=== PATIENT | male | born 1965 | race Caucasian/White ===

== ENCOUNTER 2016-04-04 14:46 | Inpatient (IN) | payer MEDICARE, OTHER ==
[2016-04-04 15:16] LABS: Glucose,Whole Blood 53 mg/dL (75-99)
[2016-04-04] MEDS ORDERED: DEXTROSE 50%-WATER 50 ML SYRINGE IVP STA (15:16)
[2016-04-04] MEDS ORDERED: DEXTROSE 5%-0.45% NACL 1,000 ML IV ONE (15:16)
[2016-04-04 15:40] LABS: Basophils # (A) 0.1 k/uL (0-0.2); Basophils % (A) 1 %; CH 33.5; CHCM 33.4; Eosinophils # (A) 0.2 k/uL (0-0.7); Eosinophils % (A) 3 %; HCT 26.3 % (39.0-53.0); HGB 8.4 gm/dL (13.0-17.5); Luc # (Auto) 0.14; Luc % (Auto) 3; Lymphocytes # (A) 0.7 k/uL (1.0-4.8); Lymphocytes % (A) 13 %; MCHC 31.8 g/dL (31.0-37.0); MCV 100.5 fL (80.0-100.0); Macrocytosis Slight; Mean Platelet Volume 9.4; Monocytes # (A) 0.3 k/uL (0-1.0); Monocytes % (A) 6 %; Neutrophils # (A) 4.1 k/uL (1.3-7.7); Neutrophils % (A) 74 %; RBC 2.61 m/uL (4.30-5.90); RDW 14.7 % (11.5-15.5); WBC 5.5 k/uL (3.8-10.6); WBC (Perox) 5.96
--- NOTE | 2016-04-04 15:42 | ED ---
General Adult HPI - General Chief complaint: Altered Mental Status Stated complaint: altered mental status Time Seen by Provider: 04/04/16 15:03 Source: patient, RN notes reviewed, old records reviewed Mode of arrival: EMS Limitations: no limitations - History of Present Illness Initial comments: This is a 50-year-old male here for evaluation. This patient presents here for evaluation of weakness. Debility. Altered mental status. Patient's by EMS to be hypoglycemic, he was treated and upon arrival to the emergency room he is again hypoglycemic. He has served from diabetes as well as chronic renal failure on dialysis no fevers, patient's poor strain secondary to clinical state history obtained from EMS - Related Data Home Medications Medication Instructions Recorded Confirmed Insulin Detemir [Levemir] 10 unit SQ DAILY 09/07/14 04/04/16 hydrALAZINE HCL [Apresoline] 50 mg PO TID 09/07/14 04/04/16 Calcium Acetate [Phoslo] 1,334 mg PO AC-BID 11/09/15 04/04/16 Insulin Aspart [NovoLOG] See Protocol SQ ACHS 11/09/15 04/04/16 Prochlorperazine [Compazine] 10 mg PO Q6H PRN 11/09/15 04/04/16 amLODIPine [Norvasc] 10 mg PO DAILY 11/09/15 04/04/16 Ketoconazole 2% Shampoo [Nizoral] 1 applic TOPICAL Q4D PRN 04/04/16 04/04/16 oxyCODONE HCL 20 mg PO TID 04/04/16 04/04/16 Previous Rx's Medication Instructions Recorded Labetalol [Trandate] 400 mg PO BID 30 Days 08/20/13 Allergies Allergy/AdvReac Type Severity Reaction Status Date / Time codeine AdvReac Mild Itching Verified 11/09/15 12:30 Review of Systems ROS Statement: Those systems with pertinent positive or pertinent negative responses have been documented in the HPI. ROS Other: All systems not noted in ROS Statement are negative. Past Medical History Past Medical History: Diabetes Mellitus, Renal Disease Additional Past Medical History / Comment(s): ESRD on hemodialysis and AV fistula in left arm; gastroparesis with gastritis; diabetic retinopathy with legal blindness; R eye glaucoma, non ishchemic cardiomyopathy; recurrent pericarditis; chronic back pain, diabetic neuropathy, chronic low back pain, metabolic encephalopathy, hyperosmolar nonketotic, neck fracture and neck pain, hyperglycemia, LVH-2-17-15 TO ER WITH FALL,CONFUSION,CRD. left arm fistula. History of Any Multi-Drug Resistant Organisms: MRSA Date of last positivie culture/infection: 11/04/2013 MDRO Source:: Blood, chest dialysis port Additional Past Surgical History / Comment(s): Eye surgery, colonoscopy, egd, av fistula left arm, R port removal due to infection-MRSA in port and blood. Past Anesthesia/Blood Transfusion Reactions: No Reported Reaction Past Psychological History: No Psychological Hx Reported, Anxiety Additional Psychological History / Comment(s): Pt lives with at home. Pt is fairly independent with most ADL's. His helps when needed. Pt has a cane which he uses most of the time. He has a walker when he feels he needs it- he uses it rarely. .MANAGE his meds and checks his blood sugar.(BUT APPARENTLY NOT THERE BECAUSE SHE IS IN ALF CURRENTLY) They have been over 20 yrs. Smoking Status: Current every day smoker Past Alcohol Use History: None Reported Additional Past Alcohol Use History / Comment(s): Pt is quitting smoking - he is down to a pack a week. He started smoking about 35 yrs ago. Past Drug Use History: Marijuana Additional Drug Use History / Comment(s): Pt will use marijuana if he is having a painful day or if B/P is elevated. He does not use on a daily basis. - Past Family History Mother Family Medical History: Hypertension Father Family Medical History: Cancer Additional Family Medical History / Comment(s): Father has prostate cancer. He is 75 yrs old and very active. Daughter(s) Family Medical History: No Reported History General Exam Limitations: no limitations General appearance: alert, obtunded, in distress, cachectic Head exam: Present: atraumatic, normocephalic, normal inspection Eye exam: Present: normal appearance, PERRL, EOMI. Absent: scleral icterus, conjunctival injection, periorbital swelling ENT exam: Present: normal exam, mucous membranes moist Neck exam: Present: normal inspection. Absent: tenderness, meningismus, lymphadenopathy Respiratory exam: Present: normal lung sounds bilaterally. Absent: respiratory distress, wheezes, rales, rhonchi, stridor Cardiovascular Exam: Present: regular rate, normal rhythm, normal heart sounds. Absent: systolic murmur, diastolic murmur, rubs, gallop, clicks GI/Abdominal exam: Present: soft, normal bowel sounds. Absent: distended, tenderness, guarding, rebound, rigid Extremities exam: Present: normal inspection, full ROM, normal capillary refill. Absent: tenderness, pedal edema, joint swelling, calf tenderness Back exam: Present: normal inspection Neurological exam: Present: alert, oriented X3, CN II-XII intact Psychiatric exam: Present: normal affect, normal mood Skin exam: Present: warm, dry, intact, normal color. Absent: rash Course Vital Signs 04/04/16 04/04/16 14:50 15:25 Temperature 96.9 F L Pulse Rate 85 73 Respiratory 18 20 Rate Blood Pressure 151/72 139/69 O2 Sat by Pulse 97 Oximetry - Reevaluation(s) Reevaluation #1: 04/04/16 15:47 Patient having a re-lowering of blood sugar down into the 50s Reevaluation #2: 04/04/16 15:47 Patient remains and decreased level of responsiveness EKG Findings - EKG Comments: EKG Findings:: EKG shows normal sinus rhythm rate of 70, NM 160, QRS I6, QTc 476 Medical Decision Making - Medical Decision Making 50-year-old male here with multiple medical conditions and comorbidities including renal failure and diabetes. Patient currently with hypoglycemia and altered mental status. He has been 2 more episodes of hypoglycemia here in the emergency room, will be placed on D5 half normal saline admitted for further evaluation and treatment - Lab Data Result diagrams: 04/04/16 15:30 Lab Results 04/04/16 04/04/16 04/04/16 Range/Units 15:11 15:30 15:30 WBC 5.5 (3.8-10.6) k/uL RBC 2.61 L (4.30-5.90) m/uL Hgb 8.4 L (13.0-17.5) gm/dL Hct 26.3 L (39.0-53.0) % MCV 100.5 H (80.0-100.0) fL MCH 32.0 (25.0-35.0) pg MCHC 31.8 (31.0-37.0) g/dL RDW 14.7 (11.5-15.5) % Plt Count 115 L (150-450) k/uL Neutrophils % 74 % Lymphocytes % 13 % Monocytes % 6 % Eosinophils % 3 % Basophils % 1 % Neutrophils # 4.1 (1.3-7.7) k/uL Lymphocytes # 0.7 L (1.0-4.8) k/uL Monocytes # 0.3 (0-1.0) k/uL Eosinophils # 0.2 (0-0.7) k/uL Basophils # 0.1 (0-0.2) k/uL Macrocytosis Slight PT 10.6 (9.0-12.0) sec INR 1.0 (<1.1) APTT 25.2 (22.0-30.0) sec POC Glucose (mg/dL) 53 L (75-99) mg/dL POC Glu Head Baker ID Desi Flores - Radiology Data Radiology results: report reviewed (Chest x-ray negative for acute disease), image reviewed Disposition Clinical Impression: Chronic renal failure, Renal failure (ARF), acute on chronic, Altered mental status, Debility, Hypoglycemia associated with diabetes, Pneumonia Disposition: ADMITTED IP TO THIS [facility] Condition: Serious Referrals: Teresa Golden MD [Primary Care Provider] - 1-2 days
[2016-04-04 15:49] LABS: Partial Thromboplastin Time 25.2 sec (22.0-30.0); Prothrombin Time 10.6 sec (9.0-12.0)
--- NOTE | 2016-04-04 15:51 | XR ---
EXAMINATION TYPE: XR chest 2V DATE OF EXAM: 04/04/2016 3:45 PM COMPARISON: Chest x-ray November 09, 2015. HISTORY: Unresponsive TECHNIQUE: Frontal and lateral views of the chest are obtained. FINDINGS: Worsening reticulonodular interstitial changes are present throughout both lungs. No pleur al effusion or pneumothorax is present bilaterally. The cardiac silhouette size is within normal ward its with atherosclerotic thoracic aorta. The osseous structures are demineralized. IMPRESSION: New or significantly worsening reticulonodular changes bilaterally worrisome for edema a nd/or infiltrates, consider atypical infections.
[2016-04-04 15:55] LABS: Calcium 9.3 mg/dL (8.4-10.2); Magnesium 3.3 mg/dL (1.6-2.3); Phosphorous 5.3 mg/dL (2.5-4.5); Total Protein 6.2 g/dL (6.3-8.2)
[2016-04-04] MEDS ORDERED: PIPERACILLIN-TAZOBACTAM 3.375 GM in DEXTROSE/WATER 1 50ML.BAG IVPB STA (15:55)
[2016-04-04] MEDS ORDERED: LEVOFLOXACIN 750MG-D5W PMX 750 MG in DEXTROSE/WATER 1 150ML.BAG IVPB STA (15:55)
[2016-04-04] MEDS ORDERED: IPRATROPIUM-ALBUTEROL 3 ML NEB INHALATION STA (15:55)
[2016-04-04 16:01] LABS: Creatine Kinase 151 U/L (55-170)
[2016-04-04 16:09] LABS: Glucose,Whole Blood 102 mg/dL (75-99)
[2016-04-04 16:14] LABS: Troponin I <0.012 ng/mL (0.000-0.034)
[2016-04-04 16:16] LABS: Creatine Kinase MB 4.1 ng/mL (0.0-2.4)
[2016-04-04] MEDS ORDERED: SODIUM CHLORIDE 0.9% 1,000 ML IV ONE (16:54)
[2016-04-04 17:17] LABS: Glucose,Whole Blood 80 mg/dL (75-99)
[2016-04-04 18:22] LABS: Glucose,Whole Blood 77 mg/dL (75-99)
[2016-04-04] MEDS: INSULIN LISPRO (humaLOG) 300 UNIT/3 ML VIAL SQ SCH (18:37)
[2016-04-04] MEDS ORDERED: IPRATROPIUM-ALBUTEROL 3 ML NEB INHALATION PRN (18:41)
[2016-04-04 19:48] LABS: Hemoglobin A1C 6.9 % (4.2-6.1)
--- NOTE | 2016-04-04 19:57 | P.HPIM ---
History of Present Illness H&P Date: 04/04/16 Chief Complaint: Hypoglycemia/encephalopathy. This is a 50-year-old male with a previous medical history significant for hypertension and hypertensive cardiovascular disease, hyperlipidemia, diabetes mellitus type 1, end-stage renal disease on hemodialysis, patient has not been under my care for the past 2 years apparently he was at [facility] and apparently was released from there after he was assigned a public guardian currently lives in a [facility] and the patient missed his dialysis once according to him because of the transportation and he ended up becoming severely encephalopathic with hypothermia and the EMS was called and patient was found to be hypoglycemic and the he did receive 1 amp of D50 in route to the ER he was found to be low in the emergency department at [facility] subsequently was placed on D5W at 100 mL an hour this was decreased to 50 mL an hour because the patient is a renal patient and subsequently he was admitted to the hospital for evaluation and nephrology consultation was obtained for possible hemodialysis urgently since the patient missed his dialysis, at the same time had a chest x-ray that showed the infiltrate and possible pulmonary congestion versus pneumonia. He was started on IV anabiotic in the form of Levaquin as well as Zosyn and he was admitted to the hospital for evaluation. He was placed on nebulized treatment in the form of DuoNeb as well patient temperature was a bit low and he was placed on a bear hugger and the instruction was given to the nurse to admit the patient to the monitor bed specifically selective care this time Review of Systems Constitutional: Reports anorexia, Reports chronic headaches, Reports chronic pain, Reports fatigue, Reports sweats, Reports weakness, Reports weight loss Eyes: bilateral loss of vision Ears: deny: decreased hearing Ears, nose, mouth and throat: Denies dysphagia, Denies neck lump, Denies sore throat Cardiovascular: Reports dyspnea on exertion, Reports high blood pressure, Denies chest pain, Denies decreased exercise tolerance, Denies rapid heart beat , Denies shortness of breath, Denies syncope Respiratory: Reports cough, Reports cough with sputum, Reports dyspnea, Denies congestion, Denies sleep apnea, Denies snoring, Denies wheezing Gastrointestinal: Denies abdominal pain, Denies bloating, Denies BRBPR, Denies heartburn, Denies hematemesis, Denies hematochezia, Denies melena, Denies nausea , Denies vomiting Genitourinary: Denies dysuria Musculoskeletal: Reports gait dysfunction, Reports low back pain, Denies myalgias Musculoskeletal: absent: ankle pain, ankle stiffness, ankle swelling, elbow pain , elbow stiffness, elbow swelling, foot pain, foot stiffness, foot swelling, hand pain, hand stiffness, hand swelling, hip pain, hip stiffness, hip swelling , knee pain, knee stiffness, knee swelling, shoulder pain, shoulder stiffness, shoulder swelling, wrist pain, wrist stiffness, wrist swelling Integumentary: Denies pruritus, Denies rash Neurological: Reports confusion, Reports weakness, Denies numbness Psychiatric: Reports anxiety, Reports depression, Reports sadness/tearfulness, Denies suicidal ideation Endocrine: Denies fatigue, Denies weight change Past Medical History Past Medical History: Diabetes Mellitus, GERD/Reflux, Hyperlipidemia, Hypertension, Osteoarthritis (OA), Prostate Disorder, Renal Disease Additional Past Medical History / Comment(s): ESRD on hemodialysis and AV fistula in left arm; gastroparesis with gastritis; diabetic retinopathy with legal blindness; R eye glaucoma, non ishchemic cardiomyopathy; recurrent pericarditis; chronic back pain, diabetic neuropathy, chronic low back pain, metabolic encephalopathy, hyperosmolar nonketotic, neck fracture and neck pain, hyperglycemia, LVH-2-17-15 TO ER WITH FALL,CONFUSION,CRD. left arm fistula. History of Any Multi-Drug Resistant Organisms: MRSA Date of last positivie culture/infection: 11/04/2013 MDRO Source:: Blood, chest dialysis port Additional Past Surgical History / Comment(s): Eye surgery, colonoscopy, egd, av fistula left arm, R port removal due to infection-MRSA in port and blood. Past Anesthesia/Blood Transfusion Reactions: No Reported Reaction Past Psychological History: No Psychological Hx Reported, Anxiety Additional Psychological History / Comment(s): Pt lives with at home. Pt is fairly independent with most ADL's. His helps when needed. Pt has a cane which he uses most of the time. He has a walker when he feels he needs it- he uses it rarely. .MANAGE his meds and checks his blood sugar.(BUT APPARENTLY NOT THERE BECAUSE SHE IS IN HALF-WAY CURRENTLY) They have been over 20 yrs. Smoking Status: Current every day smoker Past Alcohol Use History: None Reported Additional Past Alcohol Use History / Comment(s): Pt is quitting smoking - he is down to a pack a week. He started smoking about 35 yrs ago. Past Drug Use History: Marijuana Additional Drug Use History / Comment(s): Pt will use marijuana if he is having a painful day or if B/P is elevated. He does not use on a daily basis. - Past Family History Mother Family Medical History: Hypertension Father Family Medical History: Cancer Additional Family Medical History / Comment(s): Father has prostate cancer. He is 75 yrs old and very active. Daughter(s) Family Medical History: No Reported History Medications and Allergies Home Medications Medication Instructions Recorded Confirmed Type Insulin Detemir [Levemir] 10 unit SQ DAILY 09/07/14 04/04/16 History hydrALAZINE HCL [Apresoline] 50 mg PO TID 09/07/14 04/04/16 History Calcium Acetate [Phoslo] 1,334 mg PO AC-BID 11/09/15 04/04/16 History Insulin Aspart [NovoLOG] See Protocol SQ ACHS 11/09/15 04/04/16 History Prochlorperazine [Compazine] 10 mg PO Q6H PRN 11/09/15 04/04/16 History amLODIPine [Norvasc] 10 mg PO DAILY 11/09/15 04/04/16 History Ketoconazole 2% Shampoo [Nizoral] 1 applic TOPICAL Q4D PRN 04/04/16 04/04/16 History oxyCODONE HCL 20 mg PO TID 04/04/16 04/04/16 History Allergies Allergy/AdvReac Type Severity Reaction Status Date / Time codeine AdvReac Mild Itching Verified 11/09/15 12:30 Physical Exam Vitals: Vital Signs Temp Pulse Pulse Resp BP BP Pulse Ox 04/04/16 18:51 94.2 F L 04/04/16 18:49 70 19 132/74 97 04/04/16 17:11 64 18 112/60 97 - Constitutional General appearance: mild distress, thin - EENT Eyes: abnormal pupil, no ptosis ENT: normal oropharynx, no thrush Ears: bilateral: normal - Neck Neck: no lymphadenopathy, normal ROM, no rigidity, no stridor, no thyromegaly Carotids: bilateral: upstroke normal Thyroid: bilateral: normal size - Respiratory Respiratory: bilateral: diminished, negative: dullness, rales, rhonchi, wheezing , prolonged expiration, prolonged inspiration - Cardiovascular Rhythm: regular Heart sounds: normal: S1, S2 Abnormal Heart Sounds: no rub, no S3 Gallop, no S4 Gallop, no click - Gastrointestinal General gastrointestinal: normal bowel sounds, soft, no splenomegaly, no tenderness, no umbilical hernia, no ventral hernia - Integumentary Integumentary: normal, normal turgor - Musculoskeletal Musculoskeletal: generalized weakness - Psychiatric Psychiatric: A&O x's 3, no appropriate affect, no intact judgment & insight Results CBC & Chem 7: 04/04/16 15:30 04/04/16 15:30 Thrombosis Risk Factor Assmnt - DVT/VTE Prophylaxis DVT/VTE Prophylaxis: Pharmacologic Prophylaxis ordered, Mechanical Prophylaxis ordered Assessment and Plan Plan: Assessment and plan: 1. Metabolic encephalopathy due to hypoglycemia and worsening uremia due to missed hemodialysis. Admit the patient to the hospital, start the patient on D5W at 50 mL an hour, place the patient in a bear hugger, monitor the patient blood glucose level every hour for the next few hours, and then after that every few hours. 2. Bilateral reticulonodular changes suggestive of atypical infiltrate. Start the patient on Levaquin 500 mg IV piggyback every 48 hours, Zosyn 2.25 g IV piggyback every 8 hours, obtain sputum culture, continue nebulized treatment DuoNeb 3 mL nebulization 4 times every day, oxygen support. 3. Hypertension and hypertensive cardiovascular disease . Continue labetalol 400 mg orally twice every day, hydralazine 50 mg orally 3 times every day, and amlodipine 10 g orally once every day per 4. Diabetes mellitus type 1. Hold off insulin for now because of the hypoglycemia. 5. History of TIA/CVA. Stable. 6. End-stage renal disease on hemodialysis. Consult nephrology for urgent hemodialysis. 7. Chronic low back pain with chronic pain syndrome. Continue oxycodone 20 mg orally 3 times every day. 8. DVT prophylaxis. Continue Lovenox 40 mg subcutaneously every 24 hours. 9. GI prophylaxis. Continue Protonix 40 mg orally once every day. 10. Anemia of renal disease. Monitor CBC. 11. Admitted to inpatient. 12. Estimated length of stay 2 midnights.
[2016-04-04] MEDS ORDERED: IPRATROPIUM-ALBUTEROL 3 ML NEB INHALATION SCH (20:00)
[2016-04-04 20:57] LABS: Glucose,Whole Blood 70 mg/dL (75-99)
[2016-04-04] MEDS ORDERED: INSULIN ASPART 4 UNIT SQ SCH (21:00)
[2016-04-04 21:56] LABS: Glucose,Whole Blood 89 mg/dL (75-99)
[2016-04-04] MEDS: LABETALOL 200 MG TAB PO SCH (22:51)
[2016-04-04] MEDS: hydrALAZINE HCL 50 MG TAB PO SCH (22:51)
[2016-04-04 23:22] LABS: Glucose,Whole Blood 182 mg/dL (75-99)
[2016-04-04] MEDS: PIPERACILLIN-TAZOBACTAM 3.375 GM in DEXTROSE/WATER 1 50ML.BAG IVPB SCH (23:32)
[2016-04-05 00:43] LABS: Glucose,Whole Blood 163 mg/dL (75-99)
[2016-04-05 01:52] LABS: Glucose,Whole Blood 149 mg/dL (75-99)
[2016-04-05 02:53] LABS: Glucose,Whole Blood 156 mg/dL (75-99)
[2016-04-05 04:01] LABS: Hepatitis C Virus IgG Index 0.47
[2016-04-05 04:03] LABS: Hepatitis B Core IgM Index 0.02; Hepatitis B Surface Ag Index 0.05; Hepatitis C Virus IgG Ab Negative (Negative)
[2016-04-05 04:33] LABS: Glucose,Whole Blood 164 mg/dL (75-99)
[2016-04-05 06:24] LABS: Glucose,Whole Blood 166 mg/dL (75-99)
[2016-04-05 06:58] LABS: Basophils % (A) 1 %; CH 32.9; CHCM 31.8; Eosinophils # (A) 0.2 k/uL (0-0.7); Eosinophils % (A) 4 %; HCT 24.5 % (39.0-53.0); HDW 2.27; HGB 7.7 gm/dL (13.0-17.5); Luc # (Auto) 0.14; Luc % (Auto) 3; Lymphocytes % (A) 23 %; MCHC 31.7 g/dL (31.0-37.0); MCV 104.1 fL (80.0-100.0); Macrocytosis Slight; Mean Platelet Volume 8.1; Monocytes # (A) 0.3 k/uL (0-1.0); Monocytes % (A) 8 %; Neutrophils # (A) 2.6 k/uL (1.3-7.7); Neutrophils % (A) 61 %; RBC 2.35 m/uL (4.30-5.90); RDW 14.6 % (11.5-15.5); WBC 4.3 k/uL (3.8-10.6); WBC (Perox) 4.44
[2016-04-05] MEDS: CALCIUM ACETATE 667 MG CAP PO SCH ×2 (07:14→17:00)
[2016-04-05 07:18] LABS: Calcium 8.5 mg/dL (8.4-10.2); Magnesium 2.6 mg/dL (1.6-2.3); Potassium 4.5 mmol/L (3.5-5.1); Total Protein 5.9 g/dL (6.3-8.2)
[2016-04-05] MEDS: INSULIN LISPRO (humaLOG) 300 UNIT/3 ML VIAL SQ SCH ×3 (07:18→16:58)
[2016-04-05 07:45] LABS: Glucose,Whole Blood 176 mg/dL (75-99)
[2016-04-05 08:41] LABS: Glucose,Whole Blood 139 mg/dL (75-99)
[2016-04-05] MEDS ORDERED: INSULIN DETEMIR 100 UNIT/ML 10 ML VIAL SQ SCH (09:00)
[2016-04-05] MEDS ORDERED: ENOXAPARIN 40 MG/0.4 ML SYRINGE SQ SCH (09:00)
[2016-04-05] MEDS ORDERED: LEVOFLOXACIN 750MG-D5W PMX 750 MG in DEXTROSE/WATER 1 150ML.BAG IVPB SCH (09:00)
[2016-04-05] MEDS: amLODIPine 10 MG TAB PO SCH (09:32)
[2016-04-05] MEDS: LABETALOL 200 MG TAB PO SCH ×2 (09:33→20:24)
[2016-04-05] MEDS: hydrALAZINE HCL 50 MG TAB PO SCH ×3 (09:33→23:07)
[2016-04-05] MEDS: PIPERACILLIN-TAZOBACTAM 3.375 GM in DEXTROSE/WATER 1 50ML.BAG IVPB SCH ×3 (09:49→23:08)
[2016-04-05 09:53] LABS: Glucose,Whole Blood 164 mg/dL (75-99)
--- NOTE | 2016-04-05 11:17 | CONS ---
DATE OF CONSULTATION: 04/05/2016 REASON FOR CONSULTATION: End-stage renal disease. HISTORY OF PRESENT ILLNESS: Patient is a 50-year-old white male with a history of end-stage renal disease on hemodialysis on a Thursday, Thursday, Thursday schedule via left arm AV fistula. Patient was admitted to the hospital with complaints of weakness and altered mentation. He has not been to dialysis for more than a week. His last treatment was on the 26 of March. He came in with a BUN of 130 and a creatinine of 11. Patient was dialyzed last night and he will be dialyzed again today. I asked him why he did not show up at the unit and he said he was not feeling well. Patient does have a prior history of noncompliance with his treatments. PAST MEDICAL HISTORY: End-stage renal disease, anemia of chronic disease, CKD bone mineral disorder, blindness, type 1 diabetes, diabetic gastroparesis, diabetic neuropathy and retinopathy. PAST SURGICAL HISTORY: Eye surgery, colonoscopy, left arm AV fistula, EGD. Social history is positive for smoking. No history of drug abuse, but there is history of marijuana use. No other drug abuse. Medications prior to admission included insulin, hydralazine, PhosLo, Norvasc, labetalol. Allergies include CODEINE. REVIEW OF SYSTEMS: As per HPI. Other systems negative for fever, chills, chest pain, cough. Patient did have some nausea and vomiting. No diarrhea. No significant abdominal pain. On examination, currently the patient is awake. He is not in any acute distress. Blood pressure is 157/86, heart rate 76 per minute. He is afebrile. EXAMINATION OF THE HEART: S1 and S2. EXAMINATION OF THE LUNGS: Bilateral breath sounds are heard. ABDOMEN: Soft, nontender. Examination of lower extremities shows edema 2+ bilaterally. INSTRUCTION[employer]CH[employer] SPECIALIST exam is grossly intact. Patient is moving all 4 extremities. Labs show potassium 4.5, sodium 137, BUN down to 70, creatinine 6.9. Hemoglobin 7.7 g/dL. ASSESSMENT: 1. End-stage renal disease on hemodialysis on a Thursday, Thursday, Thursday schedule via left arm AV fistula. Patient did not come for dialysis for about more than a week. His last treatment was March 26 and he came in with significantly elevated BUN and creatinine, which most likely contributed to his altered mentation as well. He was dialyzed last night. We will dialyze him again today and then on Thursday if he is still here. 2. Anemia of chronic disease with significant drop in hemoglobin possibly related to him not being on erythrocyte stimulating agents. Patient is normally maintained on ( ) at the outpatient clinic. No active bleeding is noted at this time. 3. Chronic kidney disease bone mineral disorder. Phosphorus is 4.0. 4. Lower extremity edema and volume overload, expect improvement with hemodialysis today. PLAN: Repeat dialysis today. Patient is advised regarding importance of compliance with his dialysis treatments. May continue empiric antibiotics. Hep-Lock IV fluids. Thank you for this consultation. Will continue to follow the patient with you during his hospitalization.
[2016-04-05 11:35] LABS: Glucose,Whole Blood 264 mg/dL (75-99)
[2016-04-05 12:09] LABS: Glucose,Whole Blood 274 mg/dL (75-99)
[2016-04-05] MEDS ORDERED: ALPRAZolam 0.5 MG TAB PO PRN (13:53)
[2016-04-05] MEDS: PANTOPRAZOLE 40 MG/10 ML VIAL IVP SCH (15:01)
[2016-04-05] MEDS: HYDROmorphone 1 MG/ML 1 ML SYRINGE IVP PRN ×2 (15:02→20:23)
--- NOTE | 2016-04-05 16:37 | P.PN ---
Subjective This is a 50-year-old male with a previous medical history significant for hypertension and hypertensive cardiovascular disease, hyperlipidemia, diabetes mellitus type 1, end-stage renal disease on hemodialysis, patient has not been under my care for the past 2 years apparently he was at medical [place] [facility] [place] and apparently was released from there after he was assigned a public guardian currently lives in a [facility] area [facility] and the patient missed his dialysis once according to him because of the transportation and he ended up becoming severely encephalopathic with hypothermia and the EMS was called and patient was found to be hypoglycemic and the he did receive 1 amp of D50 in route to the ER he was found to be low in the emergency department at [facility] subsequently was placed on D5W at 100 mL an hour this was decreased to 50 mL an hour because the patient is a renal patient and subsequently he was admitted to the hospital for evaluation and nephrology consultation was obtained for possible hemodialysis urgently since the patient missed his dialysis, at the same time had a chest x-ray that showed the infiltrate and possible pulmonary congestion versus pneumonia. He was started on IV anabiotic in the form of Levaquin as well as Zosyn and he was admitted to the hospital for evaluation. He was placed on nebulized treatment in the form of DuoNeb as well patient temperature was a bit low and he was placed on a bear hugger and the instruction was given to the nurse to admit the patient to the monitor bed specifically selective care this time Patient did receive an hour of hemodialysis yesterday, he suffered from severe pain and pressure in the hypogastric area patient was not able to urinate tried to put a catheter in him and was not successful, we'll consult urology for Villeda catheter placement at this time as the patient has significant urine retention, also patient will be placed on Xanax 1 mg orally twice every day as the patient was taken off it abruptly and this is grating hypertensive urgency. Patient also complaining of increased abdominal pain and there is a drop in his able to 7.7. The monitor the patient very closely after putting the Villeda catheter in. Objective - Vital Signs Vital signs: Vital Signs Temp 97.9 F 04/05/16 04:00 Pulse 84 04/05/16 04:00 Resp 16 04/05/16 04:00 BP 164/90 04/05/16 04:00 Pulse Ox 100 04/05/16 04:00 Intake & Output 04/04/16 04/05/16 04/05/16 18:59 06:59 18:59 Intake Total 600 Balance 600 Weight 63 kg Intake: Oral 600 Other: Voiding Method Urinal - Exam - Constitutional General appearance: mild distress, thin - EENT Eyes: abnormal pupil, no ptosis ENT: normal oropharynx, no thrush Ears: bilateral: normal - Neck Neck: no lymphadenopathy, normal ROM, no rigidity, no stridor, no thyromegaly Carotids: bilateral: upstroke normal Thyroid: bilateral: normal size - Respiratory Respiratory: bilateral: diminished, negative: dullness, rales, rhonchi, wheezing , prolonged expiration, prolonged inspiration - Cardiovascular Rhythm: regular Heart sounds: normal: S1, S2 Abnormal Heart Sounds: no rub, no S3 Gallop, no S4 Gallop, no click - Gastrointestinal General gastrointestinal: normal bowel sounds, soft, no splenomegaly, no tenderness, no umbilical hernia, no ventral hernia - Integumentary Integumentary: normal, normal turgor - Musculoskeletal Musculoskeletal: generalized weakness - Psychiatric Psychiatric: A&O x's 3, no appropriate affect, no intact judgment & insight - Labs CBC & Chem 7: 04/05/16 06:20 04/05/16 06:20 Labs: Abnormal Lab Results - Last 24 Hours (Table) 04/04/16 04/04/16 04/05/16 Range/Units 20:55 23:21 00:42 RBC (4.30-5.90) m/uL Hgb (13.0-17.5) gm/dL Hct (39.0-53.0) % MCV (80.0-100.0) fL Plt Count (150-450) k/uL Carbon Dioxide (22-30) mmol/L BUN (9-20) mg/dL Creatinine (0.66-1.25) mg/dL Glucose (74-99) mg/dL POC Glucose (mg/dL) 70 L 182 H 163 H (75-99) mg/dL Magnesium (1.6-2.3) mg/dL Total Protein (6.3-8.2) g/dL 04/05/16 04/05/16 04/05/16 Range/Units 01:50 02:52 04:31 RBC (4.30-5.90) m/uL Hgb (13.0-17.5) gm/dL Hct (39.0-53.0) % MCV (80.0-100.0) fL Plt Count (150-450) k/uL Carbon Dioxide (22-30) mmol/L BUN (9-20) mg/dL Creatinine (0.66-1.25) mg/dL Glucose (74-99) mg/dL POC Glucose (mg/dL) 149 H 156 H 164 H (75-99) mg/dL Magnesium (1.6-2.3) mg/dL Total Protein (6.3-8.2) g/dL 04/05/16 04/05/16 04/05/16 Range/Units 06:20 06:20 06:21 RBC 2.35 L (4.30-5.90) m/uL Hgb 7.7 L (13.0-17.5) gm/dL Hct 24.5 L (39.0-53.0) % MCV 104.1 H (80.0-100.0) fL Plt Count 121 L (150-450) k/uL Carbon Dioxide 17 L (22-30) mmol/L BUN 70 H (9-20) mg/dL Creatinine 6.90 H* (0.66-1.25) mg/dL Glucose 158 H (74-99) mg/dL POC Glucose (mg/dL) 166 H (75-99) mg/dL Magnesium 2.6 H (1.6-2.3) mg/dL Total Protein 5.9 L (6.3-8.2) g/dL 04/05/16 04/05/16 04/05/16 Range/Units 07:31 08:28 09:50 RBC (4.30-5.90) m/uL Hgb (13.0-17.5) gm/dL Hct (39.0-53.0) % MCV (80.0-100.0) fL Plt Count (150-450) k/uL Carbon Dioxide (22-30) mmol/L BUN (9-20) mg/dL Creatinine (0.66-1.25) mg/dL Glucose (74-99) mg/dL POC Glucose (mg/dL) 176 H 139 H 164 H (75-99) mg/dL Magnesium (1.6-2.3) mg/dL Total Protein (6.3-8.2) g/dL 04/05/16 04/05/16 Range/Units 11:15 12:07 RBC (4.30-5.90) m/uL Hgb (13.0-17.5) gm/dL Hct (39.0-53.0) % MCV (80.0-100.0) fL Plt Count (150-450) k/uL Carbon Dioxide (22-30) mmol/L BUN (9-20) mg/dL Creatinine (0.66-1.25) mg/dL Glucose (74-99) mg/dL POC Glucose (mg/dL) 264 H 274 H (75-99) mg/dL Magnesium (1.6-2.3) mg/dL Total Protein (6.3-8.2) g/dL Assessment and Plan Plan: Assessment and plan: 1. Metabolic encephalopathy due to hypoglycemia and worsening uremia due to missed hemodialysis. Admit the patient to the hospital, start the patient on D5W at 50 mL an hour, place the patient in a bear hugger, monitor the patient blood glucose level every hour for the next few hours, and then after that every few hours. 2. Bilateral reticulonodular changes suggestive of atypical infiltrate. Start the patient on Levaquin 500 mg IV piggyback every 48 hours, Zosyn 2.25 g IV piggyback every 8 hours, obtain sputum culture, continue nebulized treatment DuoNeb 3 mL nebulization 4 times every day, oxygen support. 3. Hypertension and hypertensive cardiovascular disease . Continue labetalol 400 mg orally twice every day, hydralazine 50 mg orally 3 times every day, and amlodipine 10 g orally once every day per 4. Diabetes mellitus type 1. Hold off insulin for now because of the hypoglycemia. 5. History of TIA/CVA. Stable. 6. End-stage renal disease on hemodialysis. Consult nephrology for urgent hemodialysis. 7. Chronic low back pain with chronic pain syndrome. Continue oxycodone 20 mg orally 3 times every day. 8. DVT prophylaxis. Continue Lovenox 40 mg subcutaneously every 24 hours. 9. GI prophylaxis. Continue Protonix 40 mg orally once every day. 10. Anemia of renal disease. Monitor CBC. 11. Urinary retention. Urology consultation for Villeda catheter placement. 12. Acute anemia. Start the patient on Protonix 40 mg IV push every 24 hours, CBC to be repeated in the next 24 hours. 13. Anxiety. Start the patient on Xanax 0.5 mg orally twice every day. 14. Chronic pain syndrome. Add Dilaudid 0.5 mg IV push every 4 hours as needed. 15. Prognosis is very guarded.
[2016-04-05 16:55] LABS: Glucose,Whole Blood 208 mg/dL (75-99)
[2016-04-05 20:40] LABS: Glucose,Whole Blood 147 mg/dL (75-99)
[2016-04-05] MEDS: PROCHLORPERAZINE 10 MG TAB PO PRN (23:39)
[2016-04-06 02:21] LABS: Glucose,Whole Blood 205 mg/dL (75-99)
[2016-04-06 06:19] LABS: Glucose,Whole Blood 198 mg/dL (75-99)
[2016-04-06] MEDS: HYDROmorphone 1 MG/ML 1 ML SYRINGE IVP PRN ×2 (06:25→10:49)
[2016-04-06] MEDS: CALCIUM ACETATE 667 MG CAP PO SCH ×2 (06:27→17:17)
[2016-04-06 06:39] LABS: Calcium 8.7 mg/dL (8.4-10.2); Potassium 4.7 mmol/L (3.5-5.1); Total Bilirubin 1.4 mg/dL (0.2-1.3); Total Protein 6.1 g/dL (6.3-8.2)
[2016-04-06] MEDS: INSULIN LISPRO (humaLOG) 300 UNIT/3 ML VIAL SQ SCH ×3 (06:42→17:16)
[2016-04-06 06:44] LABS: Basophils # (A) 0.1 k/uL (0-0.2); Basophils % (A) 1 %; CH 33.2; CHCM 31.9; Eosinophils # (A) 0.1 k/uL (0-0.7); Eosinophils % (A) 2 %; HCT 29.1 % (39.0-53.0); HDW 2.32; HGB 9.1 gm/dL (13.0-17.5); Luc # (Auto) 0.15; Luc % (Auto) 3; Lymphocytes # (A) 1.1 k/uL (1.0-4.8); Lymphocytes % (A) 20 %; MCH 32.8 pg (25.0-35.0); MCHC 31.4 g/dL (31.0-37.0); MCV 104.5 fL (80.0-100.0); Macrocytosis Moderate; Mean Platelet Volume 8.6; Monocytes # (A) 0.3 k/uL (0-1.0); Monocytes % (A) 5 %; Neutrophils % (A) 70 %; RBC 2.78 m/uL (4.30-5.90); RDW 14.5 % (11.5-15.5); WBC 5.7 k/uL (3.8-10.6); WBC (Perox) 5.87
[2016-04-06 08:47] LABS: % Iron Saturation 62.4 % (20-50)
[2016-04-06] MEDS: PIPERACILLIN-TAZOBACTAM 3.375 GM in DEXTROSE/WATER 1 50ML.BAG IVPB SCH ×2 (09:01→15:21)
[2016-04-06] MEDS: hydrALAZINE HCL 50 MG TAB PO SCH ×2 (09:04→15:23)
[2016-04-06] MEDS: amLODIPine 10 MG TAB PO SCH (09:05)
[2016-04-06] MEDS: LABETALOL 200 MG TAB PO SCH ×2 (09:05→20:43)
[2016-04-06] MEDS: ENOXAPARIN 30 MG/0.3 ML SYRINGE SQ SCH (09:08)
[2016-04-06] MEDS: PANTOPRAZOLE 40 MG/10 ML VIAL IVP SCH (09:09)
[2016-04-06] MEDS ORDERED: DARBEPOETIN ALFA 40 MCG/0.4 ML SYRINGE SQ SCH (10:00)
--- NOTE | 2016-04-06 10:01 | P.PN ---
Subjective This is a 50-year-old male with a previous medical history significant for hypertension and hypertensive cardiovascular disease, hyperlipidemia, diabetes mellitus type 1, end-stage renal disease on hemodialysis, patient has not been under my care for the past 2 years apparently he was at medical [facility] [place] and apparently was released from there after he was assigned a public guardian currently lives in a [facility] [place] and the patient missed his dialysis once according to him because of the transportation and he ended up becoming severely encephalopathic with hypothermia and the EMS was called and patient was found to be hypoglycemic and the he did receive 1 amp of D50 in route to the ER he was found to be low in the emergency department at [facility] subsequently was placed on D5W at 100 mL an hour this was decreased to 50 mL an hour because the patient is a renal patient and subsequently he was admitted to the hospital for evaluation and nephrology consultation was obtained for possible hemodialysis urgently since the patient missed his dialysis, at the same time had a chest x-ray that showed the infiltrate and possible pulmonary congestion versus pneumonia. He was started on IV anabiotic in the form of Levaquin as well as Zosyn and he was admitted to the hospital for evaluation. He was placed on nebulized treatment in the form of DuoNeb as well patient temperature was a bit low and he was placed on a bear hugger and the instruction was given to the nurse to admit the patient to the monitor bed specifically selective care this time Patient did receive an hour of hemodialysis yesterday, he suffered from severe pain and pressure in the hypogastric area patient was not able to urinate tried to put a catheter in him and was not successful, we'll consult urology for Villeda catheter placement at this time as the patient has significant urine retention, also patient will be placed on Xanax 1 mg orally twice every day as the patient was taken off it abruptly and this is grating hypertensive urgency. Patient also complaining of increased abdominal pain and there is a drop in his able to 7.7. The monitor the patient very closely after putting the Villeda catheter in. 04/06: Patient is sitting up in bed feeling a bit better today less pain, urology placed a Villeda catheter yesterday, continue current management, monitor the patient very closely for another 24 hours. He'll probably be done as again Thursday and subsequently can be discharged home. Objective - Vital Signs Vital signs: Vital Signs Temp 99.0 F 04/06/16 04:00 Pulse 81 04/06/16 04:00 Resp 16 04/06/16 04:00 BP 168/79 04/06/16 04:00 Pulse Ox 99 04/06/16 04:00 Intake & Output 04/05/16 04/06/16 04/06/16 18:59 06:59 18:59 Intake Total 350 Output Total 500 Balance 350 -500 Weight 62 kg Intake: IV 150 Dextrose 5%-0.45% NaCl 1, 150 000 ml @ 100 mls/hr IV . Q10H ONE Rx#:[id number] Intake, IV Titration 200 Amount Levofloxacin 750Mg-D5w 150 Pmx 750 mg In Dextrose/ Water 1 150ml.bag @ 100 mls/hr IVPB Q24HR [facility] Rx# :[id number] Piperacillin-Tazobactam 3 50 .375 gm In Dextrose/Water 1 50ml.bag @ 12.5 mls/hr IVPB Q8HR [facility] Rx#: [id number] Output: Urine 500 Other: Voiding Method Urinal Indwelling Catheter # Voids 50 # Bowel Movements 1 - Exam - Constitutional General appearance: mild distress, thin - EENT Eyes: abnormal pupil, no ptosis ENT: normal oropharynx, no thrush Ears: bilateral: normal - Neck Neck: no lymphadenopathy, normal ROM, no rigidity, no stridor, no thyromegaly Carotids: bilateral: upstroke normal Thyroid: bilateral: normal size - Respiratory Respiratory: bilateral: diminished, negative: dullness, rales, rhonchi, wheezing , prolonged expiration, prolonged inspiration - Cardiovascular Rhythm: regular Heart sounds: normal: S1, S2 Abnormal Heart Sounds: no rub, no S3 Gallop, no S4 Gallop, no click - Gastrointestinal General gastrointestinal: normal bowel sounds, soft, no splenomegaly, no tenderness, no umbilical hernia, no ventral hernia - Integumentary Integumentary: normal, normal turgor - Musculoskeletal Musculoskeletal: generalized weakness - Psychiatric Psychiatric: A&O x's 3, no appropriate affect, no intact judgment & insight - Labs CBC & Chem 7: 04/06/16 05:51 04/06/16 05:51 Labs: Abnormal Lab Results - Last 24 Hours (Table) 04/05/16 04/05/16 04/05/16 Range/Units 06:20 08:28 09:50 RBC (4.30-5.90) m/uL Hgb (13.0-17.5) gm/dL Hct (39.0-53.0) % MCV (80.0-100.0) fL Plt Count (150-450) k/uL Carbon Dioxide 17 L (22-30) mmol/L BUN 70 H (9-20) mg/dL Creatinine 6.90 H* (0.66-1.25) mg/dL Glucose 158 H (74-99) mg/dL POC Glucose (mg/dL) 139 H 164 H (75-99) mg/dL Magnesium 2.6 H (1.6-2.3) mg/dL Total Bilirubin (0.2-1.3) mg/dL Total Protein 5.9 L (6.3-8.2) g/dL 04/05/16 04/05/16 04/05/16 Range/Units 11:15 12:07 16:51 RBC (4.30-5.90) m/uL Hgb (13.0-17.5) gm/dL Hct (39.0-53.0) % MCV (80.0-100.0) fL Plt Count (150-450) k/uL Carbon Dioxide (22-30) mmol/L BUN (9-20) mg/dL Creatinine (0.66-1.25) mg/dL Glucose (74-99) mg/dL POC Glucose (mg/dL) 264 H 274 H 208 H (75-99) mg/dL Magnesium (1.6-2.3) mg/dL Total Bilirubin (0.2-1.3) mg/dL Total Protein (6.3-8.2) g/dL 04/05/16 04/06/16 04/06/16 Range/Units 20:39 02:19 05:51 RBC 2.78 L (4.30-5.90) m/uL Hgb 9.1 L (13.0-17.5) gm/dL Hct 29.1 L (39.0-53.0) % MCV 104.5 H (80.0-100.0) fL Plt Count 135 L (150-450) k/uL Carbon Dioxide (22-30) mmol/L BUN (9-20) mg/dL Creatinine (0.66-1.25) mg/dL Glucose (74-99) mg/dL POC Glucose (mg/dL) 147 H 205 H (75-99) mg/dL Magnesium (1.6-2.3) mg/dL Total Bilirubin (0.2-1.3) mg/dL Total Protein (6.3-8.2) g/dL 04/06/16 04/06/16 Range/Units 05:51 06:18 RBC (4.30-5.90) m/uL Hgb (13.0-17.5) gm/dL Hct (39.0-53.0) % MCV (80.0-100.0) fL Plt Count (150-450) k/uL Carbon Dioxide 18 L (22-30) mmol/L BUN 45 H (9-20) mg/dL Creatinine 5.29 H* (0.66-1.25) mg/dL Glucose 196 H (74-99) mg/dL POC Glucose (mg/dL) 198 H (75-99) mg/dL Magnesium (1.6-2.3) mg/dL Total Bilirubin 1.4 H (0.2-1.3) mg/dL Total Protein 6.1 L (6.3-8.2) g/dL Microbiology - Last 24 Hours (Table) 04/05/16 18:08 Urine Culture - Preliminary Urine,Catheterized Assessment and Plan Plan: Assessment and plan: 1. Metabolic encephalopathy due to hypoglycemia and worsening uremia due to missed hemodialysis. Admit the patient to the hospital, start the patient on D5W at 50 mL an hour, place the patient in a bear hugger, monitor the patient blood glucose level every hour for the next few hours, and then after that every few hours. 2. Bilateral reticulonodular changes suggestive of atypical infiltrate. Start the patient on Levaquin 500 mg IV piggyback every 48 hours, Zosyn 2.25 g IV piggyback every 8 hours, obtain sputum culture, continue nebulized treatment DuoNeb 3 mL nebulization 4 times every day, oxygen support. 3. Hypertension and hypertensive cardiovascular disease . Continue labetalol 400 mg orally twice every day, hydralazine 50 mg orally 3 times every day, and amlodipine 10 g orally once every day per 4. Diabetes mellitus type 1. Hold off insulin for now because of the hypoglycemia. 5. History of TIA/CVA. Stable. 6. End-stage renal disease on hemodialysis. Consult nephrology for urgent hemodialysis. 7. Chronic low back pain with chronic pain syndrome. Continue oxycodone 20 mg orally 3 times every day. 8. DVT prophylaxis. Continue Lovenox 40 mg subcutaneously every 24 hours. 9. GI prophylaxis. Continue Protonix 40 mg orally once every day. 10. Anemia of renal disease. Monitor CBC. 11. Urinary retention. Urology consultation for Villeda catheter placement. Was done yesterday. 12. Acute anemia. Start the patient on Protonix 40 mg IV push every 24 hours, CBC to be repeated in the next 24 hours. 13. Anxiety. Start the patient on Xanax 0.5 mg orally twice every day. 14. Chronic pain syndrome. Add Dilaudid 0.5 mg IV push every 4 hours as needed. 15. Prognosis is very guarded. 16. Home tomorrow morning.
--- NOTE | 2016-04-06 10:12 | PN ---
Patient is seen for follow-up for end-stage renal disease. He was admitted to the hospital with this severely elevated BUN and creatinine after having missed more than a week off dialysis as outpatient. Patient also had some degree of urine retention and Urology was consulted and Villeda catheter was placed. He was dialyzed yesterday and Thursday night. Patient will be scheduled for routine dialysis tomorrow. On examination, currently blood pressure is 168/79, heart rate 81 per minute. He is afebrile. He is currently sleeping and arousable, not in any acute distress. Heart sounds are heard. Lungs are clear. Examination of lower extremities shows 1+ edema bilaterally. Labs show sodium 140, potassium 4.7. Hemoglobin 9.1 g/dL. ASSESSMENT: 1. End-stage renal disease on hemodialysis on a Thursday, Thursday, Thursday schedule with history of noncompliance having missed dialysis for about a week prior to this admission. Patient will be dialyzed tomorrow. 2. Anemia of chronic disease. Will maintain patient on Aranesp. 3. Urine retention, status post Villeda catheter placement. 4. Fluid overload on initial admission, currently improved. 5. Chronic kidney disease bone mineral disorder. 6. Hypertension, partly volume sensitive, continue current oral medications. PLAN: Hemodialysis in a.m.
[2016-04-06 11:56] LABS: Glucose,Whole Blood 236 mg/dL (75-99)
--- NOTE | 2016-04-06 13:39 | P.GSCN ---
History of Present Illness Consult date: 04/06/16 Reason for Consult: Urinary Retention Requesting physician: Teresa Golden History of present illness: The patient is a 50-year-old white male with end-stage renal disease. He has been on hemodialysis for many years. He was admitted with metabolic encephalopathy related to hypoglycemia and the fact that he missed a hemodialysis appointment. He developed urinary retention. Initial attempts by the nursing staff to place a Villeda catheter were unsuccessful. Ultimately, a coud-tip Villeda catheter was placed yesterday, with a return of 600 mL of urine. The patient denies any prior episodes of urinary retention. He has recently experienced constipation, and states that he had a large bowel movement this morning. Review of Systems - Gastrointestinal Reports constipation - Genitourinary Denies dysuria, Denies hematuria - Neurological Reports confusion Past Medical History Past Medical History: Diabetes Mellitus, GERD/Reflux, Hyperlipidemia, Hypertension, Osteoarthritis (OA), Prostate Disorder, Renal Disease Additional Past Medical History / Comment(s): ESRD on hemodialysis and AV fistula in left arm; gastroparesis with gastritis; diabetic retinopathy with legal blindness; R eye glaucoma, non ishchemic cardiomyopathy; recurrent pericarditis; chronic back pain, diabetic neuropathy, chronic low back pain, metabolic encephalopathy, hyperosmolar nonketotic, neck fracture and neck pain, stated fell and fx vertebra in back. hyperglycemia,. left arm fistula. History of Any Multi-Drug Resistant Organisms: MRSA Year Discovered:: 11/04/2013 MDRO Source:: Blood, chest dialysis port Additional Past Surgical History / Comment(s): Eye surgery, colonoscopy, egd, av fistula left arm, R port removal due to infection-MRSA in port and blood. Past Anesthesia/Blood Transfusion Reactions: No Reported Reaction Past Psychological History: No Psychological Hx Reported, Anxiety Additional Psychological History / Comment(s): SPOKE WITH PT'S PUBLIC LEGAL GUARDIAN CATE-AT TIME OF THIS ADMIT PT IS A FULL CODE .SHE STATED IF PT BECOMES MORE ALERT AND ORIENTATED AND WISHES LATER TO CHANGE CODE STATUS-GIVE HER A CALL AT [phone]. HE STATED THAT SINCE 2014 HE HAD MORENA LIVING AT [facility] AND OF THURSDAY MOVED INTO INDEPENDANT LIVING APT(PT WAS CONFUSED ABOUT THIS WHEN ASKED) Pt has a cane which he uses most of the time. He has a walker when he feels he needs it- pt stated he has been for 25 years but aprt because he was at [facility] since 2014 Smoking Status: Current every day smoker Past Alcohol Use History: None Reported Additional Past Alcohol Use History / Comment(s): Pt is quitting smoking - he is down to a pack a week-WHICH IS DOWN FROM 2-3 PPD He started smoking about 35 yrs ago. Past Drug Use History: Marijuana Additional Drug Use History / Comment(s): Pt will use marijuana if he is having a painful day or if B/P is elevated. He does not use on a daily basis. - Past Family History Mother Family Medical History: Hypertension Father Family Medical History: Cancer Additional Family Medical History / Comment(s): Father has prostate cancer. He is 75 yrs old and very active. Daughter(s) Family Medical History: No Reported History Medications and Allergies Home Medications Medication Instructions Recorded Confirmed Type Insulin Detemir [Levemir] 10 unit SQ DAILY 09/07/14 04/04/16 History hydrALAZINE HCL [Apresoline] 50 mg PO TID 09/07/14 04/04/16 History Calcium Acetate [Phoslo] 1,334 mg PO AC-BID 11/09/15 04/04/16 History Insulin Aspart [NovoLOG] See Protocol SQ ACHS 11/09/15 04/04/16 History Prochlorperazine [Compazine] 10 mg PO Q6H PRN 11/09/15 04/04/16 History amLODIPine [Norvasc] 10 mg PO DAILY 11/09/15 04/04/16 History Ketoconazole 2% Shampoo [Nizoral] 1 applic TOPICAL Q4D PRN 04/04/16 04/04/16 History oxyCODONE HCL 20 mg PO TID 04/04/16 04/04/16 History Allergies Allergy/AdvReac Type Severity Reaction Status Date / Time codeine AdvReac Mild Itching Verified 11/09/15 12:30 Surgical - Exam Vital Signs Pulse Resp BP Pulse Ox 85 18 151/72 97 04/04/16 14:50 04/04/16 14:50 04/04/16 14:50 04/04/16 14:50 - General well developed, well nourished, no distress - Abdomen Abdomen: soft, tender (mild suprapubic tenderness), no guarding, no rigid, no rebound - Genitourinary normal penis with no external lesions, testicles non-tender - Rectum Rectum: normal sphincter tone, no masses, other (prostate mildly enlarged and smooth) Results - Labs 04/06/16 05:51 04/06/16 05:51 Abnormal Lab Results - Last 24 Hours (Table) 04/05/16 04/05/16 04/05/16 Range/Units 09:50 11:15 12:07 RBC (4.30-5.90) m/uL Hgb (13.0-17.5) gm/dL Hct (39.0-53.0) % MCV (80.0-100.0) fL Plt Count (150-450) k/uL Carbon Dioxide (22-30) mmol/L BUN (9-20) mg/dL Creatinine (0.66-1.25) mg/dL Glucose (74-99) mg/dL POC Glucose (mg/dL) 164 H 264 H 274 H (75-99) mg/dL TIBC (261-462) ug/dL % Saturation (20-50) % Ferritin (18-464) ng/mL Total Bilirubin (0.2-1.3) mg/dL Total Protein (6.3-8.2) g/dL 04/05/16 04/05/16 04/06/16 Range/Units 16:51 20:39 02:19 RBC (4.30-5.90) m/uL Hgb (13.0-17.5) gm/dL Hct (39.0-53.0) % MCV (80.0-100.0) fL Plt Count (150-450) k/uL Carbon Dioxide (22-30) mmol/L BUN (9-20) mg/dL Creatinine (0.66-1.25) mg/dL Glucose (74-99) mg/dL POC Glucose (mg/dL) 208 H 147 H 205 H (75-99) mg/dL TIBC (261-462) ug/dL % Saturation (20-50) % Ferritin (18-464) ng/mL Total Bilirubin (0.2-1.3) mg/dL Total Protein (6.3-8.2) g/dL 04/06/16 04/06/16 04/06/16 Range/Units 05:51 05:51 06:18 RBC 2.78 L (4.30-5.90) m/uL Hgb 9.1 L (13.0-17.5) gm/dL Hct 29.1 L (39.0-53.0) % MCV 104.5 H (80.0-100.0) fL Plt Count 135 L (150-450) k/uL Carbon Dioxide 18 L (22-30) mmol/L BUN 45 H (9-20) mg/dL Creatinine 5.29 H* (0.66-1.25) mg/dL Glucose 196 H (74-99) mg/dL POC Glucose (mg/dL) 198 H (75-99) mg/dL TIBC 210 L (261-462) ug/dL % Saturation 62.4 H (20-50) % Ferritin 799 H (18-464) ng/mL Total Bilirubin 1.4 H (0.2-1.3) mg/dL Total Protein 6.1 L (6.3-8.2) g/dL Microbiology - Last 24 Hours (Table) 04/05/16 18:08 Urine Culture - Preliminary Urine,Catheterized Diabetes panel 04/06/16 Range/Units 05:51 Sodium 140 (137-145) mmol/L Potassium 4.7 (3.5-5.1) mmol/L Chloride 98 (98-107) mmol/L Carbon Dioxide 18 L (22-30) mmol/L BUN 45 H (9-20) mg/dL Creatinine 5.29 H* (0.66-1.25) mg/dL Glucose 196 H (74-99) mg/dL Calcium 8.7 (8.4-10.2) mg/dL AST 18 (17-59) U/L ALT 34 (21-72) U/L Alkaline Phosphatase 89 (38-126) U/L Total Protein 6.1 L (6.3-8.2) g/dL Albumin 4.2 (3.5-5.0) g/dL Calcium panel 04/06/16 Range/Units 05:51 Calcium 8.7 (8.4-10.2) mg/dL Albumin 4.2 (3.5-5.0) g/dL Pituitary panel 04/06/16 Range/Units 05:51 Sodium 140 (137-145) mmol/L Potassium 4.7 (3.5-5.1) mmol/L Chloride 98 (98-107) mmol/L Carbon Dioxide 18 L (22-30) mmol/L BUN 45 H (9-20) mg/dL Creatinine 5.29 H* (0.66-1.25) mg/dL Glucose 196 H (74-99) mg/dL Calcium 8.7 (8.4-10.2) mg/dL Adrenal panel 04/06/16 Range/Units 05:51 Sodium 140 (137-145) mmol/L Potassium 4.7 (3.5-5.1) mmol/L Chloride 98 (98-107) mmol/L Carbon Dioxide 18 L (22-30) mmol/L BUN 45 H (9-20) mg/dL Creatinine 5.29 H* (0.66-1.25) mg/dL Glucose 196 H (74-99) mg/dL Calcium 8.7 (8.4-10.2) mg/dL Total Bilirubin 1.4 H (0.2-1.3) mg/dL AST 18 (17-59) U/L ALT 34 (21-72) U/L Alkaline Phosphatase 89 (38-126) U/L Total Protein 6.1 L (6.3-8.2) g/dL Albumin 4.2 (3.5-5.0) g/dL Assessment and Plan (1) Urinary retention Status: Acute Plan: The patient is a 50-year-old white male with urinary retention. Metabolic encephalopathy and constipation may have been contributing factors. He currently has an indwelling Villeda catheter in place, and he had a large bowel movement this morning. I would suggest the catheter remain in place for an additional 2 days to allow bladder recompensation to occur. The catheter may then be removed for a voiding trial. This can be performed as an inpatient, or as an outpatient if the patient's condition improves such that he is stable for discharge. It would be reasonable to initiate treatment with tamsulosin to improve the likelihood that he will void successfully. Please notify me if I can be of any further assistance. Time with Patient: Greater than 30
[2016-04-06] MEDS ORDERED: LEVOFLOXACIN 500MG-D5W PMX 500 MG in DEXTROSE/WATER 1 100ML.BAG IVPB SCH (16:00)
[2016-04-06 17:09] LABS: Glucose,Whole Blood 383 mg/dL (75-99)
[2016-04-06] MEDS: PROCHLORPERAZINE 10 MG TAB PO PRN (20:43)
[2016-04-06] MEDS: SENNOSIDES-DOCUSATE SODIUM 1 EACH TAB PO SCH (20:43)
[2016-04-06 20:58] LABS: Glucose,Whole Blood 251 mg/dL (75-99)
[2016-04-07] MEDS: hydrALAZINE HCL 50 MG TAB PO SCH ×3 (00:17→16:24)
[2016-04-07] MEDS: PIPERACILLIN-TAZOBACTAM 3.375 GM in DEXTROSE/WATER 1 50ML.BAG IVPB SCH ×2 (00:17→08:27)
[2016-04-07] MEDS: CALCIUM ACETATE 667 MG CAP PO SCH (06:40)
[2016-04-07] MEDS: HYDROmorphone 1 MG/ML 1 ML SYRINGE IVP PRN ×2 (06:41→13:34)
[2016-04-07] MEDS: INSULIN LISPRO (humaLOG) 300 UNIT/3 ML VIAL SQ SCH ×2 (06:41→12:23)
[2016-04-07 06:59] LABS: Glucose,Whole Blood 286 mg/dL (75-99)
[2016-04-07] MEDS: amLODIPine 10 MG TAB PO SCH (08:35)
[2016-04-07] MEDS: ENOXAPARIN 30 MG/0.3 ML SYRINGE SQ SCH (08:35)
[2016-04-07] MEDS: LABETALOL 200 MG TAB PO SCH (08:36)
[2016-04-07] MEDS: PANTOPRAZOLE 40 MG/10 ML VIAL IVP SCH (08:36)
[2016-04-07] MEDS: SENNOSIDES-DOCUSATE SODIUM 1 EACH TAB PO SCH (08:47)
[2016-04-07] MEDS ORDERED: INSULIN DETEMIR 100 UNIT/ML 10 ML VIAL SQ SCH (09:00)
[2016-04-07 09:13] VITALS: RESP 18
--- NOTE | 2016-04-07 12:03 | PN ---
Patient is seen for followup for end-stage renal disease. He was admitted to the hospital with weakness, hyperkalemia, fluid overload and uremia. Patient had not been to dialysis for more than a week. He was also having a lot of urine retention and significant pain and currently has an indwelling Villeda catheter. On examination, blood pressure is 141/67, heart rate 76 per minute. He is afebrile. Examination of the heart, S1 and S2. Examination of the lungs, bilateral breath sounds are heard. Abdomen is soft, nontender. Examination of the lower extremities shows no evidence of edema. Left arm AV fistula is intact. Labs are not available from today. Yesterday potassium was 4.7, hemoglobin 9.1 g/dL. ASSESSMENT: 1. End-stage renal disease on hemodialysis on a Thursday, Thursday, Thursday schedule. The patient will be dialyzed today. 2. Anemia of chronic disease with significant anemia at the time of admission secondary to patient not receiving the Procrit as he was noncompliant with his dialysis. Currently this has improved. 3. Urine retention, currently now with an indwelling Villeda catheter. 4. Uremia, currently resolved. 5. Type 1 diabetes. PLAN: Hemodialysis today. Possible discharge post dialysis. Patient will need to follow up with Urology as outpatient.
[2016-04-07 12:10] LABS: Glucose,Whole Blood 183 mg/dL (75-99)
--- NOTE | 2016-04-07 13:26 | P.DS ---
Providers Date of admission: 04/04/16 16:55 Expected date of discharge: 04/07/16 Attending physician: Teresa Golden Consults: 04/05/16 13:55 Consult Physician Routine Consulting Provider: Sumeet Umanzor Consult Reason/Comments: Silverman catheter/urinary retention Do you want consulting provider notified?: Yes Primary care physician: Teresa Golden [facility] Course: This is a 50-year-old male with a previous medical history significant for hypertension and hypertensive cardiovascular disease, hyperlipidemia, diabetes mellitus type 1, end-stage renal disease on hemodialysis, patient has not been under my care for the past 2 years apparently he was at [facility] and apparently was released from there after he was assigned a public guardian currently lives in a [place] area and the patient missed his dialysis once according to him because of the transportation and he ended up becoming severely encephalopathic with hypothermia and the EMS was called and patient was found to be hypoglycemic and the he did receive 1 amp of D50 in route to the ER he was found to be low in the emergency department at [facility] subsequently was placed on D5W at 100 mL an hour this was decreased to 50 mL an hour because the patient is a renal patient and subsequently he was admitted to the hospital for evaluation and nephrology consultation was obtained for possible hemodialysis urgently since the patient missed his dialysis, at the same time had a chest x-ray that showed the infiltrate and possible pulmonary congestion versus pneumonia. He was started on IV anabiotic in the form of Levaquin as well as Zosyn and he was admitted to the hospital for evaluation. He was placed on nebulized treatment in the form of DuoNeb as well patient temperature was a bit low and he was placed on a bear hugger and the instruction was given to the nurse to admit the patient to the monitor bed specifically selective care this time Patient did receive an hour of hemodialysis yesterday, he suffered from severe pain and pressure in the hypogastric area patient was not able to urinate tried to put a catheter in him and was not successful, we'll consult urology for Silverman catheter placement at this time as the patient has significant urine retention, also patient will be placed on Xanax 1 mg orally twice every day as the patient was taken off it abruptly and this is grating hypertensive urgency. Patient also complaining of increased abdominal pain and there is a drop in his able to 7.7. The monitor the patient very closely after putting the Silverman catheter in. 04/06: Patient is sitting up in bed feeling a bit better today less pain, urology placed a Silverman catheter yesterday, continue current management, monitor the patient very closely for another 24 hours. He'll probably be done as again Thursday and subsequently can be discharged home. 04/07: Patient is scheduled for hemodialysis today. He has been seen in consultation by Dr. Fernández with recommendations to maintain the Silverman catheter for 2 additional days and then be removed for a voiding trial and continue Flomax. Patient will have home care set up to remove silverman. He will follow up with HD on Thursday. Patient will be discharged home today in stable condition. Discharge diagnoses: 1. Metabolic encephalopathy due to hypoglycemia and worsening uremia due to missed hemodialysis. 2. Bilateral reticulonodular changes suggestive of atypical infiltrate. 3. Hypertension and hypertensive cardiovascular disease 4. Diabetes mellitus type 1. 5. History of TIA/CVA. Stable. 6. End-stage renal disease on hemodialysis. 7. Chronic low back pain with chronic pain syndrome. 8. DVT prophylaxis. 9. GI prophylaxis. 10. Anemia of renal disease. 11. Urinary retention. 12. Acute anemia. 13. Anxiety generalized disorder 14. Chronic pain syndrome. . Discharge plan: To be determined Impression and plan of care have been directed as dictated by the signing physician. Erlinda Vidales nurse practitioner acting as scribe for signing physician. Patient Condition at Discharge: Stable Plan - Discharge Summary New Discharge Prescriptions: Levofloxacin [Levaquin] 500 mg PO Q48H #3 tab Tamsulosin [Flomax] 0.4 mg PO DAILY #30 cap Discharge Medication List Labetalol [Trandate] 400 mg PO BID 30 Days 08/20/13 [Rx] Insulin Detemir [Levemir] 10 unit SQ DAILY 09/07/14 [History] hydrALAZINE HCL [Apresoline] 50 mg PO TID 09/07/14 [History] Calcium Acetate [PhosLo] 1,334 mg PO AC-BID 11/09/15 [History] Insulin Aspart [NovoLOG] See Protocol SQ ACHS 11/09/15 [History] Prochlorperazine [Compazine] 10 mg PO Q6H PRN 11/09/15 [History] amLODIPine [Norvasc] 10 mg PO DAILY 11/09/15 [History] Ketoconazole 2% Shampoo [Nizoral] 1 applic TOPICAL Q4D PRN 04/04/16 [History] oxyCODONE HCL 20 mg PO TID 04/04/16 [History] Levofloxacin [Levaquin] 500 mg PO Q48H #3 tab 04/07/16 [Rx] Tamsulosin [Flomax] 0.4 mg PO DAILY #30 cap 04/07/16 [Rx] Follow up Appointment(s)/Referral(s): Teresa Golden MD [Primary Care Provider] - 1 Week Discharge Disposition: HOME WITH HOME HEALTH SERVICES
[2016-04-07 16:29] VITALS: BP 144/70; PULSE 74; TEMP 98.5
[2016-04-07] MEDS ORDERED: PIPERACILLIN-TAZOBACTAM 3.375 GM in DEXTROSE/WATER 1 50ML.BAG IVPB SCH (21:00)
[2016-04-08] MEDS ORDERED: PANTOPRAZOLE 40 MG TABLET PO SCH (09:00)
[2016-04-08] MEDS ORDERED: LEVOFLOXACIN 500 MG TAB PO SCH (16:00)
== END 2016-04-07 16:40 | disposition home health service (06) | DRG 637 ==
LOC: EC 14:46 → 4MS4W 16:55 → 6SEL 20:38
PROVIDERS: ADMIT Internal Medicine; ATTEND Internal Medicine
PROC: 5A1D00Z (ICD-10-PCS; principal; 2016-04-05)
DX: E10.649 Type 1 diabetes mellitus with hypoglycemia without coma (principal); G93.41 Metabolic encephalopathy; N17.9 Acute kidney failure, unspecified; I42.9 Cardiomyopathy, unspecified; I13.11 Hypertensive heart and chronic kidney disease without heart failure, with stage 5 chronic kidney disease, or end stage renal disease; N18.6 End stage renal disease; E87.70 Fluid overload, unspecified; K31.84 Gastroparesis; E10.43 Type 1 diabetes mellitus with diabetic autonomic (poly)neuropathy; E10.22 Type 1 diabetes mellitus with diabetic chronic kidney disease; E10.319 Type 1 diabetes mellitus with unspecified diabetic retinopathy without macular edema; D63.1 Anemia in chronic kidney disease; G89.4 Chronic pain syndrome; M54.5 Low back pain; E78.5 Hyperlipidemia, unspecified; K21.9 Gastro-esophageal reflux disease without esophagitis; M19.90 Unspecified osteoarthritis, unspecified site; H54.8 Legal blindness, as defined in USA; H40.9 Unspecified glaucoma; Z99.2 Dependence on renal dialysis; Z91.19 Patient's noncompliance with other medical treatment and regimen; Z86.14 Personal history of Methicillin resistant Staphylococcus aureus infection; F17.200 Nicotine dependence, unspecified, uncomplicated; E87.5 Hyperkalemia; R91.8 Other nonspecific abnormal finding of lung field; R33.9 Retention of urine, unspecified; F41.1 Generalized anxiety disorder; K59.00 Constipation, unspecified; F12.90 Cannabis use, unspecified, uncomplicated; Z79.4 Long term (current) use of insulin; Z88.5 Allergy status to narcotic agent; Z86.73 Personal history of transient ischemic attack (TIA), and cerebral infarction without residual deficits; Z79.899 Other long term (current) drug therapy
CPT/HCPCS: 36415; 71020; 80053; 80074; 82550; 82553; 82728; 83036; 83540; 83550; 83605; 83735; 84100; 84484; 85025; 85610; 85730; 87040; 87077; 87086; 87186; 90935; 93005; 96361; 96365; 96375; 99285

== ENCOUNTER 2016-05-11 06:56 | Emergency (ER) | payer MEDICARE, OTHER ==
[2016-05-11] MEDS ORDERED: SODIUM CHLORIDE 0.9% 1,000 ML IV STA ×2 (07:19)
--- NOTE | 2016-05-11 07:23 | ED ---
General Adult HPI - General Chief complaint: Altered Mental Status Stated complaint: alter mental status Time Seen by Provider: 05/11/16 07:00 Source: patient, EMS, RN notes reviewed Mode of arrival: EMS - History of Present Illness Initial comments: This is a 50-year-old male history of insulin-dependent diabetes and chronic pain syndrome who came in this morning by EMS for complaints of elevated blood sugar and abdominal pain. Per EMS he was also altered as far as his mental status. He denies any fevers chills sweats he does have a slight cough he has had chronic pain to his abdomen. He says this is nothing new on the ordinary. - Related Data Home Medications Medication Instructions Recorded Confirmed Insulin Detemir [Levemir] 10 unit SQ DAILY 09/07/14 04/04/16 hydrALAZINE HCL [Apresoline] 50 mg PO TID 09/07/14 04/04/16 Calcium Acetate [PhosLo] 1,334 mg PO AC-BID 11/09/15 04/04/16 Insulin Aspart [NovoLOG] See Protocol SQ ACHS 11/09/15 04/04/16 Prochlorperazine [Compazine] 10 mg PO Q6H PRN 11/09/15 04/04/16 amLODIPine [Norvasc] 10 mg PO DAILY 11/09/15 04/04/16 Ketoconazole 2% Shampoo [Nizoral] 1 applic TOPICAL Q4D PRN 04/04/16 04/04/16 oxyCODONE HCL 20 mg PO TID 04/04/16 04/04/16 Previous Rx's Medication Instructions Recorded Labetalol [Trandate] 400 mg PO BID 30 Days 08/20/13 Levofloxacin [Levaquin] 500 mg PO Q48H #3 tab 04/07/16 Tamsulosin [Flomax] 0.4 mg PO DAILY #30 cap 04/07/16 Allergies Allergy/AdvReac Type Severity Reaction Status Date / Time codeine AdvReac Mild Itching Verified 11/09/15 12:30 Review of Systems ROS Statement: Those systems with pertinent positive or pertinent negative responses have been documented in the HPI. ROS Other: All systems not noted in ROS Statement are negative. Past Medical History Past Medical History: Diabetes Mellitus, GERD/Reflux, Hyperlipidemia, Hypertension, Osteoarthritis (OA), Prostate Disorder, Renal Disease Additional Past Medical History / Comment(s): ESRD on hemodialysis and AV fistula in left arm; gastroparesis with gastritis; diabetic retinopathy with legal blindness; R eye glaucoma, non ishchemic cardiomyopathy; recurrent pericarditis; chronic back pain, diabetic neuropathy, chronic low back pain, metabolic encephalopathy, hyperosmolar nonketotic, neck fracture and neck pain, stated fell and fx vertebra in back. hyperglycemia,. left arm fistula. History of Any Multi-Drug Resistant Organisms: MRSA Date of last positivie culture/infection: 11/04/13 MDRO Source:: Blood Additional Past Surgical History / Comment(s): Eye surgery, colonoscopy, egd, av fistula left arm, R port removal due to infection-MRSA in port and blood. Past Anesthesia/Blood Transfusion Reactions: No Reported Reaction Past Psychological History: No Psychological Hx Reported, Anxiety Additional Psychological History / Comment(s): SPOKE WITH PT'S PUBLIC LEGAL GUARDIAN CATE-AT TIME OF THIS ADMIT PT IS A FULL CODE .SHE STATED IF PT BECOMES MORE ALERT AND ORIENTATED AND WISHES LATER TO CHANGE CODE STATUS-GIVE HER A CALL AT [phone]. HE STATED THAT SINCE 2014 HE HAD [facility]NA LIVING AT [facility] AND OF THURSDAY MOVED INTO INDEPENDANT LIVING APT(PT WAS CONFUSED ABOUT THIS WHEN ASKED) Pt has a cane which he uses most of the time. He has a walker when he feels he needs it- pt stated he has been for 25 years but aprt because he was at [facility] since 2014 Smoking Status: Current every day smoker Past Alcohol Use History: None Reported Additional Past Alcohol Use History / Comment(s): Pt is quitting smoking - he is down to a pack a week-WHICH IS DOWN FROM 2-3 PPD He started smoking about 35 yrs ago. Past Drug Use History: Marijuana Additional Drug Use History / Comment(s): Pt will use marijuana if he is having a painful day or if B/P is elevated. He does not use on a daily basis. - Past Family History Mother Family Medical History: Hypertension Father Family Medical History: Cancer Additional Family Medical History / Comment(s): Father has prostate cancer. He is 75 yrs old and very active. Daughter(s) Family Medical History: No Reported History General Exam - General Exam Comments Initial Comments: This is a well-developed well-nourished awake alert oriented times 3 male General appearance: alert, in no apparent distress Head exam: Present: atraumatic, normocephalic, normal inspection Eye exam: Present: normal appearance, PERRL, EOMI. Absent: scleral icterus, conjunctival injection, periorbital swelling ENT exam: Present: normal exam, mucous membranes moist Neck exam: Present: normal inspection. Absent: tenderness, meningismus, lymphadenopathy Respiratory exam: Present: normal lung sounds bilaterally. Absent: respiratory distress, wheezes, rales, rhonchi, stridor Cardiovascular Exam: Present: regular rate, normal rhythm, normal heart sounds. Absent: systolic murmur, diastolic murmur, rubs, gallop, clicks GI/Abdominal exam: Present: soft, tenderness, normal bowel sounds. Absent: distended, guarding, rebound, rigid Rectal exam: Present: deferred Extremities exam: Present: normal inspection, full ROM, normal capillary refill. Absent: tenderness, pedal edema, joint swelling, calf tenderness Back exam: Present: normal inspection Neurological exam: Present: alert, oriented X3, CN II-XII intact Psychiatric exam: Present: normal affect, normal mood Skin exam: Present: warm, dry, intact, normal color. Absent: rash Course Vital Signs 05/11/16 05/11/16 05/11/16 06:59 09:00 10:00 Temperature 97.1 F L Pulse Rate 76 78 81 Respiratory 16 20 20 Rate Blood Pressure 203/96 186/91 180/88 O2 Sat by Pulse 98 100 Oximetry - Reevaluation(s) Reevaluation #1: 05/11/16 07:57 The patient later complained of back pain he does have a history of lumbar fractures apparently. X-rays will be obtained. Medical Decision Making - Medical Decision Making Patient showing much improved he will be discharged - Lab Data Result diagrams: 05/11/16 07:37 05/11/16 07:37 Lab Results 05/11/16 05/11/16 05/11/16 Range/Units 07:37 07:37 07:48 WBC 3.8 (3.8-10.6) k/uL RBC 4.02 L (4.30-5.90) m/uL Hgb 13.5 D (13.0-17.5) gm/dL Hct 41.1 (39.0-53.0) % MCV 102.3 H (80.0-100.0) fL MCH 33.5 (25.0-35.0) pg MCHC 32.8 (31.0-37.0) g/dL RDW 13.6 (11.5-15.5) % Plt Count 136 L (150-450) k/uL Neutrophils % 61 % Lymphocytes % 23 % Monocytes % 6 % Eosinophils % 5 % Basophils % 1 % Neutrophils # 2.3 (1.3-7.7) k/uL Lymphocytes # 0.9 L (1.0-4.8) k/uL Monocytes # 0.2 (0-1.0) k/uL Eosinophils # 0.2 (0-0.7) k/uL Basophils # 0.0 (0-0.2) k/uL Macrocytosis Slight Sodium 135 L (137-145) mmol/L Potassium 5.3 H (3.5-5.1) mmol/L Chloride 95 L (98-107) mmol/L Carbon Dioxide 24 (22-30) mmol/L Anion Gap 16 mmol/L BUN 46 H (9-20) mg/dL Creatinine 4.96 H (0.66-1.25) mg/dL Est GFR (MDRD) Af Amer 15 (>60 ml/min/1.73 sqM) Est GFR (MDRD) Non-Af 12 (>60 ml/min/1.73 sqM) Glucose 256 H (74-99) mg/dL POC Glucose (mg/dL) 257 H (75-99) mg/dL POC Glu Skate Boarder ID Ifeanyi Bright Calcium 9.1 (8.4-10.2) mg/dL Magnesium 2.2 (1.6-2.3) mg/dL Total Bilirubin 0.8 (0.2-1.3) mg/dL AST 27 (17-59) U/L ALT 35 (21-72) U/L Alkaline Phosphatase 103 (38-126) U/L Total Protein 6.4 (6.3-8.2) g/dL Albumin 4.4 (3.5-5.0) g/dL Amylase 53 (30-110) U/L Lipase 169 (23-300) U/L - Radiology Data Radiology results: report reviewed (Review the imaging reveals no acute findings.), image reviewed Disposition Clinical Impression: Chronic abdominal pain, Hyperglycemia, Chronic renal failure Disposition: HOME SELF-CARE Condition: Good Instructions: Abdominal Pain (ED), Type 1 Diabetes in Adults (ED), Diabetic Hyperglycemia (ED)
[2016-05-11 07:46] LABS: Basophils % (A) 1 %; CH 34.3; CHCM 33.6; Eosinophils # (A) 0.2 k/uL (0-0.7); Eosinophils % (A) 5 %; HCT 41.1 % (39.0-53.0); Luc # (Auto) 0.14; Luc % (Auto) 4; Lymphocytes # (A) 0.9 k/uL (1.0-4.8); Lymphocytes % (A) 23 %; MCH 33.5 pg (25.0-35.0); MCHC 32.8 g/dL (31.0-37.0); MCV 102.3 fL (80.0-100.0); Macrocytosis Slight; Mean Platelet Volume 7.7; Monocytes # (A) 0.2 k/uL (0-1.0); Monocytes % (A) 6 %; Neutrophils # (A) 2.3 k/uL (1.3-7.7); Neutrophils % (A) 61 %; RBC 4.02 m/uL (4.30-5.90); RDW 13.6 % (11.5-15.5); WBC 3.8 k/uL (3.8-10.6); WBC (Perox) 3.62
[2016-05-11] MEDS ORDERED: HYDROmorphone 1 MG/ML 1 ML SYRINGE IVP STA (07:56)
[2016-05-11 07:57] LABS: Calcium 9.1 mg/dL (8.4-10.2); Magnesium 2.2 mg/dL (1.6-2.3); Potassium 5.3 mmol/L (3.5-5.1); Total Bilirubin 0.8 mg/dL (0.2-1.3); Total Protein 6.4 g/dL (6.3-8.2)
[2016-05-11] MEDS ORDERED: DICYCLOMINE 10 MG/ML 2 ML AMP IM STA (07:57)
[2016-05-11 07:58] LABS: HGB 13.5 gm/dL (13.0-17.5)
[2016-05-11 08:03] LABS: Glucose,Whole Blood 257 mg/dL (75-99)
--- NOTE | 2016-05-11 08:58 | XR ---
EXAMINATION TYPE: XR abdomen 1V DATE OF EXAM: 05/11/2016 8:45 AM COMPARISON: NONE HISTORY: Pain TECHNIQUE: One view abdominal series FINDINGS: The osseous structures are intact. The bowel gas pattern is nonspecific. Lung bases are clear. Vasc ular calcifications noted. Arthropathy of the hips. Degenerative change of the spine. IMPRESSION: 1. Nonspecific abdomen.
--- NOTE | 2016-05-11 08:59 | XR ---
EXAMINATION TYPE: XR chest 2V DATE OF EXAM: 05/11/2016 8:45 AM COMPARISON: 04/04/2016 TECHNIQUE: PA and lateral views submitted. HISTORY: Pain and cough FINDINGS: The lungs are clear and there is no pneumothorax, pleural effusion, or focal pneumonia. Rib deformi ties in the right appears chronic. Degenerative change of the spine. IMPRESSION: 1. No acute process.
--- NOTE | 2016-05-11 09:01 | XR ---
EXAM TYPE: LUMBAR SPINE X RAY SERIES COMPARISON: NONE HISTORY: Lower back pain TECHNIQUE: 4 views are submitted. FINDINGS: Alignment is anatomic. The pedicles are intact. The transverse processes are intact. There is no s pondylolysis or spondylolisthesis. Vascular calcifications are noted. Degenerative change involving levels L3-S1. IMPRESSION: 1. Multilevel degenerative disc disease.
[2016-05-11] MEDS ORDERED: INSULIN REGULAR 100 UNIT/ML VIAL SQ ONE (09:44)
[2016-05-11 10:48] LABS: Glucose,Whole Blood 204 mg/dL (75-99)
[2016-05-11 11:02] LABS: Appearance,Urine Clear (Clear); Bilirubin,Urine Negative (Negative); Glucose,Urine (UA) 4+ (Negative); Protein,Urine 2+ (Negative); Urobilinogen,Urine <2.0 mg/dL (<2.0)
[2016-05-11 11:03] LABS: Leukocyte Esterase,Urine Negative (Negative); Nitrite,Urine Negative (Negative); Specific Gravity,Urine 1.005 (1.001-1.035); UA Billing (MACRO vs. MICRO) MICRO
[2016-05-11 11:04] VITALS: BP 162/84; PULSE 88; RESP 18; TEMP 98
[2016-05-11 11:07] LABS: Particle Count 192; WBC,Urine 1 /hpf (0-5)
[2016-05-11 11:08] LABS: Ketones,Urine Negative (Negative)
== END 2016-05-11 11:53 | disposition home or self-care (01) ==
LOC: EC 06:56
DX: E10.65 Type 1 diabetes mellitus with hyperglycemia (principal); E10.22 Type 1 diabetes mellitus with diabetic chronic kidney disease; R10.9 Unspecified abdominal pain; G89.29 Other chronic pain; I12.0 Hypertensive chronic kidney disease with stage 5 chronic kidney disease or end stage renal disease; N18.6 End stage renal disease; M51.36 Other intervertebral disc degeneration, lumbar region; F17.200 Nicotine dependence, unspecified, uncomplicated; E10.319 Type 1 diabetes mellitus with unspecified diabetic retinopathy without macular edema; H54.0 Blindness, both eyes; E10.40 Type 1 diabetes mellitus with diabetic neuropathy, unspecified; Z79.891 Long term (current) use of opiate analgesic; Z88.5 Allergy status to narcotic agent; Z99.2 Dependence on renal dialysis; Z82.49 Family history of ischemic heart disease and other diseases of the circulatory system; Z79.4 Long term (current) use of insulin; Z79.899 Other long term (current) drug therapy
CPT/HCPCS: 99285 ×2; 96374 ×2; 96361 ×4; 96372 ×2; 36415; 80053; 82150; 83690; 83735; 85025; 81001; 71020; 72100; 74000; J0500; J1170

== ENCOUNTER 2016-07-06 23:05 | Emergency (ER) | payer MEDICARE, OTHER ==
[2016-07-06 23:14] VITALS: RESP 16; TEMP 98.4
[2016-07-06] MEDS ORDERED: SODIUM CHLORIDE 0.9% 1,000 ML IV SCH (23:45)
[2016-07-06] MEDS ORDERED: cloNIDine HCL 0.1 MG TAB PO STA (23:53)
[2016-07-06] MEDS ORDERED: SODIUM CHLORIDE 0.9% 1,000 ML IV ONE (23:55)
[2016-07-07] MEDS ORDERED: hydrALAZINE HCL 20 MG/ML 1 ML VIAL IVP STA (00:24)
[2016-07-07 00:58] LABS: ALT 31 U/L (21-72); AST 14 U/L (17-59); Alkaline Phosphatase 95 U/L (38-126); Anion Gap 13 mmol/L; Blood Urea Nitrogen 44 mg/dL (9-20); Calcium 8.7 mg/dL (8.4-10.2); Carbon Dioxide 24 mmol/L (22-30); Chloride 90 mmol/L (98-107); Magnesium 2.2 mg/dL (1.6-2.3); Potassium 5.5 mmol/L (3.5-5.1); Sodium 127 mmol/L (137-145); Total Bilirubin 1.1 mg/dL (0.2-1.3); Total Protein 5.8 g/dL (6.3-8.2)
[2016-07-07 01:02] LABS: Basophils # (A) 0.1 k/uL (0-0.2); Basophils % (A) 1 %; CH 31.8; CHCM 32.3; Eosinophils # (A) 0.2 k/uL (0-0.7); Eosinophils % (A) 5 %; HDW 2.76; HGB 11.3 gm/dL (13.0-17.5); INR 1.1 (<1.1); Luc # (Auto) 0.06; Luc % (Auto) 1; Lymphocytes # (A) 0.7 k/uL (1.0-4.8); Lymphocytes % (A) 16 %; MCHC 31.4 g/dL (31.0-37.0); MCV 98.7 fL (80.0-100.0); Mean Platelet Volume 8.2; Monocytes # (A) 0.2 k/uL (0-1.0); Monocytes % (A) 6 %; Neutrophils # (A) 2.9 k/uL (1.3-7.7); Neutrophils % (A) 71 %; Partial Thromboplastin Time 22.7 sec (22.0-30.0); Prothrombin Time 10.9 sec (9.0-12.0); RBC 3.65 m/uL (4.30-5.90); RDW 13.1 % (11.5-15.5); WBC 4.2 k/uL (3.8-10.6); WBC (Perox) 4.26
[2016-07-07 01:14] LABS: Glucose,Whole Blood >600 mg/dL (75-99)
[2016-07-07 01:14] LABS: Glucose 864 mg/dL (74-99)
[2016-07-07 01:15] LABS: Non-African American GFR(MDRD) 11 (>60 ml/min/1.73 sqM)
--- NOTE | 2016-07-07 01:26 | CT ---
History: Reason: Pain Exam: CT HEAD Without Contrast Technique more: CTDI is 57.40 mGy and DLP is 1047.10 mGy-cm Technique more: This CT exam was performed using one or more of the following dose reduction techniques: automated exposure control, adjustment of the mA and/or kV according to patient size, and/or use of iterative reconstruction technique. Comparison: 07/07/2014 FINDINGS: No mass effect. Small amount of intraventricular hemorrhage seen at the bilateral occipital horns for example axial 24. Mildly larger appearing lateral and third ventricles may be due to early changes of hydrocephalus or interval central volume loss. No midline shift. Periventricular white matter low attenuation likely chronic small vessel ischemic change. 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 Visualized paranasal sinuses, mastoids and orbits appear unchanged with again note of displaced right globe lens. Parasellar carotid vascular calcification again seen. IMPRESSION: Small amount of intraventricular hemorrhage seen at the bilateral occipital horns for example axial 24. Mildly larger appearing lateral and third ventricles may be due to early changes of hydrocephalus or interval central volume loss. No midline shift. Chronic and involutional changes [employer] 07/07/16 01:27 Call Doctor Regarding Intracranial Hemorrhage, called Dr. Maurice on 07/07 01:25 (-04:00)
[2016-07-07] MEDS ORDERED: SODIUM CHLORIDE 0.9% 1,000 ML IV SCH (01:30)
[2016-07-07] MEDS ORDERED: INSULIN REGULAR 100 UNIT in SODIUM CHLORIDE 0.9% 100 ML IV SCH (01:30)
--- NOTE | 2016-07-07 01:35 | ED ---
Headache HPI <Wilson Araujo - Last Filed: 07/07/16 02:23> - General Source: RN notes reviewed, old records reviewed Mode of arrival: EMS Limitations: no limitations <Michelle Stock - Last Filed: 07/07/16 02:27> - General Chief Complaint: Headache Stated Complaint: headache Time Seen by Provider: 07/06/16 23:46 - History of Present Illness Initial Comments: This is a 50-year-old male presenting to the emergency department with chief complaint of a headache. Patient arrives to the emergency department via EMS. Patient reports that he had a severe headache and he became dizzy and fell in his bathroom. Patient reports that he could not get up and had a call the EMS. Patient states that his headache is a 10 out of 10. She reports that he's had a history of migraines in the past. He reports that he's had this headache for approximately a week. He states that he has a history of hypertension. He is a dialysis patient. He reports he has dialysis tomorrow. Patient states that he has a hard time managing his blood pressure with medications. Patient reports that he is blind. He denies any chest pain or shortness of breath. He denies any abdominal pain. He reports that he did vomit earlier today. Patient also complains of high blood sugars.Patient denies any recent fever, chills, shortness of breath, chest pain, back pain, abdominal pain, nausea vomiting, numbness or tingling, dysuria or hematuria, constipation or diarrhea, or any other current symptoms (Michelle Stock) - Related Data Home Medications Medication Instructions Recorded Confirmed Insulin Detemir [Levemir] 10 unit SQ DAILY 09/07/14 04/04/16 hydrALAZINE HCL [Apresoline] 50 mg PO TID 09/07/14 04/04/16 Calcium Acetate [PhosLo] 1,334 mg PO AC-BID 11/09/15 04/04/16 Insulin Aspart [NovoLOG] See Protocol SQ ACHS 11/09/15 04/04/16 Prochlorperazine [Compazine] 10 mg PO Q6H PRN 11/09/15 04/04/16 amLODIPine [Norvasc] 10 mg PO DAILY 11/09/15 04/04/16 Ketoconazole 2% Shampoo [Nizoral] 1 applic TOPICAL Q4D PRN 04/04/16 04/04/16 oxyCODONE HCL 20 mg PO TID 04/04/16 04/04/16 Previous Rx's Medication Instructions Recorded Labetalol [Trandate] 400 mg PO BID 30 Days 08/20/13 Levofloxacin [Levaquin] 500 mg PO Q48H #3 tab 04/07/16 Tamsulosin [Flomax] 0.4 mg PO DAILY #30 cap 04/07/16 Allergies Allergy/AdvReac Type Severity Reaction Status Date / Time codeine AdvReac Mild Itching Verified 11/09/15 12:30 Review of Systems ROS Other: All systems not noted in ROS Statement are negative. <Wilson Araujo - Last Filed: 07/07/16 02:23> ROS Other: All systems not noted in ROS Statement are negative. <Michelle Stock - Last Filed: 07/07/16 02:27> ROS Statement: Those systems with pertinent positive or pertinent negative responses have been documented in the HPI. Past Medical History Past Medical History: Diabetes Mellitus, GERD/Reflux, Hyperlipidemia, Hypertension, Osteoarthritis (OA), Prostate Disorder, Renal Disease Additional Past Medical History / Comment(s): ESRD on hemodialysis and AV fistula in left arm; gastroparesis with gastritis; diabetic retinopathy with legal blindness; R eye glaucoma, non ishchemic cardiomyopathy; recurrent pericarditis; chronic back pain, diabetic neuropathy, chronic low back pain, metabolic encephalopathy, hyperosmolar nonketotic, neck fracture and neck pain, stated fell and fx vertebra in back. hyperglycemia,. left arm fistula. History of Any Multi-Drug Resistant Organisms: MRSA Date of last positivie culture/infection: 11/04/13 MDRO Source:: Blood Additional Past Surgical History / Comment(s): Eye surgery, colonoscopy, egd, av fistula left arm, R port removal due to infection-MRSA in port and blood. Past Anesthesia/Blood Transfusion Reactions: No Reported Reaction Past Psychological History: No Psychological Hx Reported, Anxiety Additional Psychological History / Comment(s): SPOKE WITH PT'S PUBLIC LEGAL GUARDIAN CATE-AT TIME OF THIS ADMIT PT IS A FULL CODE .SHE STATED IF PT BECOMES MORE ALERT AND ORIENTATED AND WISHES LATER TO CHANGE CODE STATUS-GIVE HER A CALL AT [phone]. HE STATED THAT SINCE 2014 HE HAD [facility]IVING AT [facility] AND OF THURSDAY MOVED INTO [facility]DEP[facility]IV[facility] APT(PT WAS CONFUSED ABOUT THIS WHEN ASKED) Pt has a cane which he uses most of the time. He has a walker when he feels he needs it- pt stated he has been for 25 years but aprt because he was at [facility] since 2014 Smoking Status: Current every day smoker Past Alcohol Use History: None Reported Additional Past Alcohol Use History / Comment(s): Pt is quitting smoking - he is down to a pack a week-WHICH IS DOWN FROM 2-3 PPD He started smoking about 35 yrs ago. Past Drug Use History: Marijuana Additional Drug Use History / Comment(s): Pt will use marijuana if he is having a painful day or if B/P is elevated. He does not use on a daily basis. - Past Family History Mother Family Medical History: Hypertension Father Family Medical History: Cancer Additional Family Medical History / Comment(s): Father has prostate cancer. He is 75 yrs old and very active. Daughter(s) Family Medical History: No Reported History <Michelle Stock - Last Filed: 07/07/16 02:27> General Exam <Wilson Araujo - Last Filed: 07/07/16 02:23> Limitations: no limitations General appearance: alert, in no apparent distress Head exam: Present: atraumatic, normocephalic, normal inspection Eye exam: Present: normal appearance. Absent: PERRL, EOMI (Patient is blind.), scleral icterus, conjunctival injection, periorbital swelling ENT exam: Present: normal exam, mucous membranes moist. Absent: normal oropharynx Neck exam: Present: normal inspection. Absent: tenderness, meningismus, lymphadenopathy Respiratory exam: Present: normal lung sounds bilaterally. Absent: respiratory distress, wheezes, rales, rhonchi, stridor Cardiovascular Exam: Present: regular rate, normal rhythm, normal heart sounds. Absent: systolic murmur, diastolic murmur, rubs, gallop, clicks GI/Abdominal exam: Present: soft, normal bowel sounds. Absent: distended, tenderness, guarding, rebound, rigid Extremities exam: Present: normal inspection, full ROM, normal capillary refill. Absent: tenderness, pedal edema, joint swelling, calf tenderness Back exam: Present: normal inspection, full ROM Neurological exam: Present: alert, oriented X3. Absent: CN II-XII intact Expanded Cranial nerves: EOM's Intact: Abnormal Left, Abnormal Right (Patient is blind.) , Gag Reflex: Normal, Facial Sensation: Normal, Facial Palsy with Forehead Movement: Normal Upper motor neuron: Pronator Drift: Normal Sensory exam: Upper Extremity Light Touch: Normal, Lower Extremity Light Touch: Normal Motor strength exam: RUE: 5, LUE: 5, RLE: 5, LLE: 5 Eye Response: (4) open spontaneously Motor Response: (6) obeys commands Verbal Response: (5) oriented Ketan Total: 15 Psychiatric exam: Present: normal affect, normal mood Skin exam: Present: warm, dry, intact, normal color. Absent: rash <Michelle Stock - Last Filed: 07/07/16 02:27> - General Exam Comments Initial Comments: This is a chronically ill-appearing 50-year-old male. (Michelle Stock) Medical Decision Making - Lab Data Result diagrams: 07/07/16 00:10 07/07/16 00:10 <Wilson Araujo - Last Filed: 07/07/16 02:23> - Lab Data Result diagrams: 07/07/16 00:10 07/07/16 00:10 - Radiology Data Radiology results: report reviewed <Michelle Stock - Last Filed: 07/07/16 02:27> - Medical Decision Making This patient is a 50-year-old man with headache, found to be in DKA. He did describe having a low mechanism fall at home. His CT does show small amount of intraventricular hemorrhage. Case discussed with Dr. Helton at [facility] who will accept transfer there. (Wilson Araujo) This is a 50-year-old male with chief complaint of migraine-like headache for approximately. Patient arrives emergency department with a blood pressure 216/ 120. Patient reports he is a dialysis patient is scheduled tomorrow. Patient appears to be chronically ill. Patient did go to CT brain for his 12/09 headache. The findings were cussed with Dr. Maurice. Stat read did call and stated that there is a small amount of intraventricular hemorrhage seen a bilateral occipital horns. Mildly larger than lateral third ventricles may be due to early changes of hydrocephalus or interval central volume loss. Patient is blind. Patient is uncooperative with majority of the physical exam. Patient is alert and oriented 3. Glascow coma score of 15. Discussed these findings with the patient. Also discussed additional findings the patient is currently in DKA. Blood sugar of 860. Patient started on an insulin drip. Patient was given 4 mg of morphine for his headache. Given patient's computed tomography scan he'll be transferred to [facility]. Dr. Maurice took over the patient after CT results were read. (Michelle Stock) - Lab Data Lab Results 07/07/16 07/07/16 07/07/16 Range/Units 00:10 00:10 00:10 WBC 4.2 (3.8-10.6) k/uL RBC 3.65 L (4.30-5.90) m/uL Hgb 11.3 L (13.0-17.5) gm/dL Hct 36.0 L (39.0-53.0) % MCV 98.7 (80.0-100.0) fL MCH 31.0 (25.0-35.0) pg MCHC 31.4 (31.0-37.0) g/dL RDW 13.1 (11.5-15.5) % Plt Count 118 L (150-450) k/uL Neutrophils % 71 % Lymphocytes % 16 % Monocytes % 6 % Eosinophils % 5 % Basophils % 1 % Neutrophils # 2.9 (1.3-7.7) k/uL Lymphocytes # 0.7 L (1.0-4.8) k/uL Monocytes # 0.2 (0-1.0) k/uL Eosinophils # 0.2 (0-0.7) k/uL Basophils # 0.1 (0-0.2) k/uL PT 10.9 (9.0-12.0) sec INR 1.1 (<1.1) APTT 22.7 (22.0-30.0) sec Sodium 127 L (137-145) mmol/L Potassium 5.5 H (3.5-5.1) mmol/L Chloride 90 L (98-107) mmol/L Carbon Dioxide 24 (22-30) mmol/L Anion Gap 13 mmol/L BUN 44 H (9-20) mg/dL Creatinine 5.70 H* (0.66-1.25) mg/dL Est GFR (MDRD) Af Amer 13 (>60 ml/min/1.73 sqM) Est GFR (MDRD) Non-Af 11 (>60 ml/min/1.73 sqM) Glucose 864 H* (74-99) mg/dL POC Glucose (mg/dL) (75-99) mg/dL POC Glu Shoe Worker ID Calcium 8.7 (8.4-10.2) mg/dL Magnesium 2.2 (1.6-2.3) mg/dL Total Bilirubin 1.1 (0.2-1.3) mg/dL AST 14 L (17-59) U/L ALT 31 (21-72) U/L Alkaline Phosphatase 95 (38-126) U/L Total Protein 5.8 L (6.3-8.2) g/dL Albumin 4.1 (3.5-5.0) g/dL Acetone, Qual Positive (Negative) 07/07/16 Range/Units 01:12 WBC (3.8-10.6) k/uL RBC (4.30-5.90) m/uL Hgb (13.0-17.5) gm/dL Hct (39.0-53.0) % MCV (80.0-100.0) fL MCH (25.0-35.0) pg MCHC (31.0-37.0) g/dL RDW (11.5-15.5) % Plt Count (150-450) k/uL Neutrophils % % Lymphocytes % % Monocytes % % Eosinophils % % Basophils % % Neutrophils # (1.3-7.7) k/uL Lymphocytes # (1.0-4.8) k/uL Monocytes # (0-1.0) k/uL Eosinophils # (0-0.7) k/uL Basophils # (0-0.2) k/uL PT (9.0-12.0) sec INR (<1.1) APTT (22.0-30.0) sec Sodium (137-145) mmol/L Potassium (3.5-5.1) mmol/L Chloride (98-107) mmol/L Carbon Dioxide (22-30) mmol/L Anion Gap mmol/L BUN (9-20) mg/dL Creatinine (0.66-1.25) mg/dL Est GFR (MDRD) Af Amer (>60 ml/min/1.73 sqM) Est GFR (MDRD) Non-Af (>60 ml/min/1.73 sqM) Glucose (74-99) mg/dL POC Glucose (mg/dL) >600 H (75-99) mg/dL POC Glu Shoe Worker ID Mily Ortega Calcium (8.4-10.2) mg/dL Magnesium (1.6-2.3) mg/dL Total Bilirubin (0.2-1.3) mg/dL AST (17-59) U/L ALT (21-72) U/L Alkaline Phosphatase (38-126) U/L Total Protein (6.3-8.2) g/dL Albumin (3.5-5.0) g/dL Acetone, Qual (Negative) - Radiology Data CT brain shows a small amount of intraventricular hemorrhage seen at the bilateral occipital horns for example axial 24. Mildly larger appearing lateral and third ventricles may be due to early changes of hydrocephalus or interval central volume loss. No midline shift. Chronic involutional changes. (Michelle Stock) Disposition <Wilson Araujo - Last Filed: 07/07/16 02:23> Time of Disposition: 02:27 - Out of Hospital Transfer - Req. Specs Out of Hospital Transfer - Requested Specifics: Other Emergency Center ([facility]) <Michelle Stock - Last Filed: 07/07/16 02:27> Clinical Impression: Intracranial hemorrhage, DKA (diabetic ketoacidoses) Disposition: DISCH/TRANS TO A [facility] Condition: Stable Referrals: Teresa Golden MD [Primary Care Provider] - 1-2 days
[2016-07-07] MEDS ORDERED: MORPHINE SULFATE 4 MG/ML SYRINGE IVP STA (01:50)
[2016-07-07] MEDS ORDERED: LABETALOL 5 MG/ML VIAL MDV IVP STA (02:29)
[2016-07-07 02:45] VITALS: BP 172/92; PULSE 83
[2016-07-07 07:25] LABS: Glucose,Whole Blood >600 mg/dL (75-99)
== END 2016-07-07 02:54 ==
LOC: EC 23:05
DX: S06.9X0A Unspecified intracranial injury without loss of consciousness, initial encounter (principal); E13.10 Other specified diabetes mellitus with ketoacidosis without coma; I12.0 Hypertensive chronic kidney disease with stage 5 chronic kidney disease or end stage renal disease; N18.6 End stage renal disease; E78.5 Hyperlipidemia, unspecified; M19.90 Unspecified osteoarthritis, unspecified site; H54.8 Legal blindness, as defined in USA; F17.200 Nicotine dependence, unspecified, uncomplicated; Z86.69 Personal history of other diseases of the nervous system and sense organs; Z99.2 Dependence on renal dialysis; Z88.5 Allergy status to narcotic agent; Z79.4 Long term (current) use of insulin; Z79.891 Long term (current) use of opiate analgesic; Z79.899 Other long term (current) drug therapy; W19.XXXA Unspecified fall, initial encounter; Y92.009 Unspecified place in unspecified non-institutional (private) residence as the place of occurrence of the external cause
CPT/HCPCS: 99285; 96374; 96361 ×2; 36415 ×2; 80053; 82009; 83735; 85025; 85610; 85730; 70450; J0360

== ENCOUNTER 2016-07-30 20:43 | Inpatient (IN) | payer MEDICARE, OTHER ==
[2016-07-30] MEDS ORDERED: SODIUM CHLORIDE 0.9% 1,000 ML IV STA (20:45)
--- NOTE | 2016-07-30 20:51 | ED ---
CPR HPI - General Stated Complaint: Arrest Time Seen by Provider: 07/30/16 20:43 Source: EMS, RN notes reviewed, old records reviewed Mode of arrival: EMS - History of Present Illness Initial Comments: This is a 50-year-old male history of renal failure diabetes who apparently was eating a bologna sandwich when he aspirated. He became unresponsive and CPR was started by family members. EMS was called patient was down for about 5-7 minutes of CPR he was pulseless and abdomen during this time. Patient was intubated by paramedics. Efforts were continued a pulse and blood pressure were obtained. Patient remained unresponsive but was transported to the hospital for further evaluation. MD Complaint: collapsed during activity - Related Data Home Medications Medication Instructions Recorded Confirmed Insulin Detemir [Levemir] 10 unit SQ DAILY 09/07/14 04/04/16 hydrALAZINE HCL [Apresoline] 50 mg PO TID 09/07/14 04/04/16 Calcium Acetate [PhosLo] 1,334 mg PO AC-BID 11/09/15 04/04/16 Insulin Aspart [NovoLOG] See Protocol SQ ACHS 11/09/15 04/04/16 Prochlorperazine [Compazine] 10 mg PO Q6H PRN 11/09/15 04/04/16 amLODIPine [Norvasc] 10 mg PO DAILY 11/09/15 04/04/16 Ketoconazole 2% Shampoo [Nizoral] 1 applic TOPICAL Q4D PRN 04/04/16 04/04/16 oxyCODONE HCL 20 mg PO TID 04/04/16 04/04/16 Previous Rx's Medication Instructions Recorded Labetalol [Trandate] 400 mg PO BID 30 Days 08/20/13 Levofloxacin [Levaquin] 500 mg PO Q48H #3 tab 04/07/16 Tamsulosin [Flomax] 0.4 mg PO DAILY #30 cap 04/07/16 Allergies Allergy/AdvReac Type Severity Reaction Status Date / Time codeine AdvReac Mild Itching Verified 07/30/16 20:55 Review of Systems ROS Statement: Those systems with pertinent positive or pertinent negative responses have been documented in the HPI. ROS Other: All systems not noted in ROS Statement are negative. Limitations: ROS unobtainable due to patients medical condition Past Medical History Past Medical History: Diabetes Mellitus, GERD/Reflux, Hyperlipidemia, Hypertension, Osteoarthritis (OA), Prostate Disorder, Renal Disease Additional Past Medical History / Comment(s): ESRD on hemodialysis and AV fistula in left arm; gastroparesis with gastritis; diabetic retinopathy with legal blindness; R eye glaucoma, non ishchemic cardiomyopathy; recurrent pericarditis; chronic back pain, diabetic neuropathy, chronic low back pain, metabolic encephalopathy, hyperosmolar nonketotic, neck fracture and neck pain, stated fell and fx vertebra in back. hyperglycemia,. left arm fistula. History of Any Multi-Drug Resistant Organisms: MRSA Date of last positivie culture/infection: 11/04/13 MDRO Source:: Blood Additional Past Surgical History / Comment(s): Eye surgery, colonoscopy, egd, av fistula left arm, R port removal due to infection-MRSA in port and blood. Past Anesthesia/Blood Transfusion Reactions: No Reported Reaction Past Psychological History: No Psychological Hx Reported, Anxiety Additional Psychological History / Comment(s): SPOKE WITH PT'S PUBLIC LEGAL GUARDIAN CATE-AT TIME OF THIS ADMIT PT IS A FULL CODE .SHE STATED IF PT BECOMES MORE ALERT AND ORIENTATED AND WISHES LATER TO CHANGE CODE STATUS-GIVE HER A CALL AT [phone]. HE STATED THAT SINCE 2014 HE HAD [facility] LIVING AT [facility] AND OF THURSDAY MOVED INTO [facility] APT(PT WAS CONFUSED ABOUT THIS WHEN ASKED) Pt has a cane which he uses most of the time. He has a walker when he feels he needs it- pt stated he has been for 25 years but aprt because he was at [facility] since 2014 Smoking Status: Current every day smoker Past Alcohol Use History: None Reported Additional Past Alcohol Use History / Comment(s): Pt is quitting smoking - he is down to a pack a week-WHICH IS DOWN FROM 2-3 PPD He started smoking about 35 yrs ago. Past Drug Use History: Marijuana Additional Drug Use History / Comment(s): Pt will use marijuana if he is having a painful day or if B/P is elevated. He does not use on a daily basis. - Past Family History Mother Family Medical History: Hypertension Father Family Medical History: Cancer Additional Family Medical History / Comment(s): Father has prostate cancer. He is 75 yrs old and very active. Daughter(s) Family Medical History: No Reported History Course Vital Signs 07/30/16 07/30/16 07/30/16 20:44 20:52 21:01 Temperature 94.7 F L Pulse Rate 48 L 77 77 Respiratory 16 16 16 Rate Blood Pressure 169/87 160/84 155/86 O2 Sat by Pulse 100 100 100 Oximetry 07/30/16 07/30/16 07/30/16 21:06 21:11 21:16 Temperature 93.2 F L Pulse Rate 77 76 80 Respiratory 16 16 16 Rate Blood Pressure 155/87 153/87 163/92 O2 Sat by Pulse 99 100 100 Oximetry 07/30/16 07/30/16 07/30/16 21:21 21:32 22:08 Temperature 94.0 F L Pulse Rate 80 79 73 Respiratory 16 16 14 Rate Blood Pressure 157/91 158/90 134/75 O2 Sat by Pulse 100 100 100 Oximetry - Reevaluation(s) Reevaluation #1: 07/30/16 22:11 Patient does show some evidence of posturing. The initial x-ray showed evidence of aspiration the ET tube was withdrawn slightly. Procedures - Restraint - Face to Face Restraint Occurrence 1 Patient's Immediate Situation: Endangers self safety Patient's Reaction to the Intervention: Restless Patient's Medical & Behavioral Condition: Other (see comment) (Postarrest obtunded) Need to Continue or Terminate Restraint or Seclusion: Continue Face to Face Eval of Restraint Date: 07/30/16 Face to Face Eval of Restraint Time: 21:30 Medical Decision Making - Medical Decision Making I did discuss case with Dr. Golden and with Dr. Woods. Initially admitted to ICU - Lab Data Result diagrams: 07/30/16 20:56 07/30/16 20:56 Lab Results 07/30/16 07/30/16 07/30/16 Range/Units 20:56 20:56 20:56 WBC 3.6 L (3.8-10.6) k/uL RBC 2.74 L (4.30-5.90) m/uL Hgb 8.7 L D (13.0-17.5) gm/dL Hct 26.2 L (39.0-53.0) % MCV 95.3 (80.0-100.0) fL MCH 31.8 (25.0-35.0) pg MCHC 33.3 (31.0-37.0) g/dL RDW 15.5 (11.5-15.5) % Plt Count 153 (150-450) k/uL Neutrophils % (Manual) 57.0 % Lymphocytes % (Manual) 29.0 % Monocytes % (Manual) 6.0 % Eosinophils % (Manual) 8.0 % Neutrophils # (Manual) 2.1 (1.3-7.7) k/uL Lymphocytes # (Manual) 1.0 (1.0-4.8) k/uL Monocytes # (Manual) 0.2 (0-1.0) k/uL Eosinophils # (Manual) 0.3 (0-0.7) k/uL Nucleated RBCs 0 (0-0) /100 WBC Polychromasia Present PT (9.0-12.0) sec INR (<1.1) APTT (22.0-30.0) sec Sample Site ABG pH (7.35-7.45) ABG pCO2 (35-45) mmHg ABG pO2 (83-108) mmHg ABG HCO3 (21-25) mmol/L ABG Total CO2 (19-24) mmol/L ABG O2 Saturation (94-97) % ABG Base Excess mmol/L FiO2 % Sodium 134 L (137-145) mmol/L Potassium 5.5 H (3.5-5.1) mmol/L Chloride 97 L (98-107) mmol/L Carbon Dioxide 21 L (22-30) mmol/L Anion Gap 16 mmol/L BUN 59 H (9-20) mg/dL Creatinine 4.85 H (0.66-1.25) mg/dL Est GFR (MDRD) Af Amer 15 (>60 ml/min/1.73 sqM) Est GFR (MDRD) Non-Af 13 (>60 ml/min/1.73 sqM) Glucose 484 H* (74-99) mg/dL Calcium 8.3 L (8.4-10.2) mg/dL Magnesium 2.2 (1.6-2.3) mg/dL Total Bilirubin 1.0 (0.2-1.3) mg/dL AST 30 (17-59) U/L ALT 32 (21-72) U/L Alkaline Phosphatase 89 (38-126) U/L Total Creatine Kinase 129 (55-170) U/L CK-MB (CK-2) 2.8 H* (0.0-2.4) ng/mL CK-MB (CK-2) Rel Index 2.2 Troponin I 0.173 H* (0.000-0.034) ng/mL NT-Pro-B Natriuret Pep pg/mL Total Protein 5.7 L (6.3-8.2) g/dL Albumin 3.9 (3.5-5.0) g/dL Urine Color Urine Appearance (Clear) Urine pH (5.0-8.0) Ur Specific Sunbright (1.001-1.035) Urine Protein (Negative) Urine Glucose (UA) (Negative) Urine Ketones (Negative) Urine Blood (Negative) Urine Nitrite (Negative) Urine Bilirubin (Negative) Urine Urobilinogen (<2.0) mg/dL Ur Leukocyte Esterase (Negative) Urine RBC (0-5) /hpf Urine WBC (0-5) /hpf Urine Bacteria (None) /hpf Urine Sperm (None) /hpf Urine Opiates Screen (NotDetected) Ur Oxycodone Screen (NotDetected) Urine Methadone Screen (NotDetected) Ur Propoxyphene Screen (NotDetected) Ur Barbiturates Screen (NotDetected) U Tricyclic Antidepress (NotDetected) Ur Phencyclidine Scrn (NotDetected) Ur Amphetamines Screen (NotDetected) U Methamphetamines Scrn (NotDetected) U Benzodiazepines Scrn (NotDetected) Urine Cocaine Screen (NotDetected) U Marijuana (THC) Screen (NotDetected) Acetone, Qual (Negative) 07/30/16 07/30/16 07/30/16 Range/Units 20:56 20:56 20:56 WBC (3.8-10.6) k/uL RBC (4.30-5.90) m/uL Hgb (13.0-17.5) gm/dL Hct (39.0-53.0) % MCV (80.0-100.0) fL MCH (25.0-35.0) pg MCHC (31.0-37.0) g/dL RDW (11.5-15.5) % Plt Count (150-450) k/uL Neutrophils % (Manual) % Lymphocytes % (Manual) % Monocytes % (Manual) % Eosinophils % (Manual) % Neutrophils # (Manual) (1.3-7.7) k/uL Lymphocytes # (Manual) (1.0-4.8) k/uL Monocytes # (Manual) (0-1.0) k/uL Eosinophils # (Manual) (0-0.7) k/uL Nucleated RBCs (0-0) /100 WBC Polychromasia PT 10.8 (9.0-12.0) sec INR 1.1 (<1.1) APTT 22.6 (22.0-30.0) sec Sample Site ABG pH (7.35-7.45) ABG pCO2 (35-45) mmHg ABG pO2 (83-108) mmHg ABG HCO3 (21-25) mmol/L ABG Total CO2 (19-24) mmol/L ABG O2 Saturation (94-97) % ABG Base Excess mmol/L FiO2 % Sodium (137-145) mmol/L Potassium (3.5-5.1) mmol/L Chloride (98-107) mmol/L Carbon Dioxide (22-30) mmol/L Anion Gap mmol/L BUN (9-20) mg/dL Creatinine (0.66-1.25) mg/dL Est GFR (MDRD) Af Amer (>60 ml/min/1.73 sqM) Est GFR (MDRD) Non-Af (>60 ml/min/1.73 sqM) Glucose (74-99) mg/dL Calcium (8.4-10.2) mg/dL Magnesium (1.6-2.3) mg/dL Total Bilirubin (0.2-1.3) mg/dL AST (17-59) U/L ALT (21-72) U/L Alkaline Phosphatase (38-126) U/L Total Creatine Kinase (55-170) U/L CK-MB (CK-2) (0.0-2.4) ng/mL CK-MB (CK-2) Rel Index Troponin I (0.000-0.034) ng/mL NT-Pro-B Natriuret Pep 94885 pg/mL Total Protein (6.3-8.2) g/dL Albumin (3.5-5.0) g/dL Urine Color Yellow Urine Appearance Clear (Clear) Urine pH 8.0 (5.0-8.0) Ur Specific Sunbright 1.008 (1.001-1.035) Urine Protein 2+ H (Negative) Urine Glucose (UA) 4+ H (Negative) Urine Ketones Negative (Negative) Urine Blood Negative (Negative) Urine Nitrite Negative (Negative) Urine Bilirubin Negative (Negative) Urine Urobilinogen <2.0 (<2.0) mg/dL Ur Leukocyte Esterase Negative (Negative) Urine RBC 1 (0-5) /hpf Urine WBC <1 (0-5) /hpf Urine Bacteria Rare H (None) /hpf Urine Sperm Rare (None) /hpf Urine Opiates Screen Detected H (NotDetected) Ur Oxycodone Screen Not Detected (NotDetected) Urine Methadone Screen Not Detected (NotDetected) Ur Propoxyphene Screen Not Detected (NotDetected) Ur Barbiturates Screen Not Detected (NotDetected) U Tricyclic Antidepress Not Detected (NotDetected) Ur Phencyclidine Scrn Not Detected (NotDetected) Ur Amphetamines Screen Not Detected (NotDetected) U Methamphetamines Scrn Not Detected (NotDetected) U Benzodiazepines Scrn Detected H (NotDetected) Urine Cocaine Screen Not Detected (NotDetected) U Marijuana (THC) Screen Not Detected (NotDetected) Acetone, Qual (Negative) 07/30/16 07/30/16 Range/Units 20:56 21:28 WBC (3.8-10.6) k/uL RBC (4.30-5.90) m/uL Hgb (13.0-17.5) gm/dL Hct (39.0-53.0) % MCV (80.0-100.0) fL MCH (25.0-35.0) pg MCHC (31.0-37.0) g/dL RDW (11.5-15.5) % Plt Count (150-450) k/uL Neutrophils % (Manual) % Lymphocytes % (Manual) % Monocytes % (Manual) % Eosinophils % (Manual) % Neutrophils # (Manual) (1.3-7.7) k/uL Lymphocytes # (Manual) (1.0-4.8) k/uL Monocytes # (Manual) (0-1.0) k/uL Eosinophils # (Manual) (0-0.7) k/uL Nucleated RBCs (0-0) /100 WBC Polychromasia PT (9.0-12.0) sec INR (<1.1) APTT (22.0-30.0) sec Sample Site r rad ABG pH 7.36 (7.35-7.45) ABG pCO2 42 (35-45) mmHg ABG pO2 83 (83-108) mmHg ABG HCO3 24 (21-25) mmol/L ABG Total CO2 25 H (19-24) mmol/L ABG O2 Saturation 96.0 (94-97) % ABG Base Excess -1.1 mmol/L FiO2 100 % Sodium (137-145) mmol/L Potassium (3.5-5.1) mmol/L Chloride (98-107) mmol/L Carbon Dioxide (22-30) mmol/L Anion Gap mmol/L BUN (9-20) mg/dL Creatinine (0.66-1.25) mg/dL Est GFR (MDRD) Af Amer (>60 ml/min/1.73 sqM) Est GFR (MDRD) Non-Af (>60 ml/min/1.73 sqM) Glucose (74-99) mg/dL Calcium (8.4-10.2) mg/dL Magnesium (1.6-2.3) mg/dL Total Bilirubin (0.2-1.3) mg/dL AST (17-59) U/L ALT (21-72) U/L Alkaline Phosphatase (38-126) U/L Total Creatine Kinase (55-170) U/L CK-MB (CK-2) (0.0-2.4) ng/mL CK-MB (CK-2) Rel Index Troponin I (0.000-0.034) ng/mL NT-Pro-B Natriuret Pep pg/mL Total Protein (6.3-8.2) g/dL Albumin (3.5-5.0) g/dL Urine Color Urine Appearance (Clear) Urine pH (5.0-8.0) Ur Specific Sunbright (1.001-1.035) Urine Protein (Negative) Urine Glucose (UA) (Negative) Urine Ketones (Negative) Urine Blood (Negative) Urine Nitrite (Negative) Urine Bilirubin (Negative) Urine Urobilinogen (<2.0) mg/dL Ur Leukocyte Esterase (Negative) Urine RBC (0-5) /hpf Urine WBC (0-5) /hpf Urine Bacteria (None) /hpf Urine Sperm (None) /hpf Urine Opiates Screen (NotDetected) Ur Oxycodone Screen (NotDetected) Urine Methadone Screen (NotDetected) Ur Propoxyphene Screen (NotDetected) Ur Barbiturates Screen (NotDetected) U Tricyclic Antidepress (NotDetected) Ur Phencyclidine Scrn (NotDetected) Ur Amphetamines Screen (NotDetected) U Methamphetamines Scrn (NotDetected) U Benzodiazepines Scrn (NotDetected) Urine Cocaine Screen (NotDetected) U Marijuana (THC) Screen (NotDetected) Acetone, Qual Negative (Negative) - EKG Data -: EKG Interpreted by Ri EKG shows normal: sinus rhythm (Sinus rhythm rate 77 appear of 22 QRS 100 QT/ QTC of 442/[address]-t wave changes.) - Radiology Data Radiology results: image reviewed Critical Care Time Critical Care Time: Yes Critical Care Time: 53 minutes of critical care time which includes monitoring initially a bolus call and discussed with paramedics. Assessment of the patient with history physical labs and x-ray review of old charting. Multiple re-evaluations the patient response to therapy. Discussion with the admitting physician and with the trouble clerk. Admission orders. Documentation of the above. Disposition Clinical Impression: Acute respiratory failure, Cardiac arrest, Aspiration pneumonia due to food ( regurgitated), Chronic renal failure, Cerebral anoxia, Coma, Hyperglycemia due to type 1 diabetes mellitus Disposition: ADMITTED IP TO THIS HOSP Condition: Critical Referrals: Teresa Golden MD [Primary Care Provider] - 1-2 days
[2016-07-30] MEDS ORDERED: PROPOFOL 500 MG in EMPTY BAG 1 BAG IV ONE (21:03)
--- NOTE | 2016-07-30 21:07 | XR ---
EXAMINATION TYPE: XR chest 1V portable DATE OF EXAM: 07/30/2016 HISTORY: Shortness of breath. COMPARISON: 05/11/2016 TECHNIQUE: Single view of the chest is submitted. FINDINGS: Endotracheal tube is approximately 2.8 cm from the claudy. NG tube is seen coursing into the stomach. Large area of airspace consolidation left upper lobe and left perihilar region as well as the right p erihilar region are new findings. The heart does not appear to be enlarged at this time. IMPRESSION: 1. Endotracheal and NG tubes are well placed. 2. Areas of airspace consolidation as discussed above may reflect pneumonia or aspiration pneumonia. Infiltrates of other etiology not excluded.
[2016-07-30 21:14] LABS: Appearance,Urine Clear (Clear); Bacteria,Urine Rare /hpf; Bilirubin,Urine Negative (Negative); Glucose,Urine (UA) 4+ (Negative); Ketones,Urine Negative (Negative); Leukocyte Esterase,Urine Negative (Negative); Nitrite,Urine Negative (Negative); Particle Count 373; Protein,Urine 2+ (Negative); RBC,Urine 1 /hpf (0-5); Specific Gravity,Urine 1.008 (1.001-1.035); Sperm,Urine Rare /hpf; UA Billing (MACRO vs. MICRO) MICRO; Urobilinogen,Urine <2.0 mg/dL (<2.0); WBC,Urine <1 /hpf (0-5)
[2016-07-30 21:17] LABS: Aty Lym Flag Slight; CH 32.1; CHCM 33.8; HCT 26.2 % (39.0-53.0); HDW 2.93; MCH 31.8 pg (25.0-35.0); MCHC 33.3 g/dL (31.0-37.0); MCV 95.3 fL (80.0-100.0); RBC 2.74 m/uL (4.30-5.90); RDW 15.5 % (11.5-15.5); WBC 3.6 k/uL (3.8-10.6); WBC (Perox) 3.55
[2016-07-30 21:19] LABS: HGB 8.7 gm/dL (13.0-17.5)
[2016-07-30 21:20] LABS: Calcium 8.3 mg/dL (8.4-10.2); Magnesium 2.2 mg/dL (1.6-2.3); Potassium 5.5 mmol/L (3.5-5.1); Total Protein 5.7 g/dL (6.3-8.2)
[2016-07-30 21:21] LABS: INR 1.1 (<1.1); Partial Thromboplastin Time 22.6 sec (22.0-30.0); Prothrombin Time 10.8 sec (9.0-12.0)
[2016-07-30 21:29] LABS: Add Differential Manual Differential
[2016-07-30 21:31] LABS: Nucleated Red Blood Cells 0 /100 WBC (0-0); Polychromasia Present; Total Cells Counted 100
[2016-07-30 21:55] LABS: Creatine Kinase MB 2.8 ng/mL (0.0-2.4); Troponin I 0.173 ng/mL (0.000-0.034)
[2016-07-30 22:09] LABS: ABG Base Excess -1.1 mmol/L; ABG HCO3 24 mmol/L (21-25); ABG PCO2 42 mmHg (35-45); ABG PH 7.36 (7.35-7.45); ABG PO2 83 mmHg (83-108); ABG TCO2 25 mmol/L (19-24)
[2016-07-30] MEDS ORDERED: NALOXONE 0.4 MG/ML 1 ML VIAL IV PRN (22:17)
[2016-07-30] MEDS ORDERED: LEVOFLOXACIN 750MG-D5W PMX 750 MG in DEXTROSE/WATER 1 150ML.BAG IVPB STA (22:22)
[2016-07-30] MEDS ORDERED: PIPERACILLIN-TAZOBACTAM 3.375 GM in DEXTROSE/WATER 1 50ML.BAG IVPB STA (22:22)
[2016-07-30] MEDS ORDERED: INSULIN REGULAR 100 UNIT/ML VIAL IV ONE (22:25)
--- NOTE | 2016-07-30 22:34 | CT ---
EXAM: CT Head Without Intravenous Contrast CLINICAL HISTORY: Reason: Pain TECHNIQUE: Axial computed tomography images of the head/brain without intravenous contrast. CTDI is 57.4 mGy and DLP is 1116 mGy-cm. This CT exam was performed using one or more of the following dose reduction techniques: automated exposure control, adjustment of the mA and/or kV according to patient size, and/or use of iterative reconstruction technique. Coronal and sagittal reformatted images were created and reviewed. COMPARISON: CT 07/07/16 FINDINGS: Brain: Severe white matter hypodensities suggestive chronic small vessel ischemic change. Global volume loss. 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 No evolving territorial infarction. No hemorrhage. Ventricles: Unremarkable. No ventriculomegaly. Bones/joints: Unremarkable. No acute fracture. Soft tissues: Unremarkable. Vasculature: Extensive atherosclerosis of the carotid siphons. Sinuses: Fluid level within the right maxillary sinus, correlate for acute sinusitis. Mild opacification of the ethmoid air cells. Mastoid air cells: Unremarkable as visualized. No mastoid effusion. IMPRESSION: 1. Severe white matter hypodensities suggestive chronic small vessel ischemic change. Global volume loss. 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 No evolving territorial infarction. 2. Fluid level within the right maxillary sinus, correlate for acute sinusitis.
[2016-07-30] MEDS: IPRATROPIUM-ALBUTEROL 3 ML NEB INHALATION SCH (22:54)
[2016-07-30 23:12] LABS: Glucose,Whole Blood 488 mg/dL (75-99)
[2016-07-31 00:27] LABS: Glucose,Whole Blood 424 mg/dL (75-99)
[2016-07-31] MEDS: SODIUM CHLORIDE 0.9% 1,000 ML IV SCH ×2 (00:59→12:17)
[2016-07-31] MEDS: PROPOFOL 500 MG in EMPTY BAG 1 BAG IV SCH ×2 (02:36→05:57)
[2016-07-31] MEDS: IPRATROPIUM-ALBUTEROL 3 ML NEB INHALATION SCH ×5 (03:35→20:26)
[2016-07-31 05:35] LABS: ABG Base Excess -3.3 mmol/L; ABG HCO3 21 mmol/L (21-25); ABG PCO2 37 mmHg (35-45); ABG PH 7.38 (7.35-7.45); ABG PO2 104 mmHg (83-108); ABG TCO2 22 mmol/L (19-24)
[2016-07-31 05:49] LABS: Basophils % (A) 1 %; CH 31.7; CHCM 32.2; Eosinophils # (A) 0.2 k/uL (0-0.7); Eosinophils % (A) 3 %; HCT 27.3 % (39.0-53.0); HDW 2.72; HGB 8.6 gm/dL (13.0-17.5); Luc # (Auto) 0.08; Luc % (Auto) 2; Lymphocytes # (A) 0.3 k/uL (1.0-4.8); Lymphocytes % (A) 6 %; MCH 31.3 pg (25.0-35.0); MCHC 31.6 g/dL (31.0-37.0); Macrocytosis Slight; Mean Platelet Volume 7.5; Monocytes # (A) 0.3 k/uL (0-1.0); Monocytes % (A) 5 %; Neutrophils # (A) 4.4 k/uL (1.3-7.7); Neutrophils % (A) 84 %; RBC 2.76 m/uL (4.30-5.90); RDW 15.7 % (11.5-15.5); WBC 5.2 k/uL (3.8-10.6); WBC (Perox) 5.31
[2016-07-31 06:05] LABS: Calcium 8.3 mg/dL (8.4-10.2); Magnesium 2.1 mg/dL (1.6-2.3); Phosphorous 5.1 mg/dL (2.5-4.5); Potassium 4.9 mmol/L (3.5-5.1); Total Protein 5.6 g/dL (6.3-8.2)
[2016-07-31 07:00] LABS: Glucose,Whole Blood 320 mg/dL (75-99)
[2016-07-31] MEDS ORDERED: INSULIN LISPRO (humaLOG) 300 UNIT/3 ML VIAL SQ SCH (07:30)
--- NOTE | 2016-07-31 07:35 | XR ---
EXAMINATION TYPE: XR chest 1V DATE OF EXAM: 07/31/2016 HISTORY: Aspiration. REFERENCE: Previous study dated 07/30/2016. FINDINGS: The patient is ET tube and NG tube remain in place, unchanged in appearance. Defibrillator pads project over the right hemithorax. There is a worsening left effusion. There is worsening left basilar airspace disease. Aeration to the left upper lobe has improved. The heart is upper limits of normal in size. IMPRESSION: 1. IMPROVED AERATION, LEFT UPPER LOBE. 2. WORSENING AIRSPACE DISEASE, LEFT LOWER LOBE. 3. WORSENING LEFT EFFUSION.
[2016-07-31] MEDS ORDERED: PIPERACILLIN-TAZOBACTAM 3.375 GM in DEXTROSE/WATER 1 50ML.BAG IVPB SCH (08:00)
[2016-07-31 08:43] LABS: Glucose,Whole Blood 337 mg/dL (75-99)
[2016-07-31] MEDS: INSULIN LISPRO (humaLOG) 300 UNIT/3 ML VIAL SQ SCH ×3 (08:48→19:32)
[2016-07-31] MEDS: HEPARIN SODIUM,PORCINE 5,000 UNIT/ML 1 ML VIAL SQ SCH ×2 (08:51→17:18)
[2016-07-31] MEDS ORDERED: LABETALOL 200 MG TAB PO SCH (09:00)
[2016-07-31] MEDS ORDERED: amLODIPine 10 MG TAB PO SCH (09:00)
[2016-07-31] MEDS: hydrALAZINE HCL 50 MG TAB PO SCH ×2 (09:06→17:17)
[2016-07-31] MEDS: CHLORHEXIDINE GLUCONATE 15 ML CUP MUCOUS MEM SCH ×2 (09:07→19:33)
[2016-07-31 09:23] LABS: Hemoglobin A1C 11.1 % (4.2-6.1)
[2016-07-31 11:55] LABS: ABG HCO3 22 mmol/L (21-25); ABG PCO2 32 mmHg (35-45); ABG PH 7.45 (7.35-7.45); ABG PO2 64 mmHg (83-108); ABG TCO2 23 mmol/L (19-24)
[2016-07-31 11:56] LABS: ABG Base Excess -1.3 mmol/L; ABG Oxygen Saturation 93.5 % (94-97)
[2016-07-31] MEDS: PANTOPRAZOLE 40 MG/10 ML VIAL IV SCH ×2 (12:07→21:01)
[2016-07-31 12:10] LABS: Glucose,Whole Blood 217 mg/dL (75-99)
[2016-07-31] MEDS: INSULIN DETEMIR 100 UNIT/ML 10 ML VIAL SQ SCH (12:15)
--- NOTE | 2016-07-31 12:52 | CONS ---
DATE OF CONSULTATION: A 50-year-old male with a history of renal failure, diabetes. The patient apparently was eating a bologna sandwich and aspirated. He became unresponsive and CPR was started by the family members. Apparently, CPR continued for about 5 to 7 minutes. EMS arrived. The patient was brought to the ER where he was further evaluated and treated and resuscitated. He was apparently intubated in the field by EMS. It is not clear how long CPR went on for. The patient was transferred to the ICU. The patient is currently on the ventilator. We held his propofol, we are seeing whether or not he will wake up and he whether or not he might be a candidate for weaning and extubation. Hence, we are giving him a spontaneous breathing trial. The patient is currently off of sedation but is not really responding appropriately. Currently, he is on Diprivan which has been held. He is on a normal saline IV at 80 mL an hour. His vent settings include the assist control mode rate of 14, tidal volume 500, FiO2 of 50%, PEEP of 5. Blood gases show pO2 of 104, pCO2 of 37, pH of 7.38. Current home medications include insulin, hydralazine, PhosLo, NovoLog, insulin, Compazine, Norvasc, Nizoral shampoo, oxycodone, labetalol, levofloxacin and Flomax. Allergies are CODEINE. Medical history includes diabetes, GERD, hyperlipidemia, hypertension, osteoarthritis, chronic kidney disease currently on hemodialysis, diabetic retinopathy, diabetic neuropathy, chronic low back pain, cardiomyopathy, recurrent pericarditis. Surgical history includes, among other things, AV fistula on his left arm, eye surgery, colonoscopy, EGD, port removal secondary to MRSA infection and other surgical procedures as noted. Social history is positive for ongoing tobacco use. Alcohol is apparently denied. No apparent illicit drug use, although he apparently has a history of marijuana use in the past. Family history is positive for hypertension and cancer. Review of systems cannot be obtained as the patient is currently on the mechanical breathing machine. Currently, vital signs include temperature 98.9, a heart rate of 90, respiratory rate 15, blood pressure 181/93, mean 122, saturations is 99% on 50% FiO2 and 5 of PEEP. Apparently, appears in no acute distress. Really not waking up at this point though the patient's Diprivan was turned off a while back. HEENT examination is grossly unremarkable. Mucous membranes are moist. Orally placed endotracheal tube and NG tube was noted. Neck is supple. No adenopathy or thyromegaly. Neck veins are not distended. Cardiovascular examination reveals regular rhythm and rate. Heart rate in the 90s. S1, S2 normal. No clear-cut murmur. No rub. No S3, S4. Lungs reveal a few scattered coarse rhonchi. Breath sounds are diminished. No crackles or wheezes. Abdomen is soft. Bowel sounds are diminished. Extremities are intact. No cyanosis, clubbing. Slight edema. Skin without rash. Neurologic examination cannot be performed. As mentioned earlier, he was on the Diprivan which is currently on hold and 0.9 IV at 80 mL an hour. Chest x-ray shows a consolidated process in the left lower lobe, possibly where the patient aspirated a bologna sandwich. Labs are reviewed. White count 5.2, hemoglobin 8.6, hematocrit 27.3, platelet count 156,000. Sodium 134, potassium 4.9, chloride is 100, CO2 is 19. Anion gap is 15, BUN and creatinine were 62 and 5.06. These electrolytes are consistent with an anion gap metabolic acidosis consistent with the patient's history of renal failure. The patient's hemoglobin A1c was 11.1 suggesting poor diabetes control. Calcium 8.3, phosphorus 5.1, total protein 5.6. Chest x-ray is reviewed. Microbiology is thus far negative, that includes a sputum sample. Medications will be reviewed. ASSESSMENT: 1. Hypoxemic respiratory failure with aspiration cardiopulmonary arrest, status post cardiopulmonary resuscitation with return of spontaneous circulation. 2. History of end-stage renal disease, currently on 3 time a week hemodialysis. 3. History of diabetes with diabetic end organ involvement. 4. Gastroesophageal reflux disease. 5. History of essential hypertension. 6. Hyperlipidemia. 7. Degenerative joint disease. 8. Legal blindness secondary to diabetic retinopathy. 9. Diabetic neuropathy. 10. Previous methicillin-resistant Staphylococcus aureus infection with removal of a port. 11. Multiple other medical problems and comorbidities as listed in the note as produced by the ER physician. PLAN: His overall prognosis is very poor. The patient does not appear to be waking up after the holding of the Diprivan. Will continue to monitor closely. His medications will be reviewed. He should be on updrafts q.4h. around the clock. He is currently on antibiotics. Chest x-ray is reviewed. He may benefit from bronchoscopy down the road. Additional recommendations and suggestions are forthcoming. He is currently not requiring any pressors. Again hoping that the patient's neurologic status improves so that we can work towards a spontaneous breathing trial and possible extubation. Again, prognosis is very guarded.
--- NOTE | 2016-07-31 14:01 | CONS ---
DATE OF CONSULTATION: CHIEF COMPLAINT: Cardiac arrest. This is a 50-year-old gentleman who came to the hospital following a respiratory arrest. Patient was eating a sandwich and aspirated, became unresponsive and hence had CPR for the same. He is intubated on vent and this morning, he is in the ICU and Cardiology had been consulted because of the cardiorespiratory arrest. At the time of my evaluation, he is intubated on vent, oxygenating well and is sedated. He is allergic to CODEINE. Past medical history is significant for diabetes, GERD, dyslipidemia, hypertension, chronic renal failure on hemodialysis, diabetic retinopathy, chronic back pain, cardiomyopathy, and recurrent pancreatitis. Family history is significant for hypertension and cancer. SOCIAL HISTORY: Significant for smoking. There is no history of EtOH abuse. REVIEW OF SYSTEMS: I am unable to obtain from the patient who is intubated, but pertinent information had been obtained by reviewing the chart. On exam, heart rate is 90 beats per minute, blood pressure is 179/80, respiratory rate is 18. Chest exam reveals diminished air entry at the bases. Heart exam reveals first and second heart sounds. No gallop. Exam of the extremities did not reveal any edema. Peripheral pulses are felt. Labs have been reviewed. Hemoglobin is 8.6, BUN is 62. Creatinine is 5. Potassium is 4.9. EKG shows sinus rhythm. ASSESSMENT: 1. Status post respiratory arrest secondary to aspiration. 2. History of renal failure, on hemodialysis. PLAN: I will obtain a 2-D echo to assess his LV function. Prognosis is guarded. Continue with supportive care.
--- NOTE | 2016-07-31 14:58 | P.HPIM ---
History of Present Illness H&P Date: 07/30/16 Chief Complaint: VDRF due to aspiration pneumonia and cardiac arrest. This is a 50-year-old male with a previous medical history significant for hypertension and hypertensive cardiovascular disease, hyperlipidemia, diabetes mellitus type 1, end-stage renal disease on hemodialysis, patient has not been under my care for the past 2 years apparently he was at medical [place] [facility] [place] and apparently was released from there after he was assigned a public guardian currently lives in a [facility] area with his , apparently patient was just released from [facility] few days ago after he was admitted to [facility] due to Intraventricular hemorrhage of both occipital horns and was seen at [facility] then. Patient apparently was eating a Bologna sandwich at home when he chocked on on it and he became unresponsive and went into cardiac and respiratory arrest that was witnessed for 5-7 mins and CPR was staerted and he was intubated on the scene and was transported to the ER at [facility] and had Ct scan that showed ischemic changes without IVH or intracranial bleed, CXR showed aspiration pneumonia, not sure if patient went for dialysis today and patient will be seen by Pulmonary . Review of Systems ROS unobtainable: due to endotracheal tube, due to mental status Past Medical History Past Medical History: Diabetes Mellitus, GERD/Reflux, Hyperlipidemia, Hypertension, Osteoarthritis (OA), Prostate Disorder, Renal Disease Additional Past Medical History / Comment(s): ESRD on hemodialysis and AV fistula in left arm; gastroparesis with gastritis; diabetic retinopathy with legal blindness; R eye glaucoma, non ishchemic cardiomyopathy; recurrent pericarditis; chronic back pain, diabetic neuropathy, chronic low back pain, metabolic encephalopathy, hyperosmolar nonketotic, neck fracture and neck pain, stated fell and fx vertebra in back. hyperglycemia,. left arm fistula. History of Any Multi-Drug Resistant Organisms: MRSA Date of last positivie culture/infection: 11/04/13 MDRO Source:: Blood Additional Past Surgical History / Comment(s): Eye surgery, colonoscopy, egd, av fistula left arm, R port removal due to infection-MRSA in port and blood. Past Anesthesia/Blood Transfusion Reactions: No Reported Reaction Past Psychological History: No Psychological Hx Reported, Anxiety Additional Psychological History / Comment(s): SPOKE WITH PT'S PUBLIC LEGAL GUARDIAN CATE-AT TIME OF THIS ADMIT PT IS A FULL CODE .SHE STATED IF PT BECOMES MORE ALERT AND ORIENTATED AND WISHES LATER TO CHANGE CODE STATUS-GIVE HER A CALL AT [phone]. HE STATED THAT SINCE 2014 HE HAD [facility] LIVING AT [facility] AND OF THURSDAY MOVED INTO [facility]DEP[facility] LIVING APT(PT WAS CONFUSED ABOUT THIS WHEN ASKED) Pt has a cane which he uses most of the time. He has a walker when he feels he needs it- pt stated he has been for 25 years but aprt because he was at [facility] since 2014 Smoking Status: Current every day smoker Past Alcohol Use History: None Reported Additional Past Alcohol Use History / Comment(s): Pt is quitting smoking - he is down to a pack a week-WHICH IS DOWN FROM 2-3 PPD He started smoking about 35 yrs ago. Past Drug Use History: Marijuana Additional Drug Use History / Comment(s): Pt will use marijuana if he is having a painful day or if B/P is elevated. He does not use on a daily basis. - Past Family History Mother Family Medical History: Hypertension Father Family Medical History: Cancer Additional Family Medical History / Comment(s): Father has prostate cancer. He is 75 yrs old and very active. Daughter(s) Family Medical History: No Reported History Medications and Allergies Home Medications Medication Instructions Recorded Confirmed Type Insulin Detemir [Levemir] 10 unit SQ DAILY 09/07/14 04/04/16 History hydrALAZINE HCL [Apresoline] 50 mg PO TID 09/07/14 04/04/16 History Calcium Acetate [PhosLo] 1,334 mg PO AC-BID 11/09/15 04/04/16 History Insulin Aspart [NovoLOG] See Protocol SQ ACHS 11/09/15 04/04/16 History Prochlorperazine [Compazine] 10 mg PO Q6H PRN 11/09/15 04/04/16 History amLODIPine [Norvasc] 10 mg PO DAILY 11/09/15 04/04/16 History Ketoconazole 2% Shampoo [Nizoral] 1 applic TOPICAL Q4D PRN 04/04/16 04/04/16 History oxyCODONE HCL 20 mg PO TID 04/04/16 04/04/16 History Allergies Allergy/AdvReac Type Severity Reaction Status Date / Time codeine AdvReac Mild Itching Verified 07/30/16 20:55 Physical Exam Vitals: Vital Signs Temp Pulse Resp BP Pulse Ox 07/30/16 23:42 98.9 F 90 14 136/72 100 07/30/16 22:51 78 07/30/16 22:42 76 07/30/16 22:25 94.7 F L 75 16 128/73 100 07/30/16 22:08 94.0 F L 73 14 134/75 100 07/30/16 21:32 79 16 158/90 100 07/30/16 21:27 78 17 156/90 100 07/30/16 21:21 80 16 157/91 100 07/30/16 21:16 80 16 163/92 100 07/30/16 21:11 93.2 F L 76 16 153/87 100 07/30/16 21:06 77 16 155/87 99 07/30/16 21:01 77 16 155/86 100 07/30/16 20:52 77 16 160/84 100 07/30/16 20:44 94.7 F L 48 L 16 169/87 100 Intake and Output 07/30/16 07/30/16 07/31/16 14:59 22:59 06:59 Intake Total 2.03 Balance 2.03 Intake: Intake, IV Titration 2.03 Amount Propofol 500 mg In Empty 2.03 Bag 1 bag @ Titrate IV . Q0M ONE Rx#:[id number] Other: Weight 69.763 kg Patient Weight 07/31/16 06:59 Weight 69.763 kg - Constitutional General appearance: average body habitus, severe distress - EENT Eyes: abnormal pupil, poor dentition, ptosis ENT: NA/AT, no thrush Ears: bilateral: normal - Neck Neck: no lymphadenopathy, normal ROM, no rigidity, no stridor, no thyromegaly Carotids: bilateral: upstroke delayed Thyroid: bilateral: normal size - Respiratory Respiratory: bilateral: diminished, dullness, rales, rhonchi, wheezing, prolonged expiration - Cardiovascular Rhythm: regular Heart sounds: normal: S1, S2 Abnormal Heart Sounds: systolic murmur, no diastolic murmur, no rub, S3 Gallop, no click - Gastrointestinal General gastrointestinal: decreased bowel sounds, soft, no tenderness, no ventral hernia - Integumentary Integumentary: normal, normal turgor - Neurologic Neurologic: CNII-XII intact - Musculoskeletal Musculoskeletal: generalized weakness - Psychiatric Psychiatric: no A&O x's 3, no appropriate affect, no intact judgment & insight Results CBC & Chem 7: 07/30/16 20:56 07/30/16 20:56 Labs: Abnormal Lab Results - Last 24 Hours (Table) 07/30/16 07/30/16 07/30/16 Range/Units 20:56 20:56 20:56 WBC 3.6 L (3.8-10.6) k/uL RBC 2.74 L (4.30-5.90) m/uL Hgb 8.7 L D (13.0-17.5) gm/dL Hct 26.2 L (39.0-53.0) % ABG Total CO2 (19-24) mmol/L Sodium 134 L (137-145) mmol/L Potassium 5.5 H (3.5-5.1) mmol/L Chloride 97 L (98-107) mmol/L Carbon Dioxide 21 L (22-30) mmol/L BUN 59 H (9-20) mg/dL Creatinine 4.85 H (0.66-1.25) mg/dL Glucose 484 H* (74-99) mg/dL POC Glucose (mg/dL) (75-99) mg/dL Calcium 8.3 L (8.4-10.2) mg/dL CK-MB (CK-2) 2.8 H* (0.0-2.4) ng/mL Troponin I 0.173 H* (0.000-0.034) ng/mL Total Protein 5.7 L (6.3-8.2) g/dL Urine Protein (Negative) Urine Glucose (UA) (Negative) Urine Bacteria (None) /hpf Urine Opiates Screen (NotDetected) U Benzodiazepines Scrn (NotDetected) 07/30/16 07/30/16 07/30/16 Range/Units 20:56 21:28 23:10 WBC (3.8-10.6) k/uL RBC (4.30-5.90) m/uL Hgb (13.0-17.5) gm/dL Hct (39.0-53.0) % ABG Total CO2 25 H (19-24) mmol/L Sodium (137-145) mmol/L Potassium (3.5-5.1) mmol/L Chloride (98-107) mmol/L Carbon Dioxide (22-30) mmol/L BUN (9-20) mg/dL Creatinine (0.66-1.25) mg/dL Glucose (74-99) mg/dL POC Glucose (mg/dL) 488 H (75-99) mg/dL Calcium (8.4-10.2) mg/dL CK-MB (CK-2) (0.0-2.4) ng/mL Troponin I (0.000-0.034) ng/mL Total Protein (6.3-8.2) g/dL Urine Protein 2+ H (Negative) Urine Glucose (UA) 4+ H (Negative) Urine Bacteria Rare H (None) /hpf Urine Opiates Screen Detected H (NotDetected) U Benzodiazepines Scrn Detected H (NotDetected) Thrombosis Risk Factor Assmnt - DVT/VTE Prophylaxis DVT/VTE Prophylaxis: Pharmacologic Prophylaxis ordered, Mechanical Prophylaxis ordered Assessment and Plan Plan: Assessment and plan: 1. Acute Hypoxemic vent-Dependent respiratory failure with respiratory and cardiac arrest due to aspiration pneumonia.Vent management per , aggresive pulmonary toileting with Albuterol 2.5 mg nebulization QID and Pulmicort 1 ng Nebulization BID, will continue with Levaquin and Zosyn ,blood cultures and sputum cultures,monitor ABGs and lactic acid.monitor CXR. 2. Lingular Pneumonia. Start the patient on Levaquin 500 mg IV piggyback every 48 hours, Zosyn 2.25 g IV piggyback every 8 hours, obtain sputum culture, continue nebulized treatment Duoneb 3 ml QID and pulmicort 1 mg nebulization BID. 3. Hypertension and hypertensive cardiovascular disease . Continue labetalol 400 mg orally twice every day, hydralazine 50 mg orally 3 times every day, and amlodipine 10 g orally once every day per 4. Diabetes mellitus type 1. resume Levemir and Humalog pe SSI. 5. History of TIA/CVA. Stable. 6. End-stage renal disease on hemodialysis. Consult nephrology for urgent hemodialysis. 7. Chronic low back pain with chronic pain syndrome. Continue Homer 10/325 mg orally QID prn. 8. DVT prophylaxis. Continue Lovenox 40 mg subcutaneously every 24 hours. 9. GI prophylaxis. Continue Protonix 40 mg orally once every day. 10. Anemia of renal disease. Monitor CBC. 11. Admitted to inpatient. 12. Estimated length of stay 2 midnights.
[2016-07-31 17:22] LABS: Glucose,Whole Blood 32 mg/dL (75-99)
[2016-07-31 17:25] LABS: Glucose,Whole Blood 32 mg/dL (75-99)
[2016-07-31] MEDS ORDERED: DEXTROSE 10 % IN WATER 250 ML IV STA ×3 (17:33→20:47)
--- NOTE | 2016-07-31 17:43 | CONS ---
DATE OF CONSULTATION: 07/31/2016 REASON FOR CONSULTATION: End-stage renal disease. HISTORY OF PRESENT ILLNESS: Patient is a 50-year-old male with history of end-stage renal disease, on hemodialysis on a Thursday, Thursday, Thursday schedule. Patient presented to the hospital as a cardiac arrest. He was intubated en route. Family called, as patient was choking while he was eating a sandwich. He was intubated. He became unresponsive and currently there continues to be pieces of the sandwich being suctioned out of his lungs. Patient extubated himself this morning. He is currently on BiPAP. He appears to be volume-overloaded. No fever, chills. No nausea, vomiting. No bleeding noted. No abdominal pain. No chest pain. PAST MEDICAL HISTORY: 1. End-stage renal disease. 2. Diabetes mellitus. 3. Hyperlipidemia. 4. Hypertension. 5. Osteoarthritis. 6. Diabetic retinopathy. 7. Non-ischemic cardiomyopathy. 8. Anemia of chronic disease. 9. CKD bone mineral disorder. PAST SURGICAL HISTORY: 1. Left arm AV fistula. 2. Cataract surgery. 3. EGD. SOCIAL HISTORY: Patient currently smokes. He does have a history of marijuana use. He currently resides at [facility]. Medications prior to admission included: 1. Insulin. 2. Hydralazine. 3. PhosLo. 4. Compazine. 5. Norvasc. 6. Labetalol. 7. Levaquin. 8. Flomax. ALLERGIES include CODEINE. REVIEW OF SYSTEMS: As per HPI. Other systems negative. On examination, currently patient is on BiPAP. He is not arousable. Blood pressure is 149/78, heart rate 112 per minute. He is afebrile. EXAMINATION OF THE HEART: S1 and S2. EXAMINATION OF THE LUNGS: Bilateral breath sounds are heard. ABDOMEN: Soft, nontender. Examination of lower extremities shows edema 2+ bilaterally. RN ACUTE CARE exam cannot be performed; patient is not following instructions. Labs show sodium 134, potassium 4.9; hemoglobin 8.6 grams/dL. Phosphorus 5.1. ASSESSMENT: 1. End-stage renal disease, on hemodialysis on a Thursday, Thursday, Thursday schedule. Will arrange for hemodialysis today secondary to some degree of volume overload. Patient extubated himself. Hopefully we can get at least a couple of liters. That will help his respiratory status. 2. Status post cardiac arrest from choking on a sandwich. 3. Aspiration pneumonia. 4. History of cardiomyopathy. PLAN: Hemodialysis today as well as in a.m. Continue empiric antibiotics. Thank you for this consultation. Will continue to follow the patient with you during his hospitalization.
[2016-07-31 17:48] LABS: Glucose,Whole Blood 113 mg/dL (75-99)
[2016-07-31] MEDS ORDERED: GELATIN SPONGE,ABSORB (SMALL) 1 EACH SPONGE ONE (18:10)
[2016-07-31 18:54] LABS: Glucose,Whole Blood 33 mg/dL (75-99)
[2016-07-31 19:15] LABS: Glucose,Whole Blood 116 mg/dL (75-99)
[2016-07-31 19:52] LABS: Glucose,Whole Blood 54 mg/dL (75-99)
[2016-07-31] MEDS ORDERED: DEXTROSE 5% IN WATER 1,000 ML IV SCH (20:10)
[2016-07-31 20:24] LABS: ABG Base Excess 6.3 mmol/L; ABG HCO3 29 mmol/L (21-25); ABG PCO2 31 mmHg (35-45); ABG PH 7.58 (7.35-7.45); ABG PO2 95 mmHg (83-108); ABG TCO2 30 mmol/L (19-24)
[2016-07-31] MEDS ORDERED: FUROSEMIDE 10 MG/ML 4 ML VIAL IV STA (20:46)
[2016-07-31 20:49] LABS: Glucose,Whole Blood 44 mg/dL (75-99)
[2016-07-31] MEDS ORDERED: LABETALOL 5 MG/ML VIAL MDV IVP PRN (20:52)
[2016-07-31] MEDS ORDERED: LEVOFLOXACIN 500MG-D5W PMX 500 MG in DEXTROSE/WATER 1 100ML.BAG IVPB SCH (21:00)
[2016-07-31] MEDS ORDERED: cloNIDine 0.2 MG/24HR PATCH 1 PATCH PATCH TRANSDERM SCH (21:00)
[2016-07-31 21:01] LABS: Glucose,Whole Blood 163 mg/dL (75-99)
[2016-07-31] MEDS: DEXTROSE 5%-0.9% NACL 1,000 ML IV SCH (21:01)
[2016-07-31] MEDS: PIPERACILLIN-TAZOBACTAM 3.375 GM in DEXTROSE/WATER 1 50ML.BAG IVPB SCH (21:03)
--- NOTE | 2016-07-31 21:37 | P.CNNES ---
History of Present Illness Consult date: 07/31/16 Reason for Consult: Patient intubated in the intensive care unit following cardiac arrest. History of Present Illness: This patient is a 50-year-old right-handed white male who has a history of end- stage renal disease. He is on hemodialysis 3 days a week. Patient was brought to the emergency room with cardiopulmonary arrest. Apparently he was at home and was eating a sandwich and had choked on the food and possibly had aspiration. The patient became unresponsive and went into full cardiac arrest. CPR was started by EMS. He was intubated in route to the emergency room to [facility] and apparently continued to be unresponsive. His estimated downtime was suggested by his as being about 7 minutes in duration. EMS did resuscitate him at the scene. He was seen in the ER by Dr. Townsend and was sent for a computed tomography scan of the brain. A CAT scan of the brain revealed severe white matter hypodensities suggestive of small vessel ischemic change. 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 Fluid level was noted in the right maxillary sinus. No evidence of acute stroke or hemorrhage. Patient was intubated and transferred to the intensive care unit where he was initially placed on Diprivan. Patient has been off of Diprivan since this morning and has not shown any improvement in his neurological status. Patient apparently has a history of ischemic cardiomyopathy in the past. He is also a diabetic patient and is on end-stage renal disease hemodialysis mode. The patient is examined in the intensive care unit. He has no spontaneous movements. He is having a breathing mask in place and apparently self extubated himself early this morning. He is on the breathing mask and is still unresponsive. Patient does not respond to any verbal commands. His muscle tone is markedly reduced. According to the ICU nursing staff the thinks his downtime was about 7 minutes. She is not a very good historian. His initial troponin levels were elevated. Cardiology has been consulted for further assessment. We will await a echocardiogram to be done tomorrow. At this time the patient has markedly reduced brainstem reflexes. We will obtain a routine EEG tomorrow for further evaluation of possible severe anoxic encephalopathy following cardiac arrest. His overall prognosis at this time remains very guarded. Review of Systems ROS unobtainable: due to endotracheal tube Constitutional: Denies chills, Denies fever Eyes: denies blurred vision, denies pain Ears, nose, mouth and throat: Denies headache, Denies sore throat Cardiovascular: Denies chest pain, Denies shortness of breath Respiratory: Denies cough Gastrointestinal: Denies abdominal pain, Denies diarrhea, Denies nausea, Denies vomiting Musculoskeletal: Denies myalgias Integumentary: Denies pruritus, Denies rash Neurological: Reports paralysis, Denies numbness, Denies weakness Psychiatric: Denies anxiety, Denies depression Endocrine: Denies fatigue, Denies weight change Past Medical History Past Medical History: Diabetes Mellitus, GERD/Reflux, Hyperlipidemia, Hypertension, Osteoarthritis (OA), Prostate Disorder, Renal Disease Additional Past Medical History / Comment(s): ESRD on hemodialysis and AV fistula in left arm; gastroparesis with gastritis; diabetic retinopathy with legal blindness; R eye glaucoma, non ishchemic cardiomyopathy; recurrent pericarditis; chronic back pain, diabetic neuropathy, chronic low back pain, metabolic encephalopathy, hyperosmolar nonketotic, neck fracture and neck pain, stated fell and fx vertebra in back. hyperglycemia,. left arm fistula. History of Any Multi-Drug Resistant Organisms: MRSA Date of last positivie culture/infection: 11/04/13 MDRO Source:: Blood Additional Past Surgical History / Comment(s): Eye surgery, colonoscopy, egd, av fistula left arm, R port removal due to infection-MRSA in port and blood. Past Anesthesia/Blood Transfusion Reactions: No Reported Reaction Past Psychological History: No Psychological Hx Reported, Anxiety Additional Psychological History / Comment(s): SPOKE WITH PT'S PUBLIC LEGAL GUARDIAN CATE-AT TIME OF THIS ADMIT PT IS A FULL CODE .SHE STATED IF PT BECOMES MORE ALERT AND ORIENTATED AND WISHES LATER TO CHANGE CODE STATUS-GIVE HER A CALL AT [phone]. HE STATED THAT SINCE 2014 HE HAD [facility] LIVING AT [facility] AND OF THURSDAY MOVED INTO [facility]IV[facility] APT(PT WAS CONFUSED ABOUT THIS WHEN ASKED) Pt has a cane which he uses most of the time. He has a walker when he feels he needs it- pt stated he has been for 25 years but aprt because he was at [facility] since 2014 Smoking Status: Current every day smoker Past Alcohol Use History: None Reported Additional Past Alcohol Use History / Comment(s): Pt is quitting smoking - he is down to a pack a week-WHICH IS DOWN FROM 2-3 PPD He started smoking about 35 yrs ago. Past Drug Use History: Marijuana Additional Drug Use History / Comment(s): Pt will use marijuana if he is having a painful day or if B/P is elevated. He does not use on a daily basis. - Past Family History Mother Family Medical History: Hypertension Father Family Medical History: Cancer Additional Family Medical History / Comment(s): Father has prostate cancer. He is 75 yrs old and very active. Daughter(s) Family Medical History: No Reported History Medications and Allergies Home Medications Medication Instructions Recorded Confirmed Type Insulin Detemir [Levemir] 10 unit SQ DAILY 09/07/14 07/31/16 History hydrALAZINE HCL [Apresoline] 50 mg PO TID 09/07/14 07/31/16 History Calcium Acetate [PhosLo] 1,334 mg PO AC-TID 11/09/15 07/31/16 History Insulin Aspart [NovoLOG] See Protocol SQ ACHS 11/09/15 07/31/16 History Prochlorperazine [Compazine] 10 mg PO Q6H PRN 11/09/15 07/31/16 History amLODIPine [Norvasc] 10 mg PO DAILY 11/09/15 07/31/16 History Ketoconazole 2% Shampoo [Nizoral] 1 applic TOPICAL DAILY PRN 04/04/16 07/31/16 History ALPRAZolam [Xanax] 1 mg PO BID 07/31/16 07/31/16 History Gabapentin [Neurontin] 400 mg PO HS 07/31/16 07/31/16 History Hydrocodone/Acetaminophen [Alexander 1 tab PO QID PRN 07/31/16 07/31/16 History 10-325 Tablet] Lidocaine 5% Patch [Lidoderm] 1 patch TOPICAL DAILY 07/31/16 07/31/16 History Lisinopril [Zestril] 40 mg PO DAILY 07/31/16 07/31/16 History oxyCODONE HCL 20 mg PO TID PRN 07/31/16 07/31/16 History oxyCODONE HCL [OxyCONTIN] 60 mg PO Q12H 07/31/16 07/31/16 History Allergies Allergy/AdvReac Type Severity Reaction Status Date / Time codeine AdvReac Mild Itching Verified 07/30/16 20:55 Physical Examination - Vital Signs Vital Signs: Vital Signs Temp Pulse Pulse Resp BP BP Pulse Ox 07/31/16 19:00 103 H 15 142/77 99 07/31/16 18:00 107 H 21 152/74 93 L 07/31/16 17:00 98.2 F 105 H 24 129/74 92 L 07/31/16 16:17 110 H 07/31/16 16:00 106 H 111 H 24 149/77 93 L 07/31/16 15:56 108 H 93 L 07/31/16 15:00 112 H 25 H 149/78 96 07/31/16 14:00 103 H 20 127/83 100 07/31/16 13:00 99 21 159/76 97 07/31/16 12:10 93 07/31/16 12:00 99.2 F 93 18 139/81 94 L 07/31/16 11:58 93 07/31/16 11:00 97 17 174/91 90 L 07/31/16 10:00 101 H 10 L 166/93 100 07/31/16 09:00 98.2 F 102 H 15 194/98 99 07/31/16 08:00 17 07/31/16 07:32 96 07/31/16 07:12 96 07/31/16 07:00 94 15 181/93 99 07/31/16 06:00 91 14 175/86 100 07/31/16 05:00 86 14 154/80 100 07/31/16 04:00 90 14 159/82 100 07/31/16 03:38 98 07/31/16 03:30 89 12 151/82 96 07/31/16 03:28 99 14 07/31/16 03:00 88 15 158/84 98 07/31/16 02:30 85 14 167/88 100 07/31/16 02:00 85 14 154/84 100 07/31/16 01:30 85 14 143/79 100 07/31/16 01:00 86 14 143/77 100 07/31/16 00:50 87 14 143/77 100 07/31/16 00:40 87 14 147/76 100 07/31/16 00:30 90 14 147/76 100 07/31/16 00:20 89 14 147/76 100 07/31/16 00:10 99.1 F 93 14 140/78 100 07/30/16 23:42 98.9 F 90 14 136/72 100 07/30/16 23:10 80 14 135/76 100 07/30/16 22:51 78 07/30/16 22:42 76 07/30/16 22:39 99.1 F 111 H 20 149/78 07/30/16 22:25 94.7 F L 75 16 128/73 100 07/30/16 22:08 94.0 F L 73 14 134/75 100 07/30/16 21:32 79 16 158/90 100 07/30/16 21:27 78 17 156/90 100 07/30/16 21:21 80 16 157/91 100 07/30/16 21:16 80 16 163/92 100 07/30/16 21:11 93.2 F L 76 16 153/87 100 07/30/16 21:06 77 16 155/87 99 07/30/16 21:01 77 16 155/86 100 07/30/16 20:52 77 16 160/84 100 07/30/16 20:44 94.7 F L 48 L 16 169/87 100 Intake and Output 07/31/16 07/31/16 07/31/16 06:59 14:59 22:59 Intake Total 565.041 574.058 50 Output Total 105 385 105 Balance 460.041 189.058 -55 Intake: IV 530 550.0 50 Piperacillin-Tazobactam 3 50 50.0 .375 gm In Dextrose/Water 1 50ml.bag @ 12.5 mls/hr IVPB ONCE [facility] Rx#: [id number] Sodium Chloride 0.9% 1, 480 500 50 000 ml @ 80 mls/hr IV . [id number] [facility] Rx#:[id number] Intake, IV Titration 35.041 24.058 Amount Propofol 500 mg In Empty 35.041 24.058 Bag 1 bag @ Titrate IV . Q0M [facility] Rx#:[id number] Output: Urine 105 385 105 Other: Voiding Method Indwelling Catheter Indwelling Catheter Indwelling Catheter Weight 65.8 kg 65.8 kg Patient Weight 08/01/16 06:59 Weight 65.8 kg - Constitutional General appearance: average body habitus - EENT EENT: PERRL, mucous membranes moist - Respiratory Respiratory: lungs clear, normal breath sounds - Cardiovascular Cardiovascular: regular rate Extremities: no peripheral edema bilaterally - Gastrointestinal Gastrointestinal: normoactive bowel sounds - Integumentary Integumentary: normal - Neurologic Cranial nerve examination: PERRL, EOMI, VFF, V1/V2/V3 grossly intact, tongue midline Speech examination: intact, global aphasia Reflex and gait examination: intact Reflexes: 0: ankle, bicep, knee, tricep - Musculoskeletal Musculoskeletal: no pain Results - Laboratory Findings CBC and BMP: 07/31/16 05:28 07/31/16 05:28 Abnormal Lab Findings: Abnormal Labs 07/30/16 07/30/16 07/30/16 20:56 20:56 20:56 WBC 3.6 L RBC 2.74 L Hgb 8.7 L D Hct 26.2 L RDW Lymphocytes # ABG pCO2 ABG pO2 ABG Total CO2 ABG O2 Saturation Sodium 134 L Potassium 5.5 H Chloride 97 L Carbon Dioxide 21 L BUN 59 H Creatinine 4.85 H Glucose 484 H* POC Glucose (mg/dL) Hemoglobin A1c Calcium 8.3 L Phosphorus CK-MB (CK-2) 2.8 H* Troponin I 0.173 H* Total Protein 5.7 L Urine Protein Urine Glucose (UA) Urine Bacteria Urine Opiates Screen U Benzodiazepines Scrn 07/30/16 07/30/16 07/30/16 20:56 21:28 23:10 WBC RBC Hgb Hct RDW Lymphocytes # ABG pCO2 ABG pO2 ABG Total CO2 25 H ABG O2 Saturation Sodium Potassium Chloride Carbon Dioxide BUN Creatinine Glucose POC Glucose (mg/dL) 488 H Hemoglobin A1c Calcium Phosphorus CK-MB (CK-2) Troponin I Total Protein Urine Protein 2+ H Urine Glucose (UA) 4+ H Urine Bacteria Rare H Urine Opiates Screen Detected H U Benzodiazepines Scrn Detected H 07/31/16 07/31/16 07/31/16 00:07 05:25 05:28 WBC RBC 2.76 L Hgb 8.6 L Hct 27.3 L RDW 15.7 H Lymphocytes # 0.3 L ABG pCO2 ABG pO2 ABG Total CO2 ABG O2 Saturation 98.0 H Sodium Potassium Chloride Carbon Dioxide BUN Creatinine Glucose POC Glucose (mg/dL) 424 H Hemoglobin A1c Calcium Phosphorus CK-MB (CK-2) Troponin I Total Protein Urine Protein Urine Glucose (UA) Urine Bacteria Urine Opiates Screen U Benzodiazepines Scrn 07/31/16 07/31/16 07/31/16 05:28 05:28 06:58 WBC RBC Hgb Hct RDW Lymphocytes # ABG pCO2 ABG pO2 ABG Total CO2 ABG O2 Saturation Sodium 134 L Potassium Chloride Carbon Dioxide 19 L BUN 62 H Creatinine 5.06 H* Glucose 322 H POC Glucose (mg/dL) 320 H Hemoglobin A1c 11.1 H Calcium 8.3 L Phosphorus 5.1 H CK-MB (CK-2) Troponin I Total Protein 5.6 L Urine Protein Urine Glucose (UA) Urine Bacteria Urine Opiates Screen U Benzodiazepines Scrn 07/31/16 07/31/16 07/31/16 08:41 11:45 12:08 WBC RBC Hgb Hct RDW Lymphocytes # ABG pCO2 32 L ABG pO2 64 L ABG Total CO2 ABG O2 Saturation 93.5 L Sodium Potassium Chloride Carbon Dioxide BUN Creatinine Glucose POC Glucose (mg/dL) 337 H 217 H Hemoglobin A1c Calcium Phosphorus CK-MB (CK-2) Troponin I Total Protein Urine Protein Urine Glucose (UA) Urine Bacteria Urine Opiates Screen U Benzodiazepines Scrn 07/31/16 07/31/16 07/31/16 17:21 17:22 17:46 WBC RBC Hgb Hct RDW Lymphocytes # ABG pCO2 ABG pO2 ABG Total CO2 ABG O2 Saturation Sodium Potassium Chloride Carbon Dioxide BUN Creatinine Glucose POC Glucose (mg/dL) 32 L 32 L 113 H Hemoglobin A1c Calcium Phosphorus CK-MB (CK-2) Troponin I Total Protein Urine Protein Urine Glucose (UA) Urine Bacteria Urine Opiates Screen U Benzodiazepines Scrn 07/31/16 07/31/16 18:53 19:14 WBC RBC Hgb Hct RDW Lymphocytes # ABG pCO2 ABG pO2 ABG Total CO2 ABG O2 Saturation Sodium Potassium Chloride Carbon Dioxide BUN Creatinine Glucose POC Glucose (mg/dL) 33 L 116 H Hemoglobin A1c Calcium Phosphorus CK-MB (CK-2) Troponin I Total Protein Urine Protein Urine Glucose (UA) Urine Bacteria Urine Opiates Screen U Benzodiazepines Scrn Assessment and Plan (1) Anoxic encephalopathy Status: Acute Code(s): G93.1 - ANOXIC BRAIN DAMAGE, NOT ELSEWHERE CLASSIFIED (2) Cardiac arrest Status: Acute Code(s): I46.9 - CARDIAC ARREST, CAUSE UNSPECIFIED (3) Chronic renal failure Status: Acute Code(s): N18.9 - CHRONIC KIDNEY DISEASE, UNSPECIFIED (4) Coma Status: Acute Code(s): R40.20 - UNSPECIFIED COMA Plan: This patient is a 50-year-old male who suffered an acute cardiac arrest possibly due to choking while eating a sandwich at home. EMS was called to the scene as a patient went into full cardiac arrest. Patient was intubated and brought into the emergency room where he was seen by Dr. Townsend. And went a computed tomography scan of the brain which was negative for any acute changes. He was intubated and transferred to the intensive care unit. Patient self extubated himself this morning. He has been off of Diprivan. He remains unresponsive at this time in the intensive care unit. This patient likely has suffered a severe degree of anoxic encephalopathy. We will obtain routine EEG for further evaluation. His overall neurological exam at this time reveals severe encephalopathy secondary to cardiac arrest. His overall prognosis at this time remains very guarded. He remains off of Diprivan and we will reassess him tomorrow in the ICU to see if there is any significant improvement. Case was discussed at length with the ICU nurse this evening. We will continue close neurological follow-up of this patient in the ICU. His overall prognosis at this time remains very guarded. Time with Patient: Greater than 30
[2016-07-31 21:49] LABS: Glucose,Whole Blood 77 mg/dL (75-99)
[2016-07-31 22:17] LABS: Glucose,Whole Blood 55 mg/dL (75-99)
[2016-07-31 22:49] LABS: Glucose,Whole Blood 49 mg/dL (75-99)
[2016-07-31 23:11] LABS: Glucose,Whole Blood 58 mg/dL (75-99)
[2016-07-31] MEDS ORDERED: DEXTROSE 50%-WATER 50 ML SYRINGE IVP STA (23:15)
[2016-07-31 23:30] LABS: Glucose,Whole Blood 155 mg/dL (75-99)
[2016-08-01] MEDS: INSULIN LISPRO (humaLOG) 300 UNIT/3 ML VIAL SQ SCH ×4 (00:03→17:15)
[2016-08-01] MEDS: HEPARIN SODIUM,PORCINE 5,000 UNIT/ML 1 ML VIAL SQ SCH ×3 (00:03→17:11)
[2016-08-01 00:07] LABS: Glucose,Whole Blood 117 mg/dL (75-99)
[2016-08-01] MEDS ORDERED: IPRATROPIUM-ALBUTEROL 3 ML NEB INHALATION PRN (00:13)
[2016-08-01 01:14] LABS: Glucose,Whole Blood 122 mg/dL (75-99)
[2016-08-01 05:27] LABS: Calcium 8.5 mg/dL (8.4-10.2); Magnesium 1.9 mg/dL (1.6-2.3); Phosphorous 4.4 mg/dL (2.5-4.5); Potassium 4.3 mmol/L (3.5-5.1)
[2016-08-01 05:43] LABS: Glucose,Whole Blood 188 mg/dL (75-99)
[2016-08-01 06:12] LABS: CH 31.8; CHCM 32.8; HCT 28.6 % (39.0-53.0); HDW 2.68; HGB 9.5 gm/dL (13.0-17.5); MCH 32.4 pg (25.0-35.0); MCHC 33.2 g/dL (31.0-37.0); MCV 97.5 fL (80.0-100.0); Macrocytosis Slight; RBC 2.93 m/uL (4.30-5.90); RDW 15.9 % (11.5-15.5); WBC 6.8 k/uL (3.8-10.6)
--- NOTE | 2016-08-01 07:01 | XR ---
EXAMINATION TYPE: XR chest 1V DATE OF EXAM: 08/01/2016 HISTORY: aspiration. REFERENCE: Previous study dated 07/31/2016. FINDINGS: The patient has been extubated. The patient is NG tube remains in place, unchanged in appea ed. The heart is mildly enlarged. There has been near complete resolution of the patient's left-sided eff usion. There is developed increased opacity at the right lung base. This may represent fluid within t he major fissure. There is increased interstitial change. This likely reflects edema. IMPRESSION: 1. WAXING AND WANING APPEARANCE TO THE CHEST. 2. MUCH IMPROVED AERATION OF THE LEFT LUNG BASE. 3. PROBABLE PSEUDOTUMOR ON THE RIGHT. 4. CHANGES MOST CONSISTENT WITH CONGESTIVE HEART FAILURE.
[2016-08-01] MEDS: PIPERACILLIN-TAZOBACTAM 3.375 GM in DEXTROSE/WATER 1 50ML.BAG IVPB SCH ×2 (08:24→20:25)
[2016-08-01] MEDS: PANTOPRAZOLE 40 MG/10 ML VIAL IV SCH ×2 (08:24→20:23)
[2016-08-01 08:39] LABS: Glucose,Whole Blood 265 mg/dL (75-99)
[2016-08-01] MEDS: INSULIN DETEMIR 100 UNIT/ML 10 ML VIAL SQ SCH (08:41)
[2016-08-01] MEDS: IPRATROPIUM-ALBUTEROL 3 ML NEB INHALATION SCH ×5 (08:46→19:20)
[2016-08-01 09:51] VITALS: BMI 20.9
--- NOTE | 2016-08-01 11:11 | ECHOF ---
Referral Reason:Cardiac Arrest MEASUREMENTS -------- HEIGHT: 172.7 cm WEIGHT: 65.8 kg BP: 140/75 RVIDd: 2.5 cm (< 3.3) IVSd: 1.3 cm (0.6 - 1.1) LVIDd: 4.4 cm (3.9 - 5.3) LVPWd: 1.3 cm (0.6 - 1.1) IVSs: 1.7 cm LVIDs: 3.6 cm LVPWs: 2.0 cm LA Diam: 3.6 cm (2.7 - 3.8) Ao Diam: 3.4 cm (2.0 - 3.7) AV Cusp: 1.9 cm (1.5 - 2.6) MV EXCURSION: 21.562 mm (> 18.000) MV EF SLOPE: 91 mm/s (70 - 150) EPSS: 0.8 cm MV E Tang: 1.05 m/s MV DecT: 175 ms MV A Tang: 0.71 m/s MV E/A Ratio: 1.48 FINDINGS -------- Resting tachycardia (HR>100bpm). This was a technically good study. The left ventricular size is normal. There is mild concentric left ventricular hypertrophy. Overall left ventricular systolic function is normal with, an EF between 55 - 60 %. The right ventricle is normal in size and function. The left atrium is normal in size. The right atrium is normal in size. There is mild aortic valve sclerosis. The mitral valve leaflets are mildly thickened. Mild mitral annular calcification present. There is trace to mild mitral regurgitation. Trace tricuspid regurgitation present. The pulmonic valve is normal. The aortic root size is normal. Normal inferior vena cava with normal inspiratory collapse consistent with estimated right atrial pressure of 5 mmHg. The pericardium is normal. CONCLUSIONS -------- 1. Resting tachycardia (HR>100bpm). 2. The mitral valve leaflets are mildly thickened. 3. Mild mitral annular calcification present. 4. There is trace to mild mitral regurgitation. 5. Trace tricuspid regurgitation present. 6. The pulmonic valve is normal. 7. The aortic root size is normal. 8. Normal inferior vena cava with normal inspiratory collapse consistent with estimated right atrial pressure of 5 mmHg. 9. The pericardium is normal. 10. This was a technically good study. 11. The left ventricular size is normal. 12. There is mild concentric left ventricular hypertrophy. 13. Overall left ventricular systolic function is normal with, an EF between 55 - 60 %. 14. The right ventricle is normal in size and function. 15. The left atrium is normal in size. 16. The right atrium is normal in size. 17. There is mild aortic valve sclerosis. [employer]: Dee Dee Guzman RDCS
[2016-08-01 11:40] LABS: Glucose,Whole Blood 203 mg/dL (75-99)
--- NOTE | 2016-08-01 11:50 | PN ---
A 50-year-old male who apparently aspirated on a bologna sandwich. He apparently became unresponsive and CPR was started by the family members. CPR continued for an unknown period of time, maybe about 10 minutes or so, maybe a bit less. EMS arrived. The patient was brought to the ER where he was further evaluated and treated and resuscitated. He apparently was intubated in the field by EMS. It is not clear how long CPR went on for. Currently, the big issue right now is suspected anoxic brain injury. The patient's mental status is very, very poor. I do not know what his premorbid mental status was, but apparently it was better than this. He has been seen by Neurology. A CT scan was ordered. A repeat CT scan is ordered. An EEG should be done. Anyway, the patient is not responsive at all. He has got nasal O2 on but there is no oxygen running through it. He has get an NG tube in place. Tube feeds are running through that. His chest x-ray is actually improved. He self extubated himself yesterday and we have been able to keep him off the ventilator since. He is currently getting an IV of D5 at 0.9 at 50 an hour. Current vital signs include temperature 99.1, heart rate is 100, respiratory rate 10, blood pressure 153/89, mean 110, room air saturation 98%. Appears in no acute distress. HEENT examination is grossly unremarkable. Mucous membranes are moist. No oral lesions. Neck is supple. Full range of motion. No adenopathy or thyromegaly. Cardiovascular examination reveals regular rhythm and rate. Heart sounds are distant. S1, S2 normal. Lungs reveal mostly clear breath sounds. A few scattered rhonchi. No wheezes or crackles. Abdomen is soft. Bowel sounds are heard. No masses or tenderness. Extremities are intact without cyanosis, clubbing, or edema. Skin is without rash. Neurologic examination cannot be performed. Current lab data includes a white count of 6.8, hemoglobin 9.5, hematocrit 28.6, platelet count 151,000. Sodium 136, potassium 4.3, chloride is 98, CO2 of 25, BUN and creatinine were 46 and 4.10. He does have a history of end-stage renal disease. Microbiologically, everything thus far is negative. Chest x-ray shows improvement. Medications are reviewed. ASSESSMENT: 1. Hypoxemic respiratory failure with aspiration pneumonia induced cardiopulmonary arrest, status post cardiopulmonary resuscitation with return of spontaneous circulation. 2. History of end-stage renal disease, currently on 3-time a week hemodialysis. 3. Suspected severe anoxic brain injury from a prolonged resuscitation. 4. History of diabetes with diabetic end-organ involvement. 5. Gastroesophageal reflux disease. 6. History of essential hypertension. 7. Hyperlipidemia. 8. Degenerative joint disease. 9. Diabetic retinopathy with blindness. 10. Diabetic neuropathy. 11. Previous methicillin-resistant Staphylococcus aureus infection and removal of the port. 12. Multiple other medical problems and comorbidities. PLAN: Neurology is on board. Medications are reviewed. Prognosis is poor. Additional recommendations and suggestions are forthcoming.
--- NOTE | 2016-08-01 12:08 | PN ---
A 50-year-old gentleman who is admitted to hospital with respiratory arrest following aspiration. He has been extubated, appears confused without significant response to stimuli. On exam, heart rate is 100 beats per minute, blood pressure 153/89, respiratory rate is 18. Chest exam reveals diminished air entry at the bases. Heart exam reveals first and second heart sounds. No gallop. Exam of extremities reveals trace edema. Peripheral pulses are felt. Echo is pending at this time. ASSESSMENT: 1. Status post respiratory arrest secondary to aspiration. 2. Hypertension. 3. Diabetes. PLAN: Patient will continue with the current medications. Prognosis guarded. It is unclear if the patient suffered hypoxic encephalopathy during the respiratory arrest.
[2016-08-01] MEDS ORDERED: FUROSEMIDE 10 MG/ML 4 ML VIAL IV STA (12:24)
--- NOTE | 2016-08-01 13:06 | CT ---
EXAMINATION TYPE: CT brain wo con DATE OF EXAM: 08/01/2016 COMPARISON: 07/30/2016 HISTORY: Anoxic encephalopathy CT DLP: 1156.[address] of the brain was performed. The ventricles, basal cisterns and sulci overlying the cerebral convexities demonstrate moderate enla rgement. Remote insult right valentine radiata. There is no evidence for intracranial hemorrhage or sulcal effacement. There is severe decreased attenuation about the periventricular white matter and deep white matter of both cerebral hemispheres, compatible with chronic small vessel ischemia. Differential diagnosis arredondo s include demyelination. No mass effects are seen.No midline shift. Osseous calvarium is intact. If symptoms persist consider MRI. IMPRESSION: 1. Stable atrophic and chronic small vessel ischemic change without acute intracranial process seen at this time.
--- NOTE | 2016-08-01 15:10 | P.PN ---
Subjective This is a 50[birth year]: year-old male with a previous medical history significant for hypertension and hypertensive cardiovascular disease, hyperlipidemia, diabetes mellitus type 1, end-stage renal disease on hemodialysis, patient has not been under my care for the past 2 years apparently he was at medical [facility] and apparently was released from there after he was assigned a public guardian currently lives in a [facility] area with his , apparently patient was just released from [facility] few days ago after he was admitted to [facility] due to Intraventricular hemorrhage of both occipital horns and was seen at [facility]. Patient apparently was eating a Bologna sandwich at home when he chocked on on it and he became unresponsive and went into cardiac and respiratory arrest that was witnessed for 5-7 mins and CPR was staerted and he was intubated on the scene and was transported to the ER at [facility] and had Ct scan that showed ischemic changes without IVH or intracranial bleed, CXR showed aspiration pneumonia, not sure if patient went for dialysis today and patient will be seen by Pulmonary . 08/01: Patient is followed by multiple consultants including cardiology, estimator printing, neurology. EEG is pending. Echocardiogram reveals EF of 55-60%, mild mitral regurgitation, trace tricuspid regurgitation. Repeat computed tomography scan of the brain showed stable atrophic and chronic small vessel ischemic change without acute intracranial process. Patient is not responsive. He self extubated yesterday. Pulse ox is running 97% on room air. He has been afebrile. Objective - Vital Signs Vital signs: Vital Signs Temp 99.1 F 08/01/16 08:00 Pulse 109 H 08/01/16 10:00 Resp 12 08/01/16 10:00 BP 153/89 08/01/16 10:00 Pulse Ox 98 08/01/16 10:00 Intake & Output 07/31/16 08/01/16 08/01/16 18:59 06:59 18:59 Intake Total 614.058 855 260 Output Total 475 325 185 Balance 139.058 530 75 Weight 65.8 kg 62.3 kg 62.3 kg Intake: IV 590.0 675 240 Dextrose 5%-0.9% NaCl 1, 575 200 000 ml @ 50 mls/hr IV . Q20H [facility] Rx#:[id number] Piperacillin-Tazobactam 3 50.0 .375 gm In Dextrose/Water 1 50ml.bag @ 12.5 mls/hr IVPB ONCE [facility] [[email or web address]] Rx#: [id number] Sodium Chloride 0.9% 1, 540 100 40 000 ml @ 80 mls/hr IV . [id number] [facility] Rx#:[id number] Intake, IV Titration 24.058 Amount Propofol 500 mg In Empty 24.058 Bag 1 bag @ Titrate IV . Q0M [facility] Rx#:[id number] Tube Feeding 180 20 Output: Urine 475 325 185 Other: Voiding Method Indwelling Catheter Indwelling Catheter - Exam General appearance: average body habitus, no distress - EENT Eyes: abnormal pupil, poor dentition, ptosis ENT: NA/AT, no thrush Ears: bilateral: normal - Neck Neck: no lymphadenopathy, normal ROM, no rigidity, no stridor, no thyromegaly Carotids: bilateral: upstroke delayed Thyroid: bilateral: normal size - Respiratory Respiratory: bilateral: diminished, dullness, rales, rhonchi, wheezing, prolonged expiration - Cardiovascular Rhythm: regular Heart sounds: normal: S1, S2 Abnormal Heart Sounds: systolic murmur, no diastolic murmur, no rub, S3 Gallop, no click - Gastrointestinal General gastrointestinal: decreased bowel sounds, soft, no tenderness, no ventral hernia - Integumentary Integumentary: normal, normal turgor - Neurologic Neurologic: CNII-XII intact - Musculoskeletal Musculoskeletal: generalized weakness - Psychiatric Psychiatric: no A&O x's 3, no appropriate affect, no intact judgment & insight - Labs CBC & Chem 7: 08/01/16 04:51 08/01/16 04:51 Labs: Abnormal Lab Results - Last 24 Hours (Table) 07/31/16 07/31/16 07/31/16 Range/Units 11:45 12:08 17:21 RBC (4.30-5.90) m/uL Hgb (13.0-17.5) gm/dL Hct (39.0-53.0) % RDW (11.5-15.5) % ABG pH (7.35-7.45) ABG pCO2 32 L (35-45) mmHg ABG pO2 64 L (83-108) mmHg ABG HCO3 (21-25) mmol/L ABG Total CO2 (19-24) mmol/L ABG O2 Saturation 93.5 L (94-97) % Sodium (137-145) mmol/L BUN (9-20) mg/dL Creatinine (0.66-1.25) mg/dL Glucose (74-99) mg/dL POC Glucose (mg/dL) 217 H 32 L (75-99) mg/dL 07/31/16 07/31/16 07/31/16 Range/Units 17:22 17:46 18:53 RBC (4.30-5.90) m/uL Hgb (13.0-17.5) gm/dL Hct (39.0-53.0) % RDW (11.5-15.5) % ABG pH (7.35-7.45) ABG pCO2 (35-45) mmHg ABG pO2 (83-108) mmHg ABG HCO3 (21-25) mmol/L ABG Total CO2 (19-24) mmol/L ABG O2 Saturation (94-97) % Sodium (137-145) mmol/L BUN (9-20) mg/dL Creatinine (0.66-1.25) mg/dL Glucose (74-99) mg/dL POC Glucose (mg/dL) 32 L 113 H 33 L (75-99) mg/dL 07/31/16 07/31/16 07/31/16 Range/Units 19:14 19:50 20:15 RBC (4.30-5.90) m/uL Hgb (13.0-17.5) gm/dL Hct (39.0-53.0) % RDW (11.5-15.5) % ABG pH 7.58 H (7.35-7.45) ABG pCO2 31 L (35-45) mmHg ABG pO2 (83-108) mmHg ABG HCO3 29 H (21-25) mmol/L ABG Total CO2 30 H (19-24) mmol/L ABG O2 Saturation 98.0 H (94-97) % Sodium (137-145) mmol/L BUN (9-20) mg/dL Creatinine (0.66-1.25) mg/dL Glucose (74-99) mg/dL POC Glucose (mg/dL) 116 H 54 L (75-99) mg/dL 07/31/16 07/31/16 07/31/16 Range/Units 20:29 20:59 22:15 RBC (4.30-5.90) m/uL Hgb (13.0-17.5) gm/dL Hct (39.0-53.0) % RDW (11.5-15.5) % ABG pH (7.35-7.45) ABG pCO2 (35-45) mmHg ABG pO2 (83-108) mmHg ABG HCO3 (21-25) mmol/L ABG Total CO2 (19-24) mmol/L ABG O2 Saturation (94-97) % Sodium (137-145) mmol/L BUN (9-20) mg/dL Creatinine (0.66-1.25) mg/dL Glucose (74-99) mg/dL POC Glucose (mg/dL) 44 L 163 H 55 L (75-99) mg/dL 07/31/16 07/31/16 07/31/16 Range/Units 22:48 23:10 23:28 RBC (4.30-5.90) m/uL Hgb (13.0-17.5) gm/dL Hct (39.0-53.0) % RDW (11.5-15.5) % ABG pH (7.35-7.45) ABG pCO2 (35-45) mmHg ABG pO2 (83-108) mmHg ABG HCO3 (21-25) mmol/L ABG Total CO2 (19-24) mmol/L ABG O2 Saturation (94-97) % Sodium (137-145) mmol/L BUN (9-20) mg/dL Creatinine (0.66-1.25) mg/dL Glucose (74-99) mg/dL POC Glucose (mg/dL) 49 L 58 L 155 H (75-99) mg/dL 08/01/16 08/01/16 08/01/16 Range/Units 00:06 01:12 04:51 RBC 2.93 L (4.30-5.90) m/uL Hgb 9.5 L (13.0-17.5) gm/dL Hct 28.6 L (39.0-53.0) % RDW 15.9 H (11.5-15.5) % ABG pH (7.35-7.45) ABG pCO2 (35-45) mmHg ABG pO2 (83-108) mmHg ABG HCO3 (21-25) mmol/L ABG Total CO2 (19-24) mmol/L ABG O2 Saturation (94-97) % Sodium (137-145) mmol/L BUN (9-20) mg/dL Creatinine (0.66-1.25) mg/dL Glucose (74-99) mg/dL POC Glucose (mg/dL) 117 H 122 H (75-99) mg/dL 08/01/16 08/01/16 08/01/16 Range/Units 04:51 05:41 08:37 RBC (4.30-5.90) m/uL Hgb (13.0-17.5) gm/dL Hct (39.0-53.0) % RDW (11.5-15.5) % ABG pH (7.35-7.45) ABG pCO2 (35-45) mmHg ABG pO2 (83-108) mmHg ABG HCO3 (21-25) mmol/L ABG Total CO2 (19-24) mmol/L ABG O2 Saturation (94-97) % Sodium 136 L (137-145) mmol/L BUN 46 H (9-20) mg/dL Creatinine 4.10 H (0.66-1.25) mg/dL Glucose 160 H (74-99) mg/dL POC Glucose (mg/dL) 188 H 265 H (75-99) mg/dL Microbiology - Last 24 Hours (Table) 07/31/16 02:00 Urine Culture - Preliminary Urine,Catheterized 07/30/16 21:22 Gram Stain - Preliminary Sputum Sputum Culture - Preliminary Assessment and Plan Plan: 1. Acute Hypoxemic vent-Dependent respiratory failure with respiratory and cardiac arrest due to aspiration pneumonia.self extubated. Followed by , aggresive pulmonary toileting with Albuterol 2.5 mg nebulization QID and Pulmicort 1 ng Nebulization BID, will continue with Levaquin and Zosyn ,blood cultures and sputum cultures,monitor ABGs and lactic acid.monitor CXR. 2. Lingular Pneumonia. Start the patient on Levaquin 500 mg IV piggyback every 48 hours, Zosyn 2.25 g IV piggyback every 8 hours, obtain sputum culture, continue nebulized treatment Duoneb 3 ml QID and pulmicort 1 mg nebulization BID. 3. Hypertension and hypertensive cardiovascular disease . Continue labetalol 400 mg orally twice every day, hydralazine 50 mg orally 3 times every day, and amlodipine 10 g orally once every day per 4. Anoxic encephalopathy. Neurology is following. EEG pending. 5. Diabetes mellitus type 1. resume Levemir and Humalog pe SSI. 6. History of TIA/CVA. Stable. 7. End-stage renal disease on hemodialysis. Consult nephrology for urgent hemodialysis. 8. Chronic low back pain with chronic pain syndrome. Continue P[place] 10/325 mg orally QID prn. 9. DVT prophylaxis. Continue Lovenox 40 mg subcutaneously every 24 hours. 10. GI prophylaxis. Continue Protonix 40 mg orally once every day. 11. Anemia of renal disease. Monitor CBC. Prognosis guarded. Impression and plan of care have been directed as dictated by the signing physician. Erlinda Vidales nurse practitioner acting as scribe for signing physician.
[2016-08-01] MEDS: DEXTROSE 5%-0.9% NACL 1,000 ML IV SCH (17:11)
[2016-08-01 17:17] LABS: Glucose,Whole Blood 90 mg/dL (75-99)
--- NOTE | 2016-08-01 18:30 | PN ---
Patient is seen for followup for end-stage renal disease. Patient was admitted to the hospital with respiratory arrest, unresponsiveness after choking on a sandwich. He was initially intubated en route to the ER. He extubated himself. Patient has been volume-overloaded. He has not been waking up, and nursing staff reported suctioning out pieces of sandwich from his lungs. He is maintained on antibiotics for aspiration pneumonia. Yesterday patient was hypoglycemic with blood sugars in the 30s. He received D5W, which had to be increased to about 75 mL/hour. This was eventually discontinued once feeding tube was placed and tube feedings were started. Patient is scheduled for hemodialysis today. On examination, he is not waking up. Blood pressure is 141/86, heart rate 105 per minute. He is afebrile. EXAMINATION OF THE HEART: S1 and S2. EXAMINATION OF THE LUNGS: Decreased breath sounds at the bases. ABDOMEN: Soft. Examination of lower extremities shows edema 1+ bilaterally. YACHT RIGGER examination shows patient unresponsive. He is not waking up. Labs show sodium 136, potassium 4.3. Hemoglobin 9.5 g/dL. ASSESSMENT: 1. End-stage renal disease, on hemodialysis on a Thursday, Thursday, Thursday schedule. Patient was dialyzed yesterday with about 4 liters of ultrafiltration. We will dialyze him again today. 2. Status post cardiac arrest with some degree of anoxic damage, as patient is not waking up after he self-extubated. 3. Hypoglycemia, currently improved with ongoing tube feedings. Blood sugar now on the higher side. 4. Encephalopathy, most likely anoxic. 5. Aspiration pneumonia. 6. Volume overload, currently improved. PLAN: Hemodialysis again today with goal UF of 3 to 4 liters as tolerated. Overall prognosis is poor.
--- NOTE | 2016-08-01 20:47 | P.PN ---
Subjective This patient is a 50-year-old male who is evaluated today in the intensive care unit after suffering cardiac arrest. Patient self extubated himself yesterday. He remains off the ventilator today. The patient remains essentially obtunded and stuporous. He has only occasional movements noted by the ICU nursing staff. Patient underwent routine EEG today which is reviewed. EEG is severely slow and consistent with severe anoxic encephalopathy. There is also early sign for burst suppression pattern. Some sharp wave activity was noted. We are recommending to place the patient on IV Keppra for further management. Patient is status post cardiac arrest and is being followed closely by cardiology. Patient has a known history of severe cardiovascular hypertensive disease. He has end-stage renal disease as well and is on hemodialysis. We will try to obtain a follow-up EEG tomorrow after he is loaded with anticonvulsant medication tonight. We will recheck to see if there is any significant changes in his EEG background. He underwent a computed tomography scan of the brain today which revealed atrophy and chronic small vessel ischemic changes. No other acute findings were noted. He has not shown any significant improvement in his overall mental status today. This patient's overall prognosis at this time remains very guarded. He has evidence of a severe anoxic encephalopathy following cardiac arrest. We will await further recommendations from multiple specialists that are seeing this patient. His long-term prognosis at this time is very poor. Objective - Vital Signs Vital signs: Vital Signs Temp 98.4 F 08/01/16 16:00 Pulse 104 H 08/01/16 19:36 Resp 13 08/01/16 18:00 BP 141/66 08/01/16 18:00 Pulse Ox 100 08/01/16 18:00 Intake & Output 08/01/16 08/01/16 08/02/16 06:59 18:59 06:59 Intake Total 855 680 Output Total 325 4485 Balance 530 -3805 Weight 62.3 kg 62.3 kg Intake: IV 675 660 Dextrose 5%-0.9% NaCl 1, 575 600 000 ml @ 50 mls/hr IV . Q20H [facility] Rx#:[id number] Sodium Chloride 0.9% 1, 100 60 000 ml @ 80 mls/hr IV . [id number] [facility] Rx#:[id number] Tube Feeding 180 20 Output: Urine 325 905 Other 3580 Other: Voiding Method Indwelling Catheter Indwelling Catheter # Bowel Movements 0 - Exam Physical examination: PHYSICAL EXAMINATION: Patient is resting comfortably in bed. VITAL SIGNS: Blood pressure is [141/67]. Heart rate is [107]. Respiration is [14 ]. Temperature is [98.4]. HEENT: Head is atraumatic, neck is supple, there were no carotid bruits. CHEST: Lungs are clear to auscultation and percussion. CARDIAC: S1, S2 normal rate and rhythm. There is no murmur. ABDOMEN: Soft and nontender. Bowel sounds are present. EXTREMITIES: There is no pedal edema. Peripheral pulses are present. Neurological examination: Patient remains encephalopathic and unresponsive. - Labs CBC & Chem 7: 08/01/16 04:51 08/01/16 04:51 Labs: Abnormal Lab Results - Last 24 Hours (Table) 07/31/16 07/31/16 07/31/16 Range/Units 19:50 20:15 20:29 RBC (4.30-5.90) m/uL Hgb (13.0-17.5) gm/dL Hct (39.0-53.0) % RDW (11.5-15.5) % ABG pH 7.58 H (7.35-7.45) ABG pCO2 31 L (35-45) mmHg ABG HCO3 29 H (21-25) mmol/L ABG Total CO2 30 H (19-24) mmol/L ABG O2 Saturation 98.0 H (94-97) % Sodium (137-145) mmol/L BUN (9-20) mg/dL Creatinine (0.66-1.25) mg/dL Glucose (74-99) mg/dL POC Glucose (mg/dL) 54 L 44 L (75-99) mg/dL 07/31/16 07/31/16 07/31/16 Range/Units 20:59 22:15 22:48 RBC (4.30-5.90) m/uL Hgb (13.0-17.5) gm/dL Hct (39.0-53.0) % RDW (11.5-15.5) % ABG pH (7.35-7.45) ABG pCO2 (35-45) mmHg ABG HCO3 (21-25) mmol/L ABG Total CO2 (19-24) mmol/L ABG O2 Saturation (94-97) % Sodium (137-145) mmol/L BUN (9-20) mg/dL Creatinine (0.66-1.25) mg/dL Glucose (74-99) mg/dL POC Glucose (mg/dL) 163 H 55 L 49 L (75-99) mg/dL 07/31/16 07/31/16 08/01/16 Range/Units 23:10 23:28 00:06 RBC (4.30-5.90) m/uL Hgb (13.0-17.5) gm/dL Hct (39.0-53.0) % RDW (11.5-15.5) % ABG pH (7.35-7.45) ABG pCO2 (35-45) mmHg ABG HCO3 (21-25) mmol/L ABG Total CO2 (19-24) mmol/L ABG O2 Saturation (94-97) % Sodium (137-145) mmol/L BUN (9-20) mg/dL Creatinine (0.66-1.25) mg/dL Glucose (74-99) mg/dL POC Glucose (mg/dL) 58 L 155 H 117 H (75-99) mg/dL 08/01/16 08/01/16 08/01/16 Range/Units 01:12 04:51 04:51 RBC 2.93 L (4.30-5.90) m/uL Hgb 9.5 L (13.0-17.5) gm/dL Hct 28.6 L (39.0-53.0) % RDW 15.9 H (11.5-15.5) % ABG pH (7.35-7.45) ABG pCO2 (35-45) mmHg ABG HCO3 (21-25) mmol/L ABG Total CO2 (19-24) mmol/L ABG O2 Saturation (94-97) % Sodium 136 L (137-145) mmol/L BUN 46 H (9-20) mg/dL Creatinine 4.10 H (0.66-1.25) mg/dL Glucose 160 H (74-99) mg/dL POC Glucose (mg/dL) 122 H (75-99) mg/dL 08/01/16 08/01/16 08/01/16 Range/Units 05:41 08:37 11:38 RBC (4.30-5.90) m/uL Hgb (13.0-17.5) gm/dL Hct (39.0-53.0) % RDW (11.5-15.5) % ABG pH (7.35-7.45) ABG pCO2 (35-45) mmHg ABG HCO3 (21-25) mmol/L ABG Total CO2 (19-24) mmol/L ABG O2 Saturation (94-97) % Sodium (137-145) mmol/L BUN (9-20) mg/dL Creatinine (0.66-1.25) mg/dL Glucose (74-99) mg/dL POC Glucose (mg/dL) 188 H 265 H 203 H (75-99) mg/dL Microbiology - Last 24 Hours (Table) 07/31/16 02:00 Urine Culture - Final Urine,Catheterized 07/30/16 21:22 Gram Stain - Preliminary Sputum Sputum Culture - Preliminary Gram Neg Bacilli Assessment and Plan (1) Anoxic encephalopathy Status: Acute Code(s): G93.1 - ANOXIC BRAIN DAMAGE, NOT ELSEWHERE CLASSIFIED (2) Cardiac arrest Status: Acute Code(s): I46.9 - CARDIAC ARREST, CAUSE UNSPECIFIED (3) Chronic renal failure Status: Acute Code(s): N18.9 - CHRONIC KIDNEY DISEASE, UNSPECIFIED (4) Coma Status: Acute Code(s): R40.20 - UNSPECIFIED COMA Plan: This patient is a 50-year-old male who suffered a witnessed cardiac arrest and was intubated on the scene and transferred to the [facility]. Patient remains obtunded in the intensive care unit. He extubated himself yesterday but shows no signs of improvement in his overall mental status. He underwent routine EEG today which was reviewed and is severely abnormal with diffuse slowing and early burst suppression changes. We have recommended to load the patient with IV levetiracetam today and repeat a EEG tomorrow. He underwent a computed tomography scan of the brain today which revealed atrophy and chronic small vessel ischemic changes. No evidence of acute stroke or hemorrhage. We will obtain a follow-up EEG tomorrow to see if there is any significant improvement. Would recommend a family meeting to discuss his further treatment options. Based on his EEG performed today it is consistent with a severe anoxic encephalopathy following cardiac arrest. His overall prognosis at this time remains very guarded. We will continue close neurological follow-up with the patient in the intensive care unit.
[2016-08-01] MEDS: levETIRAcetam IV 750 MG in SODIUM CHLORIDE 0.9% 100 ML IVPB SCH (21:02)
[2016-08-02] MEDS: HEPARIN SODIUM,PORCINE 5,000 UNIT/ML 1 ML VIAL SQ SCH ×3 (00:24→17:53)
[2016-08-02] MEDS: INSULIN LISPRO (humaLOG) 300 UNIT/3 ML VIAL SQ SCH ×4 (00:26→17:58)
[2016-08-02 00:28] LABS: Glucose,Whole Blood 167 mg/dL (75-99)
[2016-08-02 04:50] LABS: CH 32.2; CHCM 33.4; HCT 30.4 % (39.0-53.0); HDW 2.76; HGB 10.2 gm/dL (13.0-17.5); MCH 32.3 pg (25.0-35.0); MCHC 33.4 g/dL (31.0-37.0); MCV 96.7 fL (80.0-100.0); Macrocytosis Slight; Mean Platelet Volume 7.5; RBC 3.14 m/uL (4.30-5.90); RDW 15.7 % (11.5-15.5)
[2016-08-02 05:27] LABS: Calcium 9.2 mg/dL (8.4-10.2); Magnesium 2.1 mg/dL (1.6-2.3); Phosphorous 5.1 mg/dL (2.5-4.5); Potassium 4.3 mmol/L (3.5-5.1)
[2016-08-02] MEDS: PANTOPRAZOLE 40 MG/10 ML VIAL IV SCH ×2 (07:34→20:21)
[2016-08-02] MEDS: INSULIN DETEMIR 100 UNIT/ML 10 ML VIAL SQ SCH (07:47)
--- NOTE | 2016-08-02 07:57 | XR ---
EXAMINATION TYPE: XR chest 1V DATE OF EXAM: 08/02/2016 HISTORY: Shortness of breath. COMPARISON: August 01, 2016 TECHNIQUE: Single view of the chest is submitted. FINDINGS: Demonstrated are scattered senescent parenchymal change. Persistent but improving right lower lobe infiltrate. Additional scattered reticulonodular infiltrate s persist. NG tube is seen coursing to the stomach. The heart is stable. Hilar and mediastinal structures are within normal limits. Degenerative changes are seen of the dorsal spine. IMPRESSION: 1. Persistent but improving right lower lobe infiltrate. 2. Scattered reticulonodular infiltrates persist which may reflect superimposed congestive failure.
[2016-08-02] MEDS: IPRATROPIUM-ALBUTEROL 3 ML NEB INHALATION SCH ×4 (08:17→20:28)
--- NOTE | 2016-08-02 08:19 | EEG ---
DATE OF SERVICE: 08/01/2016 INDICATIONS FOR EXAMINATION: This patient is a 50 -year-old male who suffered a witnessed cardiac arrest. The patient remains intubated on the ventilator and is unresponsive. AGE: 50Y EEG FINDINGS: A routine 21 channel awake digital EEG recording was accomplished utilizing the 10-20 international system with bipolar and referential montages. The background activity in the most alert resting state consists of a medium amplitude poorly developed and poorly sustained 2-3 Hz activity over the posterior head regions. This posterior rhythm attenuates minimally to eye opening. There is a moderate amount of low amplitude 18-20 Hz beta activity seen maximally over the anterior head regions. Muscle and movement artifact was observed on several occasions during the tracing. Hyperventilation was not performed. Photic stimulation at flash frequencies of 2-30 Hz produced a minimal occipital driving response. Towards the mid and lateral portion of the tracing, the patient does show evidence of early burst suppression pattern. Some sharp wave activity was noted intermittently throughout the entire tracing. IMPRESSION: This EEG gives evidence of a severe widespread disturbance in cerebral function. The EEG pattern also reveals early burst suppression pattern. If clinically indicated, a follow-up EEG is recommended. These findings are consistent with severe anoxic encephalopathy. Clinical correlation is recommended.
[2016-08-02] MEDS: levETIRAcetam IV 750 MG in SODIUM CHLORIDE 0.9% 100 ML IVPB SCH ×2 (08:21→20:21)
[2016-08-02] MEDS: PIPERACILLIN-TAZOBACTAM 3.375 GM in DEXTROSE/WATER 1 50ML.BAG IVPB SCH ×2 (08:21→20:21)
--- NOTE | 2016-08-02 09:15 | P.PN ---
Subjective Principal diagnosis: This is a 50-year-old male with ESRD on dialysis Thursday where a cardiac arrest after he choked on some food. He has been off of the ventilator after self extubating himself but is obtunded and unresponsive. He is currently on tube feeding. He is not responding at all. He moans and groans. EEG has been done and repeat EEG is pending echocardiogram reveals 55-60% ejection fraction and mild valvular dysfunction. Computed tomography scan of the brain was rather unremarkable except for chronic ischemic changes. Objective - Vital Signs Vital signs: Vital Signs Temp 100 F H 08/02/16 08:00 Pulse 116 H 08/02/16 08:30 Resp 18 08/02/16 08:00 BP 171/92 08/02/16 08:00 Pulse Ox 94 L 08/02/16 08:00 Intake & Output 08/01/16 08/02/16 08/02/16 18:59 06:59 18:59 Intake Total 680 780 240 Output Total 4485 360 65 Balance -3805 420 175 Weight 62.3 kg 58.2 kg Intake: IV 660 600 100 Dextrose 5%-0.9% NaCl 1, 600 600 100 000 ml @ 50 mls/hr IV . Q20H [facility] Rx#:[id number] Sodium Chloride 0.9% 1, 60 000 ml @ 80 mls/hr IV . [id number] [facility] Rx#:[id number] Intake, IV Titration 100 Amount levETIRAcetam IV 750 mg 100 In Sodium Chloride 0.9% 100 ml @ 400 mls/hr IVPB Q12HR [facility] Rx#:[id number] Tube Feeding 20 180 40 Output: Urine 905 360 65 Other 3580 Other: Voiding Method Indwelling Catheter Indwelling Catheter Indwelling Catheter # Bowel Movements 0 0 On examination is obtunded moans and groans but does not follow commands, does not open eyes, does not respond to pain. HEENT exam no JVP neck is supple His cornea is somewhat scarred on the right and on the left and pupils are about 3 mm. Lungs are clear to auscultation except for coarse crackles and some throat secretions. Fair air entry bilaterally Heart sounds are unremarkable is in normal sinus rhythm Abdomen is soft no organomegaly ascites masses Extremity exam was no edema Neurologically obtunded unresponsive to pain. - Labs CBC & Chem 7: 08/02/16 04:37 08/02/16 04:37 Labs: Abnormal Lab Results - Last 24 Hours (Table) 08/01/16 08/02/16 08/02/16 Range/Units 11:38 00:26 04:37 RBC 3.14 L (4.30-5.90) m/uL Hgb 10.2 L (13.0-17.5) gm/dL Hct 30.4 L (39.0-53.0) % RDW 15.7 H (11.5-15.5) % Sodium (137-145) mmol/L Carbon Dioxide (22-30) mmol/L BUN (9-20) mg/dL Creatinine (0.66-1.25) mg/dL Glucose (74-99) mg/dL POC Glucose (mg/dL) 203 H 167 H (75-99) mg/dL Phosphorus (2.5-4.5) mg/dL 08/02/16 Range/Units 04:37 RBC (4.30-5.90) m/uL Hgb (13.0-17.5) gm/dL Hct (39.0-53.0) % RDW (11.5-15.5) % Sodium 135 L (137-145) mmol/L Carbon Dioxide 21 L (22-30) mmol/L BUN 34 H (9-20) mg/dL Creatinine 3.40 H (0.66-1.25) mg/dL Glucose 205 H (74-99) mg/dL POC Glucose (mg/dL) (75-99) mg/dL Phosphorus 5.1 H (2.5-4.5) mg/dL Microbiology - Last 24 Hours (Table) 07/30/16 21:22 Gram Stain - Final Sputum Sputum Culture - Final Escherichia coli 07/31/16 02:00 Urine Culture - Final Urine,Catheterized Assessment and Plan Plan: Impression 1. ESRD on dialysis Thursday dialyzed yesterday Thursday. 2. Status post cardiac arrest after choking on food with obtundation, without any response to pain. 3. On room air. 4. On NG feeding 5. Diabetes mellitus type 1. 6. Anemia of ESRD hemoglobin at target 10.2 7. Calcium and phosphorous within range 9.2 and 5.1 respectively. 8. That clear slightly high 171-197 but because of the obtundation will maintain a slightly high Recommendation. No changes from a nephrological perspective. We will wait for the neurologist to make the determination for his prognosis from the comatose state.
--- NOTE | 2016-08-02 10:51 | P.PN ---
Subjective This is a 50-6/2: year-old male with a previous medical history significant for hypertension and hypertensive cardiovascular disease, hyperlipidemia, diabetes mellitus type 1, end-stage renal disease on hemodialysis, patient has not been under my care for the past 2 years apparently he was at medical [facility] and apparently was released from there after he was assigned a public guardian currently lives in a [facility] area with his , apparently patient was just released from [facility] few days ago after he was admitted to [facility] due to Intraventricular hemorrhage of both occipital horns and was seen at [facility] then. Patient apparently was eating a Bologna sandwich at home when he chocked on on it and he became unresponsive and went into cardiac and respiratory arrest that was witnessed for 5-7 mins and CPR was staerted and he was intubated on the scene and was transported to the ER at [facility] and had Ct scan that showed ischemic changes without IVH or intracranial bleed, CXR showed aspiration pneumonia, not sure if patient went for dialysis today and patient will be seen by Pulmonary . 08/01: Patient is followed by multiple consultants including cardiology, records management clerk, neurology. EEG is pending. Echocardiogram reveals EF of 55-60%, mild mitral regurgitation, trace tricuspid regurgitation. Repeat computed tomography scan of the brain showed stable atrophic and chronic small vessel ischemic change without acute intracranial process. Patient is not responsive. He self extubated yesterday. Pulse ox is running 97% on room air. He has been afebrile. 08/02: [facility] CAT scan of the brain shows atrophy and chronic small vessel ischemic change with no evidence of acute stroke or hemorrhage. EEG from yesterday shows early burst suppression pattern consistent with severe anoxic encephalopathy. Repeat EEG is scheduled for today. Discussed patient's prognosis on the phone with the patient's . Patient was made no code last evening as he was having Mega-Lin breathing. Patient does have a public guardian that made this decision. Objective - Vital Signs Vital signs: Vital Signs Temp 99 F 08/02/16 00:00 Pulse 111 H 08/02/16 07:53 Resp 12 08/02/16 07:53 BP 197/98 08/02/16 07:00 Pulse Ox 96 08/02/16 07:00 Intake & Output 08/01/16 08/02/16 08/02/16 18:59 06:59 18:59 Intake Total 680 780 240 Output Total 4485 360 65 Balance -3805 420 175 Weight 62.3 kg 58.2 kg Intake: IV 660 600 100 Dextrose 5%-0.9% NaCl 1, 600 600 100 000 ml @ 50 mls/hr IV . Q20H KESHIA Rx#:[id number] Sodium Chloride 0.9% 1, 60 000 ml @ 80 mls/hr IV . [id number] KESHIA Rx#:[id number] Intake, IV Titration 100 Amount levETIRAcetam IV 750 mg 100 In Sodium Chloride 0.9% 100 ml @ 400 mls/hr IVPB Q12HR KESHIA Rx#:[id number] Tube Feeding 20 180 40 Output: Urine 905 360 65 Other 3580 Other: Voiding Method Indwelling Catheter Indwelling Catheter Indwelling Catheter # Bowel Movements 0 0 - Exam General appearance: average body habitus, no distress - EENT Eyes: abnormal pupil, poor dentition, ptosis ENT: NA/AT, no thrush Ears: bilateral: normal - Neck Neck: no lymphadenopathy, normal ROM, no rigidity, no stridor, no thyromegaly Carotids: bilateral: upstroke delayed Thyroid: bilateral: normal size - Respiratory Respiratory: bilateral: diminished, dullness, rales, rhonchi, wheezing, prolonged expiration - Cardiovascular Rhythm: regular Heart sounds: normal: S1, S2 Abnormal Heart Sounds: systolic murmur, no diastolic murmur, no rub, S3 Gallop, no click - Gastrointestinal General gastrointestinal: decreased bowel sounds, soft, no tenderness, no ventral hernia - Integumentary Integumentary: normal, normal turgor - Neurologic Neurologic: CNII-XII intact - Musculoskeletal Musculoskeletal: generalized weakness - Psychiatric Psychiatric: no A&O x's 3, no appropriate affect, no intact judgment & insight - Labs CBC & Chem 7: 08/02/16 04:37 08/02/16 04:37 Labs: Abnormal Lab Results - Last 24 Hours (Table) 08/01/16 08/01/16 08/02/16 Range/Units 08:37 11:38 00:26 RBC (4.30-5.90) m/uL Hgb (13.0-17.5) gm/dL Hct (39.0-53.0) % RDW (11.5-15.5) % Sodium (137-145) mmol/L Carbon Dioxide (22-30) mmol/L BUN (9-20) mg/dL Creatinine (0.66-1.25) mg/dL Glucose (74-99) mg/dL POC Glucose (mg/dL) 265 H 203 H 167 H (75-99) mg/dL Phosphorus (2.5-4.5) mg/dL 08/02/16 08/02/16 Range/Units 04:37 04:37 RBC 3.14 L (4.30-5.90) m/uL Hgb 10.2 L (13.0-17.5) gm/dL Hct 30.4 L (39.0-53.0) % RDW 15.7 H (11.5-15.5) % Sodium 135 L (137-145) mmol/L Carbon Dioxide 21 L (22-30) mmol/L BUN 34 H (9-20) mg/dL Creatinine 3.40 H (0.66-1.25) mg/dL Glucose 205 H (74-99) mg/dL POC Glucose (mg/dL) (75-99) mg/dL Phosphorus 5.1 H (2.5-4.5) mg/dL Microbiology - Last 24 Hours (Table) 07/31/16 02:00 Urine Culture - Final Urine,Catheterized 07/30/16 21:22 Gram Stain - Preliminary Sputum Sputum Culture - Preliminary Gram Neg Bacilli Assessment and Plan Plan: 1. Acute Hypoxemic vent-Dependent respiratory failure with respiratory and cardiac arrest due to aspiration pneumonia.self extubated. Followed by , aggresive pulmonary toileting with Albuterol 2.5 mg nebulization QID and Pulmicort 1 ng Nebulization BID, will continue Zosyn ,blood cultures and sputum cultures,monitor ABGs and lactic acid.monitor CXR. 2. Lingular Pneumonia. Zosyn 2.25 g IV piggyback every 8 hours, obtain sputum culture, continue nebulized treatment Duoneb 3 ml QID and pulmicort 1 mg nebulization BID. 3. Hypertension and hypertensive cardiovascular disease . Continue labetalol and clonidine patch 4. Anoxic encephalopathy. Neurology is following. EEG to be repeated. 5. Diabetes mellitus type 1. resume Levemir and Humalog pe SSI. 6. History of TIA/CVA. Stable. 7. End-stage renal disease on hemodialysis. Consult nephrology for urgent hemodialysis. 8. Chronic low back pain with chronic pain syndrome. Continue Austin 10/325 mg orally QID prn. 9. DVT prophylaxis. Continue Lovenox 40 mg subcutaneously every 24 hours. 10. GI prophylaxis. Continue Protonix 40 mg orally once every day. 11. Anemia of renal disease. Monitor CBC. Prognosis guarded. Impression and plan of care have been directed as dictated by the signing physician. Erlinda Vidales nurse practitioner acting as scribe for signing physician.
--- NOTE | 2016-08-02 11:47 | P.PN ---
Subjective Principal diagnosis: Aspiration, cardiac arrest This is a 50-year-old gentleman who who aspirated on a bologna sandwich. He became unresponsive and was initiated on CPR by the family members in the outpatient setting. When EMS arrived they continued CPR intubated the patient in the field and he developed return of spontaneous circulation. It is unclear as to how long the patient was down for. He has sustained suspected anoxic brain injury. His mental status is quite poor. He is unresponsive at this point. An EEG shows evidence of severe widespread disturbance in cerebral function. This is consistent with severe anoxic encephalopathy. The patient is now a DO NOT RESUSCITATE/DO NOT INTUBATE CODE STATUS. His sputum is positive for E. coli. His renal function is improving currently at 3.40. He is maintaining O2 saturations in the upper 90s on room air. He's been hemodynamically stable. Temperature 100.0. White count 10.0. Hemoglobin 10.2. Objective - Vital Signs Vital signs: Vital Signs Temp 100 F H 08/02/16 08:00 Pulse 108 H 08/02/16 10:00 Resp 11 L 08/02/16 10:00 BP 171/92 08/02/16 10:00 Pulse Ox 98 08/02/16 10:00 Intake & Output 08/01/16 08/02/16 08/02/16 18:59 06:59 18:59 Intake Total 680 780 260 Output Total 4485 360 65 Balance -3805 420 195 Weight 62.3 kg 58.2 kg Intake: IV 660 600 100 Dextrose 5%-0.9% NaCl 1, 600 600 100 000 ml @ 50 mls/hr IV . Q20H KESHIA Rx#:[id number] Sodium Chloride 0.9% 1, 60 000 ml @ 80 mls/hr IV . [id number] KESHIA Rx#:[id number] Intake, IV Titration 100 Amount levETIRAcetam IV 750 mg 100 In Sodium Chloride 0.9% 100 ml @ 400 mls/hr IVPB Q12HR KESHIA Rx#:[id number] Tube Feeding 20 180 60 Output: Urine 905 360 65 Other 3580 Other: Voiding Method Indwelling Catheter Indwelling Catheter Indwelling Catheter # Bowel Movements 0 0 - Exam GENERAL EXAM: Obtunded, unresponsive.. HEAD: Normocephalic. EYES: equal size. NOSE: Clear with pink turbinates. THROAT: No erythema or exudates. NECK: No masses, no JVD. CHEST: No chest wall deformity. LUNGS: Equal air entry with few scattered rhonchi.. CVS: S1 and S2 normal with no audible murmurs, regular rhythm. ABDOMEN: Soft, normal bowel sounds, no guarding or rigidity. Extremities: There is trace peripheral edema. No clubbing, no cyanosis. Peripheral pulses are intact. - Labs CBC & Chem 7: 08/02/16 04:37 08/02/16 04:37 Labs: Abnormal Lab Results - Last 24 Hours (Table) 08/01/16 08/02/16 08/02/16 Range/Units 11:38 00:26 04:37 RBC 3.14 L (4.30-5.90) m/uL Hgb 10.2 L (13.0-17.5) gm/dL Hct 30.4 L (39.0-53.0) % RDW 15.7 H (11.5-15.5) % Sodium (137-145) mmol/L Carbon Dioxide (22-30) mmol/L BUN (9-20) mg/dL Creatinine (0.66-1.25) mg/dL Glucose (74-99) mg/dL POC Glucose (mg/dL) 203 H 167 H (75-99) mg/dL Phosphorus (2.5-4.5) mg/dL 08/02/16 Range/Units 04:37 RBC (4.30-5.90) m/uL Hgb (13.0-17.5) gm/dL Hct (39.0-53.0) % RDW (11.5-15.5) % Sodium 135 L (137-145) mmol/L Carbon Dioxide 21 L (22-30) mmol/L BUN 34 H (9-20) mg/dL Creatinine 3.40 H (0.66-1.25) mg/dL Glucose 205 H (74-99) mg/dL POC Glucose (mg/dL) (75-99) mg/dL Phosphorus 5.1 H (2.5-4.5) mg/dL Microbiology - Last 24 Hours (Table) 07/30/16 21:22 Gram Stain - Final Sputum Sputum Culture - Final Escherichia coli 07/31/16 02:00 Urine Culture - Final Urine,Catheterized Assessment and Plan Plan: Impression: #1 Acute hypoxic respiratory failure secondary to aspiration pneumonia and cardiopulmonary arrest with return of spontaneous circulation. Sputum positive for E. coli. #2 Acute anoxic encephalopathy secondary to above. #3 History of end-stage renal disease receiving hemodialysis 3 times a week. #4 History of diabetes mellitus with end organ involvement. #5 Gastroesophageal reflux disease. #6 Hypertension. #7 Hyperlipidemia. #8 Degenerative joint disease. #9 Diabetic retinopathy with blindness. #10 Diabetic neuropathy. #11 Previous methicillin-resistant Staphylococcus aureus infection and removal of port. #12 Poor overall functional performance based on the above-mentioned multiple comorbidities. Plan: The patient was seen and evaluated by Dr. Woods. The patient is now a DO NOT RESUSCITATE/DO NOT INTUBATE CODE STATUS. His overall prognosis is quite poor. He'll be transferred out of the intensive care unit today. We will continue to follow. Time with Patient: Greater than 30
[2016-08-02 12:53] LABS: Glucose,Whole Blood 276 mg/dL (75-99)
[2016-08-02] MEDS: DEXTROSE 5%-0.9% NACL 1,000 ML IV SCH (15:17)
--- NOTE | 2016-08-02 17:56 | P.PN ---
Subjective This patient is a 50-year-old male who is evaluated today in the intensive care unit after suffering cardiac arrest. Patient self extubated himself yesterday. He remains off the ventilator today. The patient remains essentially obtunded and stuporous. He has only occasional movements noted by the ICU nursing staff. Patient underwent routine EEG today which is reviewed. EEG is severely slow and consistent with severe anoxic encephalopathy. There is also early sign for burst suppression pattern. Some sharp wave activity was noted. We are recommending to place the patient on IV Keppra for further management. Patient is status post cardiac arrest and is being followed closely by cardiology. Patient has a known history of severe cardiovascular hypertensive disease. He has end-stage renal disease as well and is on hemodialysis. We will try to obtain a follow-up EEG tomorrow after he is loaded with anticonvulsant medication tonight. We will recheck to see if there is any significant changes in his EEG background. He underwent a computed tomography scan of the brain today which revealed atrophy and chronic small vessel ischemic changes. No other acute findings were noted. He has not shown any significant improvement in his overall mental status today. This patient's overall prognosis at this time remains very guarded. He has evidence of a severe anoxic encephalopathy following cardiac arrest. Apparently last night the patient developed some Mega-Lin breathing pattern. His public guardian was contacted by Dr. Woods and the patient was made a NO CODE STATUS. This morning it was decided to discontinue the EEG follow-up as a patient has a very poor prognosis. He is to be transferred out of the ICU and will continue with supportive care. His sputum does show E. coli. His renal function is still poor but slightly improved. He has not been responding to pain. He essentially remains comatose. Apparently family is considering hospice care for this patient. He shouldn't was examined on the medical floor today. Nephew was at bedside and he was updated on this patient's poor prognosis. We will await further recommendations from the multiple specialists that are seeing this patient. We will await further recommendations from multiple specialists that are seeing this patient. His long-term prognosis at this time is very poor. We will continue close neurological follow-up for the patient during this admission. Objective - Vital Signs Vital signs: Vital Signs Temp 100 F H 08/02/16 08:00 Pulse 110 H 08/02/16 11:45 Resp 11 L 06/03/17 10:00 BP 171/92 08/02/16 10:00 Pulse Ox 98 08/02/16 10:00 Intake & Output 08/01/16 08/02/16 08/02/16 18:59 06:59 18:59 Intake Total 680 780 280 Output Total 4485 360 65 Balance -3805 420 215 Weight 62.3 kg 58.2 kg Intake: IV 660 600 100 Dextrose 5%-0.9% NaCl 1, 600 600 100 000 ml @ 50 mls/hr IV . Q20H KESHIA Rx#:[id number] Sodium Chloride 0.9% 1, 60 000 ml @ 80 mls/hr IV . [id number] KESHIA Rx#:[id number] Intake, IV Titration 100 Amount levETIRAcetam IV 750 mg 100 In Sodium Chloride 0.9% 100 ml @ 400 mls/hr IVPB Q12HR KESHIA Rx#:[id number] Tube Feeding 20 180 80 Output: Urine 905 360 65 Other 3580 Other: Voiding Method Indwelling Catheter Indwelling Catheter Indwelling Catheter # Bowel Movements 0 0 - Exam Physical examination: PHYSICAL EXAMINATION: Patient is resting comfortably in bed. VITAL SIGNS: Blood pressure is [171/96]. Heart rate is [107]. Respiration is [12 ]. Temperature is [100]. HEENT: Head is atraumatic, neck is supple, there were no carotid bruits. CHEST: Lungs are clear to auscultation and percussion. CARDIAC: S1, S2 normal rate and rhythm. There is no murmur. ABDOMEN: Soft and nontender. Bowel sounds are present. EXTREMITIES: There is no pedal edema. Peripheral pulses are present. Neurological examination: Patient remains encephalopathic and unresponsive. Patient has Mega-Lin- like breathing pattern at this time. He remains comatose and unresponsive. There is been no significant improvement in his neurological condition since yesterday. - Labs CBC & Chem 7: 08/02/16 04:37 08/02/16 04:37 Labs: Abnormal Lab Results - Last 24 Hours (Table) 08/02/16 08/02/16 08/02/16 Range/Units 00:26 04:37 04:37 RBC 3.14 L (4.30-5.90) m/uL Hgb 10.2 L (13.0-17.5) gm/dL Hct 30.4 L (39.0-53.0) % RDW 15.7 H (11.5-15.5) % Sodium 135 L (137-145) mmol/L Carbon Dioxide 21 L (22-30) mmol/L BUN 34 H (9-20) mg/dL Creatinine 3.40 H (0.66-1.25) mg/dL Glucose 205 H (74-99) mg/dL POC Glucose (mg/dL) 167 H (75-99) mg/dL Phosphorus 5.1 H (2.5-4.5) mg/dL 08/02/16 Range/Units 12:41 RBC (4.30-5.90) m/uL Hgb (13.0-17.5) gm/dL Hct (39.0-53.0) % RDW (11.5-15.5) % Sodium (137-145) mmol/L Carbon Dioxide (22-30) mmol/L BUN (9-20) mg/dL Creatinine (0.66-1.25) mg/dL Glucose (74-99) mg/dL POC Glucose (mg/dL) 276 H (75-99) mg/dL Phosphorus (2.5-4.5) mg/dL Microbiology - Last 24 Hours (Table) 07/30/16 21:22 Gram Stain - Final Sputum Sputum Culture - Final Escherichia coli 07/31/16 02:00 Urine Culture - Final Urine,Catheterized Assessment and Plan (1) Anoxic encephalopathy Status: Acute Code(s): G93.1 - ANOXIC BRAIN DAMAGE, NOT ELSEWHERE CLASSIFIED (2) Cardiac arrest Status: Acute Code(s): I46.9 - CARDIAC ARREST, CAUSE UNSPECIFIED (3) Chronic renal failure Status: Acute Code(s): N18.9 - CHRONIC KIDNEY DISEASE, UNSPECIFIED (4) Coma Status: Acute Code(s): R40.20 - UNSPECIFIED COMA Plan: This patient is a 50-year-old male who was at home and choke while eating a sandwich. He became unresponsive and went into full cardiac arrest. His downtime is unknown but estimated to be over 7-10 minutes. He was intubated and brought into the hospital and subsequently transferred to the intensive care unit. He underwent a computed tomography scan of the brain which fails to reveal any evidence of acute stroke or hemorrhage. His initial EEG revealed severe slowing consistent with a severe anoxic encephalopathy following cardiac arrest. He was started on Keppra yesterday due to some sharp wave activity seen throughout the tracing. Yesterday evening the patient's public guardian made him a NO CODE STATUS. His EEG that was scheduled for this morning but was canceled as his prognosis is very poor. He was transferred out of the intensive care unit and to continue with supportive care. Apparently family is considering hospice care for the patient. The patient essentially remains comatose. Patient is examined on the medical floor today. Patient's nephew was at bedside today. We updated him on his overall neurological status and poor prognosis. We will await further recommendations for multiple specialists seeing this patient. His overall prognosis continues to remain very poor. We will continue to follow with several other specialists with this patient. As noted his overall prognosis is very poor. Case was discussed today with the patient's nephew at bedside and all of his questions were answered. We will continue close neurological follow-up for this patient.
[2016-08-02 18:09] LABS: Glucose,Whole Blood 200 mg/dL (75-99)
[2016-08-03] MEDS: HEPARIN SODIUM,PORCINE 5,000 UNIT/ML 1 ML VIAL SQ SCH ×2 (00:26→08:11)
[2016-08-03 00:29] LABS: Glucose,Whole Blood 280 mg/dL (75-99)
[2016-08-03] MEDS: INSULIN LISPRO (humaLOG) 300 UNIT/3 ML VIAL SQ SCH ×2 (00:31→06:26)
[2016-08-03 06:26] LABS: Glucose,Whole Blood 491 mg/dL (75-99)
[2016-08-03] MEDS: IPRATROPIUM-ALBUTEROL 3 ML NEB INHALATION SCH ×2 (06:52→11:01)
[2016-08-03 07:25] LABS: CH 31.4; CHCM 31.6; HDW 2.58; HGB 10.6 gm/dL (13.0-17.5); Hypochromasia Slight; MCH 32.1 pg (25.0-35.0); MCHC 32.1 g/dL (31.0-37.0); MCV 99.8 fL (80.0-100.0); Macrocytosis Slight; RDW 15.5 % (11.5-15.5); WBC 12.4 k/uL (3.8-10.6)
[2016-08-03 07:34] LABS: Calcium 8.9 mg/dL (8.4-10.2); Magnesium 2.2 mg/dL (1.6-2.3); Phosphorous 4.8 mg/dL (2.5-4.5); Potassium 4.5 mmol/L (3.5-5.1)
[2016-08-03 07:52] VITALS: BP 187/83; TEMP 98.4
[2016-08-03] MEDS: DEXTROSE 5%-0.9% NACL 1,000 ML IV SCH (08:08)
[2016-08-03] MEDS: levETIRAcetam IV 750 MG in SODIUM CHLORIDE 0.9% 100 ML IVPB SCH (08:10)
[2016-08-03] MEDS: PANTOPRAZOLE 40 MG/10 ML VIAL IV SCH (08:10)
[2016-08-03] MEDS: PIPERACILLIN-TAZOBACTAM 3.375 GM in DEXTROSE/WATER 1 50ML.BAG IVPB SCH (08:10)
[2016-08-03] MEDS: INSULIN DETEMIR 100 UNIT/ML 10 ML VIAL SQ SCH (08:25)
--- NOTE | 2016-08-03 09:21 | P.PN ---
Subjective This is a 50-/2: year-old male with a previous medical history significant for hypertension and hypertensive cardiovascular disease, hyperlipidemia, diabetes mellitus type 1, end-stage renal disease on hemodialysis, patient has not been under my care for the past 2 years apparently he was at medical [facility] and apparently was released from there after he was assigned a public guardian currently lives in a [facility] area with his , apparently patient was just released from [facility] few days ago after he was admitted to [facility] due to Intraventricular hemorrhage of both occipital horns and was seen at [facility] then. Patient apparently was eating a Bologna sandwich at home when he chocked on on it and he became unresponsive and went into cardiac and respiratory arrest that was witnessed for 5-7 mins and CPR was staerted and he was intubated on the scene and was transported to the ER at [facility] and had Ct scan that showed ischemic changes without IVH or intracranial bleed, CXR showed aspiration pneumonia, not sure if patient went for dialysis today and patient will be seen by Pulmonary . 08/01: Patient is followed by multiple consultants including cardiology, caddy packer, neurology. EEG is pending. Echocardiogram reveals EF of 55-60%, mild mitral regurgitation, trace tricuspid regurgitation. Repeat computed tomography scan of the brain showed stable atrophic and chronic small vessel ischemic change without acute intracranial process. Patient is not responsive. He self extubated yesterday. Pulse ox is running 97% on room air. He has been afebrile. 08/02: Dr. Lafleur has recommended Keppra. CAT scan of the brain shows atrophy and chronic small vessel ischemic change with no evidence of acute stroke or hemorrhage. EEG from yesterday shows early burst suppression pattern consistent with severe anoxic encephalopathy. Repeat EEG is scheduled for today. Discussed patient's prognosis on the phone with the patient's . Patient was made no code last evening as he was having Mega-Lin breathing. Patient does have a public guardian that made this decision. 08/03: [facility] He is continued on hemodialysis Thursday, Thursday, Thursday. He is on IV Keppra and IV Zosyn. Patient remains unresponsive and meeting with guardian is to take place on Thursday regarding further plans. Objective - Vital Signs Vital signs: Vital Signs Temp 100.8 F H 08/02/16 22:32 Pulse 124 H 08/03/16 07:11 Resp 24 08/03/16 00:25 BP 208/100 08/02/16 22:32 Pulse Ox 94 L 08/02/16 22:32 Intake & Output 08/02/16 08/03/16 08/03/16 18:59 06:59 18:59 Intake Total 300 840 Output Total 95 Balance 205 840 Weight 58.2 kg 62.7 kg Intake: IV 100 600 Dextrose 5%-0.9% NaCl 1, 100 600 000 ml @ 50 mls/hr IV . Q20H KESHIA Rx#:[id number] Intake, IV Titration 100 200 Amount Piperacillin-Tazobactam 3 100 .375 gm In Dextrose/Water 1 50ml.bag @ 12.5 mls/hr IVPB Q12HR KESHIA Rx#: [id number] levETIRAcetam IV 750 mg 100 100 In Sodium Chloride 0.9% 100 ml @ 400 mls/hr IVPB Q12HR KESHIA Rx#:[id number] Oral 0 0 Tube Feeding 100 40 Output: Urine 95 Other: Voiding Method Indwelling Catheter Indwelling Catheter # Bowel Movements 0 0 - Exam General appearance: average body habitus, no distress - EENT Eyes: abnormal pupil, poor dentition, ptosis ENT: NA/AT, no thrush Ears: bilateral: normal - Neck Neck: no lymphadenopathy, normal ROM, no rigidity, no stridor, no thyromegaly Carotids: bilateral: upstroke delayed Thyroid: bilateral: normal size - Respiratory Respiratory: bilateral: diminished, dullness, rales, rhonchi, wheezing, Mega- Lin breathing - Cardiovascular Rhythm: regular Heart sounds: normal: S1, S2 Abnormal Heart Sounds: systolic murmur, no diastolic murmur, no rub, S3 Gallop, no click - Gastrointestinal General gastrointestinal: decreased bowel sounds, soft, no tenderness, no ventral hernia - Integumentary Integumentary: normal, normal turgor - Neurologic Neurologic: CNII-XII intact - Musculoskeletal Musculoskeletal: generalized weakness - Psychiatric Psychiatric: no A&O x's 3, no appropriate affect, no intact judgment & insight - Labs CBC & Chem 7: 08/03/16 06:47 08/03/16 06:47 Labs: Abnormal Lab Results - Last 24 Hours (Table) 08/02/16 08/02/16 08/03/16 Range/Units 12:41 17:57 00:27 POC Glucose (mg/dL) 276 H 200 H 280 H (75-99) mg/dL 08/03/16 Range/Units 06:25 POC Glucose (mg/dL) 491 H (75-99) mg/dL Microbiology - Last 24 Hours (Table) 07/30/16 21:22 Gram Stain - Final Sputum Sputum Culture - Final Escherichia coli Assessment and Plan Plan: 1. Acute Hypoxemic vent-Dependent respiratory failure with respiratory and cardiac arrest due to aspiration pneumonia.self extubated. Followed by Sid Elias, [place]. 2. Lingular Pneumonia. Continue as in #1 3. Hypertension and hypertensive cardiovascular disease . Continue lclonidine patch 4. Anoxic encephalopathy. Neurology is following. IV Keppra. 5. Diabetes mellitus type 1. resume Levemir and Humalog per scale. 6. History of TIA/CVA. Stable. 7. End-stage renal disease on hemodialysis. Neurology following for hemodialysis. 8. Chronic low back pain with chronic pain syndrome. 9. DVT prophylaxis. Continue heparin subcutaneously. 10. GI prophylaxis. Continue Protonix. 11. Anemia of renal disease. Prognosis dismal. Impression and plan of care have been directed as dictated by the signing physician. Erlinda Vidales nurse practitioner acting as scribe for signing physician.
[2016-08-03 10:05] LABS: Glucose,Whole Blood 433 mg/dL (75-99)
--- NOTE | 2016-08-03 10:50 | XR ---
EXAMINATION TYPE: XR chest 1V DATE OF EXAM: 08/03/2016 HISTORY: Shortness of breath. COMPARISON: 08/02/2016 TECHNIQUE: Single view of the chest is submitted. FINDINGS: Demonstrated are scattered senescent parenchymal change. Scattered areas of infiltrate greatest within the right upper lobe have progressed. Correlate for pne umonia. The heart is stable. Hilar and mediastinal structures are within normal limits. Degenerative changes are seen of the dorsal spine. NG tube is unchanged. IMPRESSION: 1. Scattered areas of infiltrate greatest within the right upper lobe have progressed. Correlate for pneumonia.
[2016-08-03] MEDS: MORPHINE SULFATE (100 MG/2 ML) 100 MG in SODIUM CHLORIDE 0.9% 100 ML IV SCH (12:50)
--- NOTE | 2016-08-03 13:21 | P.PN ---
Subjective Principal diagnosis: This is a 50-year-old male with ESRD on dialysis Thursday where a cardiac arrest after he choked on some food. He has been off of the ventilator after self extubating himself but is obtunded and unresponsive. He is currently on tube feeding. He is not responding at all. He is in severe respiratory distress on a morphine drip after being converted to a comfort care hospice program. EEG has been done and repeat EEG is pending echocardiogram reveals 55-60% ejection fraction and mild valvular dysfunction. Computed tomography scan of the brain was rather unremarkable except for chronic ischemic changes. Spoke to the family multiple members were in the room and answered all the questions. + On the case Objective - Vital Signs Vital signs: Vital Signs Temp 98.4 F 08/03/16 07:00 Pulse 112 H 08/03/16 11:12 Resp 40 H 08/03/16 12:00 BP 187/83 08/03/16 07:00 Pulse Ox 90 L 08/03/16 07:00 Intake & Output 08/02/16 08/03/16 08/03/16 18:59 06:59 18:59 Intake Total 300 840 180 Output Total 95 30 Balance 205 840 150 Weight 58.2 kg 62.7 kg Intake: IV 100 600 Dextrose 5%-0.9% NaCl 1, 100 600 000 ml @ 50 mls/hr IV . Q20H KESHIA Rx#:[id number] Intake, IV Titration 100 200 Amount Piperacillin-Tazobactam 3 100 .375 gm In Dextrose/Water 1 50ml.bag @ 12.5 mls/hr IVPB Q12HR KESHIA Rx#: [id number] levETIRAcetam IV 750 mg 100 100 In Sodium Chloride 0.9% 100 ml @ 400 mls/hr IVPB Q12HR KESH[facility] Rx#:[id number] Oral 0 0 0 Tube Feeding 100 40 180 Output: Urine 95 30 Other: Voiding Method Indwelling Catheter Indwelling Catheter Indwelling Catheter # Bowel Movements 0 0 0 - Labs CBC & Chem 7: 08/03/16 06:47 08/03/16 06:47 Labs: Abnormal Lab Results - Last 24 Hours (Table) 08/02/16 08/03/16 08/03/16 Range/Units 17:57 00:27 06:25 WBC (3.8-10.6) k/uL RBC (4.30-5.90) m/uL Hgb (13.0-17.5) gm/dL Hct (39.0-53.0) % Sodium (137-145) mmol/L Chloride (98-107) mmol/L Carbon Dioxide (22-30) mmol/L BUN (9-20) mg/dL Creatinine (0.66-1.25) mg/dL Glucose (74-99) mg/dL POC Glucose (mg/dL) 200 H 280 H 491 H (75-99) mg/dL Phosphorus (2.5-4.5) mg/dL 08/03/16 08/03/16 08/03/16 Range/Units 06:47 06:47 09:59 WBC 12.4 H (3.8-10.6) k/uL RBC 3.30 L (4.30-5.90) m/uL Hgb 10.6 L (13.0-17.5) gm/dL Hct 33.0 L (39.0-53.0) % Sodium 136 L (137-145) mmol/L Chloride 97 L (98-107) mmol/L Carbon Dioxide 18 L (22-30) mmol/L BUN 60 H (9-20) mg/dL Creatinine 4.71 H (0.66-1.25) mg/dL Glucose 506 H* (74-99) mg/dL POC Glucose (mg/dL) 433 H (75-99) mg/dL Phosphorus 4.8 H (2.5-4.5) mg/dL
--- NOTE | 2016-08-03 15:30 | P.PN ---
Subjective This patient is a 50-year-old male who is evaluated today in the intensive care unit after suffering cardiac arrest. Patient self extubated himself yesterday. He remains off the ventilator today. The patient remains essentially obtunded and stuporous. He has only occasional movements noted by the ICU nursing staff. Patient underwent routine EEG today which is reviewed. EEG is severely slow and consistent with severe anoxic encephalopathy. There is also early sign for burst suppression pattern. Some sharp wave activity was noted. We are recommending to place the patient on IV Keppra for further management. Patient is status post cardiac arrest and is being followed closely by cardiology. Patient has a known history of severe cardiovascular hypertensive disease. He has end-stage renal disease as well and is on hemodialysis. We will try to obtain a follow-up EEG tomorrow after he is loaded with anticonvulsant medication tonight. We will recheck to see if there is any significant changes in his EEG background. He underwent a computed tomography scan of the brain today which revealed atrophy and chronic small vessel ischemic changes. No other acute findings were noted. He has not shown any significant improvement in his overall mental status today. This patient's overall prognosis at this time remains very guarded. He has evidence of a severe anoxic encephalopathy following cardiac arrest. Apparently last night the patient developed some Mega-Lin breathing pattern. His public guardian was contacted by Dr. Woods and the patient was made a NO CODE STATUS. This morning it was decided to discontinue the EEG follow-up as a patient has a very poor prognosis. He is to be transferred out of the ICU and will continue with supportive care. His sputum does show E. coli. His renal function is still poor but slightly improved. He has not been responding to pain. He essentially remains comatose. Apparently family is considering hospice care for this patient. Patient was examined on the medical floor today. Nephew was at bedside and he was updated on this patient's poor prognosis. We will await further recommendations from the multiple specialists that are seeing this patient. According to the nursing staff Dr. Woods who did talk to the legal guardian today. They have now made him comfort care measures and he has been placed on a morphine drip. We did discuss all of his findings today in detail with the legal guardian as well as his who was at bedside. All of their questions were answered to the best of my ability. They are aware of his very poor prognosis and neurological findings at this time. We will await further recommendations from multiple specialists that are seeing this patient. His long-term prognosis at this time is very poor. We will continue close neurological follow-up for the patient during this admission. Objective - Vital Signs Vital signs: Vital Signs Temp 98.4 F 08/03/16 07:00 Pulse 112 H 08/03/16 11:12 Resp 34 H 08/03/16 08:00 BP 187/83 08/03/16 07:00 Pulse Ox 90 L 08/03/16 07:00 Intake & Output 08/02/16 08/03/16 08/03/16 18:59 06:59 18:59 Intake Total 300 840 180 Output Total 95 30 Balance 205 840 150 Weight 58.2 kg 62.7 kg Intake: IV 100 600 Dextrose 5%-0.9% NaCl 1, 100 600 000 ml @ 50 mls/hr IV . Q20H KESHIA Rx#:[id number] Intake, IV Titration 100 200 Amount Piperacillin-Tazobactam 3 100 .375 gm In Dextrose/Water 1 50ml.bag @ 12.5 mls/hr IVPB Q12HR [facility]ESH[facility] Rx#: [id number] levETIRAcetam IV 750 mg 100 100 In Sodium Chloride 0.9% 100 ml @ 400 mls/hr IVPB Q12HR KESHIA Rx#:[id number] Oral 0 0 0 Tube Feeding 100 40 180 Output: Urine 95 30 Other: Voiding Method Indwelling Catheter Indwelling Catheter Indwelling Catheter # Bowel Movements 0 0 0 - Exam Physical examination: PHYSICAL EXAMINATION: Patient is resting comfortably in bed. Patient remains comatose with Mega-Lin breathing pattern. VITAL SIGNS: Blood pressure is [187/83]. Heart rate is [124]. Respiration is [34 ]. Patient has labored breathing. Temperature is [98.4]. HEENT: Head is atraumatic, neck is supple, there were no carotid bruits. CHEST: Lungs are clear to auscultation and percussion. CARDIAC: S1, S2 normal rate and rhythm. There is no murmur. ABDOMEN: Soft and nontender. Bowel sounds are present. EXTREMITIES: There is no pedal edema. Peripheral pulses are present. Neurological examination: Patient's neurological examinations unchanged from yesterday. Patient remains comatose and has Mega-Lin respiratory pattern. Patient is now been made comfort care measures. - Labs CBC & Chem 7: 08/03/16 06:47 08/03/16 06:47 Labs: Abnormal Lab Results - Last 24 Hours (Table) 08/02/16 08/03/16 08/03/16 Range/Units 17:57 00:27 06:25 WBC (3.8-10.6) k/uL RBC (4.30-5.90) m/uL Hgb (13.0-17.5) gm/dL Hct (39.0-53.0) % Sodium (137-145) mmol/L Chloride (98-107) mmol/L Carbon Dioxide (22-30) mmol/L BUN (9-20) mg/dL Creatinine (0.66-1.25) mg/dL Glucose (74-99) mg/dL POC Glucose (mg/dL) 200 H 280 H 491 H (75-99) mg/dL Phosphorus (2.5-4.5) mg/dL 08/03/16 08/03/16 08/03/16 Range/Units 06:47 06:47 09:59 WBC 12.4 H (3.8-10.6) k/uL RBC 3.30 L (4.30-5.90) m/uL Hgb 10.6 L (13.0-17.5) gm/dL Hct 33.0 L (39.0-53.0) % Sodium 136 L (137-145) mmol/L Chloride 97 L (98-107) mmol/L Carbon Dioxide 18 L (22-30) mmol/L BUN 60 H (9-20) mg/dL Creatinine 4.71 H (0.66-1.25) mg/dL Glucose 506 H* (74-99) mg/dL POC Glucose (mg/dL) 433 H (75-99) mg/dL Phosphorus 4.8 H (2.5-4.5) mg/dL Assessment and Plan (1) Anoxic encephalopathy Status: Acute Code(s): G93.1 - ANOXIC BRAIN DAMAGE, NOT ELSEWHERE CLASSIFIED (2) Cardiac arrest Status: Acute Code(s): I46.9 - CARDIAC ARREST, CAUSE UNSPECIFIED (3) Chronic renal failure Status: Acute Code(s): N18.9 - CHRONIC KIDNEY DISEASE, UNSPECIFIED (4) Coma Status: Acute Code(s): R40.20 - UNSPECIFIED COMA Plan: This patient is a 50-year-old male who apparently was eating his family in July suddenly when didn't do full cardiac arrest. He had choked on the food. He was intubated initially and transferred to the intensive care unit. Computed tomography scan of the brain failed to reveal any acute changes. Routine EEG revealed evidence of severe slowing consistent with anoxic encephalopathy following cardiac arrest. Dr. Woods did have a discussion today with the legal guardian who has requested the patient to be made comfort care measures today. Patient continues on the medical floor with Mega-Lin respiration pattern. He has been placed on a morphine drip. We did have a long discussion today with the patient's and legal guardian at bedside. They are aware of his very poor prognosis. We will continue to monitor his condition closely during this admission.
--- NOTE | 2016-08-03 19:30 | PN ---
José Manuel Akhtar is a 50-year-old patient who is here in the ICU for a number days. He initially presented with cardiopulmonary arrest secondary to aspirating a bologna sandwich. He became unresponsive and was resuscitated initially by the family. Unfortunately, he sustained significant anoxic brain injury. The patient was extubated here in the ICU and eventually moved out to the floor. There was contact made with the person responsible for his care. Anyway, the patient is doing poorly. The patient was started on a morphine drip. The patient was placed on oxygen therapy. Basically we just transitioned to comfort measures. The patient's vital signs include temperature 98.4, T-max 100.8. His heart rate is anywhere from 112 to 124, respiratory rate from 34 to 40 per minute. No saturations recently documented. The last was at room-air saturation of 90%. Appears quite tachypneic and dyspneic. HEENT examination is grossly unremarkable. Mucous membranes are dry. Neck is supple. Full range of motion. No adenopathy. Cardiovascular examination reveals tachycardia. Lungs reveal some coarse rhonchi bilaterally. Breath sounds equal. ABDOMEN: Soft. EXTREMITIES: Intact. No edema. Skin is cool. No rash. Neurologic examination cannot be performed. He is basically unresponsive. Labs are reviewed. Somebody misa labs today. White count 12.4, hemoglobin 10.6, hematocrit 33, platelet count 193,000. Sodium 136, potassium 4.5, chloride 97, CO2 of 18, BUN creatinine were 60 and 4.71 and a glucose was 506. Medications are discontinued. The patient was started on a morphine drip and just some plain oxygen therapy. ASSESSMENT: 1. Acute hypoxemic respiratory failure with cardiopulmonary arrest, cardiopulmonary resuscitation and return of spontaneous circulation. The patient's sputum was positive for E. coli. The patient initially aspirated a bologna sandwich. 2. Acute anoxic/metabolic encephalopathy. 3. End-stage renal disease. 4. Diabetes mellitus with end organ involvement. 5. Hypertension. 6. Hyperlipidemia. 7. Degenerative joint disease. 8. Diabetic retinopathy with blindness. 9. Diabetic neuropathy. 10. Previous Methicillin-resistant Staph aureus infection. 11. Poor overall functional performance. PLAN: The patient was transitioned to comfort measures. No additional recommendations are made. I did talk to the caregiver. The patient was made DNR a couple nights ago. The patient seemed to be struggling and suffering. Additional recommendations and suggestions are forthcoming. Prognosis is poor.
[2016-08-04] MEDS: MORPHINE SULFATE (100 MG/2 ML) 100 MG in SODIUM CHLORIDE 0.9% 100 ML IV SCH (08:54)
[2016-08-04 12:34] VITALS: PULSE 0; RESP 0
--- NOTE | 2016-08-04 16:10 | P.DS ---
Providers Date of admission: 07/30/16 22:18 Expected date of discharge: 08/04/16 Attending physician: Teresa Golden Consults: 07/30/16 22:17 Consult Physician Routine Consulting Provider: Lashon Gil Consult Reason/Comments: Reevaluation, dialysis Do you want consulting provider notified?: Yes Consult Physician Stat Consulting Provider: Pranav Woods Consult Reason/Comments: Acute respiratory failure, aspiration pneumonitis Do you want consulting provider notified?: Yes 07/31/16 00:47 Consult Physician Routine Consulting Provider: Pako Fisher Consult Reason/Comments: cardiac arrest Do you want consulting provider notified?: Yes, Notify in am 07/31/16 13:21 Consult Physician Routine Consulting Provider: Eli Lafleur Consult Reason/Comments: cardiopulm arrest Do you want consulting provider notified?: Yes Primary care physician: Teresa Golden [facility] Course: This is a 50-year-old male with a previous medical history significant for hypertension and hypertensive cardiovascular disease, hyperlipidemia, diabetes mellitus type 1, end-stage renal disease on hemodialysis, patient has not been under my care for the past 2 years apparently he was at medical [facility] and apparently was released from there after he was assigned a public guardian currently lives in a [facility] area with his , apparently patient was just released from [facility] few days ago after he was admitted to [facility] due to Intraventricular hemorrhage of both occipital horns and was seen at [facility] then. Patient apparently was eating a Bologna sandwich at home when he chocked on on it and he became unresponsive and went into cardiac and respiratory arrest that was witnessed for 5-7 mins and CPR was staerted and he was intubated on the scene and was transported to the ER at [facility] and had Ct scan that showed ischemic changes without IVH or intracranial bleed, CXR showed aspiration pneumonia, not sure if patient went for dialysis today and patient will be seen by Pulmonary . 08/01: Patient is followed by multiple consultants including cardiology, milling machine tender, neurology. EEG is pending. Echocardiogram reveals EF of 55-60%, mild mitral regurgitation, trace tricuspid regurgitation. Repeat computed tomography scan of the brain showed stable atrophic and chronic small vessel ischemic change without acute intracranial process. Patient is not responsive. He self extubated yesterday. Pulse ox is running 97% on room air. He has been afebrile. 08/02: Dr. Lafleur has recommended Keppra. CAT scan of the brain shows atrophy and chronic small vessel ischemic change with no evidence of acute stroke or hemorrhage. EEG from yesterday shows early burst suppression pattern consistent with severe anoxic encephalopathy. Repeat EEG is scheduled for today. Discussed patient's prognosis on the phone with the patient's . Patient was made no code last evening as he was having Mega-Lin breathing. Patient does have a public guardian that made this decision. 08/03: Patient has been moved to the [facility] floor. He is continued on hemodialysis Thursday, Thursday, Thursday. He is on IV Keppra and IV Zosyn. Patient remains unresponsive and meeting with guardian is to take place on Thursday regarding further plans. 08/04: Patient on the morning of 08/04. Please see nursing documentation for details. Discharge diagnoses: 1. Acute Hypoxemic vent-Dependent respiratory failure with respiratory and cardiac arrest due to aspiration pneumonia. 2. Lingular Pneumonia. 3. Hypertension and hypertensive cardiovascular disease 4. Anoxic encephalopathy. 5. Diabetes mellitus type 1. 6. History of TIA/CVA. Stable. 7. End-stage renal disease on hemodialysis. 8. Chronic low back pain with chronic pain syndrome. 9. Anemia of renal disease. Impression and plan of care have been directed as dictated by the signing physician. Erlinda Vidales nurse practitioner acting as scribe for signing physician. Patient Condition at Discharge: Undetermined Plan - Discharge Summary New Discharge Prescriptions: No Action Labetalol [Trandate] 400 mg PO BID 30 Days hydrALAZINE HCL [Apresoline] 50 mg PO TID Insulin Detemir [Levemir] 10 unit SQ DAILY Calcium Acetate [PhosLo] 1,334 mg PO AC-TID Insulin Aspart [NovoLOG] See Protocol SQ ACHS amLODIPine [Norvasc] 10 mg PO DAILY Prochlorperazine [Compazine] 10 mg PO Q6H PRN PRN Reason: Nausea Ketoconazole 2% Shampoo [Nizoral] 1 applic TOPICAL DAILY PRN PRN Reason: Skin Irritation Tamsulosin [Flomax] 0.4 mg PO DAILY #30 cap oxyCODONE HCL 20 mg PO TID PRN PRN Reason: Pain Lidocaine 5% Patch [Lidoderm] 1 patch TOPICAL DAILY oxyCODONE HCL [OxyCONTIN] 60 mg PO Q12H Gabapentin [Neurontin] 400 mg PO HS Lisinopril [Zestril] 40 mg PO DAILY Hydrocodone/Acetaminophen [Danese 10-325 Tablet] 1 tab PO QID PRN PRN Reason: Pain ALPRAZolam [Xanax] 1 mg PO BID Discharge Medication List Labetalol [Trandate] 400 mg PO BID 30 Days 08/20/13 [Rx] Insulin Detemir [Levemir] 10 unit SQ DAILY 09/07/14 [History] hydrALAZINE HCL [Apresoline] 50 mg PO TID 09/07/14 [History] Calcium Acetate [PhosLo] 1,334 mg PO AC-TID 11/09/15 [History] Insulin Aspart [NovoLOG] See Protocol SQ ACHS 11/09/15 [History] Prochlorperazine [Compazine] 10 mg PO Q6H PRN 11/09/15 [History] amLODIPine [Norvasc] 10 mg PO DAILY 11/09/15 [History] Ketoconazole 2% Shampoo [Nizoral] 1 applic TOPICAL DAILY PRN 04/04/16 [History] Tamsulosin [Flomax] 0.4 mg PO DAILY #30 cap 04/07/16 [Rx] ALPRAZolam [Xanax] 1 mg PO BID 07/31/16 [History] Gabapentin [Neurontin] 400 mg PO HS 07/31/16 [History] Hydrocodone/Acetaminophen [Danese 10-325 Tablet] 1 tab PO QID PRN 07/31/16 [ History] Lidocaine 5% Patch [Lidoderm] 1 patch TOPICAL DAILY 07/31/16 [History] Lisinopril [Zestril] 40 mg PO DAILY 07/31/16 [History] oxyCODONE HCL 20 mg PO TID PRN 07/31/16 [History] oxyCODONE HCL [OxyCONTIN] 60 mg PO Q12H 07/31/16 [History] Follow up Appointment(s)/Referral(s): Teresa Golden MD [Primary Care Provider] - 1-2 days Discharge Disposition: - Preliminary Cause of Preliminary Cause of : aspiration pneumonia
== END 2016-08-04 11:47 | disposition expired | DRG 208 ==
LOC: EC 20:43 → 6ICU 22:18 → 5MS5E 08-02 11:55
PROVIDERS: ADMIT Internal Medicine; ATTEND Internal Medicine
PROC: 5A1945Z Respiratory Ventilation, 24-96 Consecutive Hours (ICD-10-PCS; principal; 2016-07-30)
PROC: 0DH67UZ Insertion of Feeding Device into Stomach, Via Natural or Artificial Opening (ICD-10-PCS; 2016-07-31)
PROC: 5A1D60Z (ICD-10-PCS; 2016-07-31)
DX: J69.0 Pneumonitis due to inhalation of food and vomit (principal); I46.9 Cardiac arrest, cause unspecified; J96.01 Acute respiratory failure with hypoxia; R40.20 Unspecified coma; G93.1 Anoxic brain damage, not elsewhere classified; N18.6 End stage renal disease; E87.2 Acidosis; I13.11 Hypertensive heart and chronic kidney disease without heart failure, with stage 5 chronic kidney disease, or end stage renal disease; Z66 Do not resuscitate; Z51.5 Encounter for palliative care; E10.22 Type 1 diabetes mellitus with diabetic chronic kidney disease; E10.43 Type 1 diabetes mellitus with diabetic autonomic (poly)neuropathy; E10.40 Type 1 diabetes mellitus with diabetic neuropathy, unspecified; E10.649 Type 1 diabetes mellitus with hypoglycemia without coma; E10.319 Type 1 diabetes mellitus with unspecified diabetic retinopathy without macular edema; K31.84 Gastroparesis; E87.70 Fluid overload, unspecified; I25.5 Ischemic cardiomyopathy; G89.4 Chronic pain syndrome; D63.1 Anemia in chronic kidney disease; E78.5 Hyperlipidemia, unspecified; F17.200 Nicotine dependence, unspecified, uncomplicated; H40.9 Unspecified glaucoma; I34.0 Nonrheumatic mitral (valve) insufficiency; K29.70 Gastritis, unspecified, without bleeding; N42.9 Disorder of prostate, unspecified; M54.5 Low back pain; K21.9 Gastro-esophageal reflux disease without esophagitis; F12.90 Cannabis use, unspecified, uncomplicated; H54.8 Legal blindness, as defined in USA; M19.91 Primary osteoarthritis, unspecified site; Z99.2 Dependence on renal dialysis; Z86.73 Personal history of transient ischemic attack (TIA), and cerebral infarction without residual deficits; Z86.14 Personal history of Methicillin resistant Staphylococcus aureus infection; Z88.5 Allergy status to narcotic agent; Z79.4 Long term (current) use of insulin; Z79.891 Long term (current) use of opiate analgesic; Z79.899 Other long term (current) drug therapy
CPT/HCPCS: 36415; 36600; 43753; 51702; 70450; 71010; 80048; 80053; 80306; 81001; 82009; 82550; 82553; 82805; 83036; 83735; 83880; 84100; 84484; 85025; 85027; 85610; 85730; 87070; 87077; 87086; 87186; 87205; 90935; 93005; 93306; 94002; 94003; 94640; 95816; 96365; 96366; 96367; 99291